=== PATIENT | male | born 1950 | race Caucasian/White ===

== ENCOUNTER 2017-11-20 13:46 | Emergency (ER) | payer MEDICARE, OTHER ==
[~2017-11-20] VITALS: Ht 175.3 cm; Wt 99.8 kg
--- OUTSIDE RECORDS SUMMARY | ~2017-11-20 | XMS | Encounter Summary ---
Demographics + + + | Address | [address] | | | [place] [address] | + + + | Home Phone | | + + + | Preferred Language | Unknown | + + + | Marital Status | | + + + | Oriental Orthodox Affiliation | 1041 | + + + | Race | Unknown | + + + | Ethnic Group | Unknown | + + + Author + + + | Author | [facility] | + + + | Organization | [facility] | + + + | Address | Unknown | + + + | Phone | Unavailable | + + + Support + + +---------+ + | Name | Relationship | Address | Phone | + + +---------+ + | Isaura Tyson | ECON | Unknown | | + + +---------+ + | Valarie Pearce | ECON | Unknown | | + + +---------+ + Care Team Providers + +------+ + | Care Supervisor [place] Department Name | Role | Phone | + +------+ + | Fracisco Guerrero MD | PCP | | + +------+ + Reason for Visit +--------+ + | Reason | Comments | +--------+ + | Other | Emphysema | +--------+ + Consult and Treat (Urgent) + +--------+ + + + + | Status | Reason | Specialty | Diagnoses / | Referred By | Referred To | | | | | Procedures | Contact | Contact | + +--------+ + + + + | Pending | | Pulmonology | Diagnoses | Sersilas, | Gu[place], | | Review | | | Emphysema, | Julio New, | Luzmaria | | | | | unspecified | [address] | MD Barbara | | | | | ([facility]) | TATONE | [address] | | | | | Hypoxemia | [place] | | | | | | Pulmonary | [address] | [place], [place] | | | | | nodules | Phone: | [address] Phone: | | | | | | [phone] | [phone] | | | | | | Fax: | Fax: | | | | | | [phone] | [phone] | + +--------+ + + + + Encounter Details +--------+---------+ + + + | Date | Type | Department | Care Team | Description | +--------+---------+ + + + | 09/27/ | Office | [facility] | Guero, | Asthma with COPD | | 2018 | Visit | Pulmonology [address] | Luzmaria Jimenez, | (chronic obstructive | | | | [address] [address] | [address] | pulmonary disease) | | | | [place], [place] | [place] [address] | ([facility]) (Primary Dx); | | | | [address] | [phone] | Nocturnal hypoxemia; | | | | [phone] | | Multiple pulmonary | | | | | | nodules; JONEL | | | | | | (obstructive sleep | | | | | | apnea); Personal | | | | | | history of tobacco | | | | | | use, presenting | | | | | | hazards to health | +--------+---------+ + + + Social History + +-------+ +--------+ + | Tobacco Use | Types | Packs/Day | Years | Date | | | | | Used | | + +-------+ +--------+ + | Former Smoker | | 3 | 20 | Quit: 06/09/1997 | + +-------+ +--------+ + + +---+---+---+ | Smokeless Tobacco: | | | | | Never Used | | | | + +---+---+---+ + + +---------+ + | Alcohol Use | Drinks/We | oz/Week | Comments | | | ek | | | + + +---------+ + | No | | | | + + +---------+ + + + + | Sex Assigned at | Date Recorded | | | | + + + | Not on file | | + + + as of this encounter Last Filed Vital Signs + + + + | Vital Sign | Reading | Time Taken | + + + + | Blood Pressure | 91/60 | 09/27/2017 10:47 AM PDT | + + + + | Pulse | 75 | 09/27/2017 10:47 AM PDT | + + + + | Temperature | 36.8 C (98.3 F) | 09/27/2017 10:47 AM PDT | + + + + | Respiratory Rate | - | - | + + + + | Oxygen Saturation | 92% | 09/27/2017 10:47 AM PDT | + + + + | Inhaled Oxygen | - | - | | Concentration | | | + + + + | Weight | - | - | + + + + | Height | 175.3 cm (5' 9") | 09/27/2017 10:47 AM PDT | + + + + | Body Mass Index | - | - | + + + + in this encounter Instructions Patient Instructions - Luzmaria Jack MD - 09/27/2017 10:45 AM PDTPLS ASK YOU R PCP TO REFER YOU TO SLEEP MEDICINE FOR EVALUATION OF OBSTRUCTIVE SLEEP APNEAin this encoun ter Progress Notes Luzmaria Jack MD - 09/27/2017 10:45 AM PDTFormatting of this note may be dif ferent from the original. Subjective: Patient ID: Cheko Salcedo is a 67 y.o. male with COPD/emphysema, chronic resp failur e with hypoxemia, Schizoaffective d/o, HTN, HPI Mr Salcedo is a pleasant 67 yr old man who had asthma as a child (was on inhaled treatme nts), and who has been diagnosed about 7 years ago with COPD, and has been on chronic oxygen therapy for at least 2 years ago. 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 He underwent IR embolization and ex lap for this. He was found to have a bleeding ulcer, but no evidence of malignancy. He was recently admitted in [facility] in June for an acute worsening of his dyspnea and was treated as a COPD exacerbation. He has been m aintained on Incruse Ellipta daily and Pulmicort nebulization BID. He is on oxygen at night at 2LPM. He also is on daily furosemide due to pedal edema. Clinically, he is short of breath with minimal exertion. He has difficulty walking on his f eet without assistance. He is awaiting a walker that was prescribed by his PCP. He has a chr onic cough productive of yellow to white phlegm. He denies hemoptysis. He is suspected of shen ving JONEL but has not undergone evaluation for this. He denies chest pains, but has pedal feliberto ma. He has no PNDs and no orthopnea. He lays usually on his side to sleep. He snores at [facility]. He denies dysphagia or aspiration episodes. He also denies heart burn or reflux s/s. He h as no seasonal allergies. He comes in with a home health care provider and his sister. SOCIAL HISTORY He is a past smoker, stopped 20 years ago, 2-3 packs a day for 30 years. 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 He denies any occupational exposures. He is origin ally from [place] and moved to [place] in 1979. He has no animals at home, but used to have cats. He d enies owning birds. The following portions of the patient's history were reviewed and updated as appropriate an d is available elsewhere in the record: allergies, current medications, past family history, past medical history, past social history, past surgical history and problem list. Review of Systems Constitutional: Positive for fatigue. Negative for activity change, appetite change, chills , diaphoresis, fever and unexpected weight change. HENT: Negative for congestion, nosebleeds, postnasal drip, rhinorrhea and sore throat. Eyes: Negative for visual disturbance. Respiratory: Positive for apnea (suspected), cough, shortness of breath and wheezing. Negat zac for choking, chest tightness and stridor. Cardiovascular: Positive for leg swelling. Negative for chest pain and palpitations. Gastrointestinal: Negative for constipation, diarrhea and nausea. Genitourinary: Negative for dysuria and frequency. Musculoskeletal: Positive for arthralgias and gait problem. Negative for joint swelling, my algias and neck pain. Skin: Negative for rash. Neurological: Negative for dizziness, weakness and light-headedness. Hematological: Negative for adenopathy. Psychiatric/Behavioral: Negative for sleep disturbance. Active Ambulatory Problems Diagnosis Date Noted Hypoxemia 06/09/2017 COPD (chronic obstructive pulmonary disease) ([facility]) 06/09/2017 Schizoaffective disorder ([facility]) 06/09/2017 Essential hypertension 06/09/2017 Memory deficits 06/09/2017 Resolved Ambulatory Problems Diagnosis Date Noted Weakness 06/09/2017 Past Medical History: Diagnosis Date Back injury Bleeding ulcer COPD (chronic obstructive pulmonary disease) ([facility]) Head injury Other chronic pain Schizoaffective disorder ([facility]) History reviewed. No pertinent surgical history. Objective: Physical Exam BP 91/60 (BP Location: Left upper arm, Patient Position: Sitting) | Pulse 75 | Temp 98.3 F (36.8 C) (Oral) | Ht 1.753 m (5' 9") Comment: per pt | SpO2 92% Vital signs reviewed. Oxygen saturation noted at 92% on ambient air GENERAL: obese, pale, pleasant, cooperative, oriented, not in distress HEENT: pink conjunctiva, anicteric sclerae, moist oral mucosae and without any lesions, nor mal appearing nasal mucosae; JVP cannot be assessed; MALAMPATTI 4; no thyromegaly; no cervic olymphadenopathies CVS: PMI laterally displaced, NRRR, S1 and S2, no murmurs/gallops/rubs CHEST: Examination of the chest showed a mild kyphosis. LUNGS: Normal effort, Equal in expansion, resonant to percussion, diffuse wheezing present, especially in bases, no crackles ABDOMEN: Protuberant abdomen, NABS, non-tender on palpation, liver span normal, no masses p alpated EXTREMITIES: good distal pulses, no cyanosis, no clubbing, no nail abnormalities, with +2 p edal edema NEURO: awake and oriented, no focal neurologic deficits, flat affect, on a wheelchair today LABORATORY AND IMAGING Pulmonary Function Test: 06/25/17 FEV1 1.45 (45%) FVC 2.19 (52%) FEV1/FVC 66 TLC RV/TLC DLCO CTA of the chest done on 06/09/17 reviewed Pulmonary Arteries: Diagnostic quality: Nearly nondiagnostic secondary to poor contrast opacification of the pu lmonary arteries. No gross evidence of large central pulmonary embolism. RV/LV is within normal limits. There is no interventricular septal bowing. There is trace r eflux of contrast material in the IVC. Lungs/Pleura: No consolidation. Scattered calcified granulomas measuring up to 7 mm. No ple ural effusion or pneumothorax. Mild bilateral centrilobular emphysema. Mediastinum: The heart size is normal. No pericardial effusion. No adenopathy. Thoracic Aorta: Ectatic ascending thoracic aorta measures up to 4.0 cm in diameter. Upper Abdomen: Unremarkable. Other: Focal kyphosis in the upper thoracic spine secondary to severe compression deformity at T3 which appears chronic. No acute osseous abnormality. Echo done on 06/10/17 reviewed Impression 1. This was a technically difficult study with suboptimal views. 2. Overall left ventricular systolic function is normal with, an EF between 60 - 65 %. 3. The right ventricle is moderately enlarged measuring between 3.8 - 4.1 cm. Assessment and Plan: 1. Asthma with COPD (chronic obstructive pulmonary disease) (HCC) Mr Salcedo is a 67 yr old man who I suspect has asthma-COPD overlap. He has declined in the past years, and especially from his last hospitalization. I have recommended changing In srikanth to Anoro, which will provide him with a LABA and a LAMA. Continue Budesonide nebulizat ion BID. I have educated the patient about the nature of COPD. This is a progressive disease, and igor ng function, unfortunately, declines every year, despite present therapy and even oxygen use . Our main goal is to prevent further exacerbation, and to moderate the manifestation of agustin g function decline by ensuring conditioning of muscles that are responsible for the extra ef fort of breathing, as well as to improve patient's endurance. These may all be accomplished by a formal exercise regimen, and/or by participating in a formal Pulmonary Rehabilitation P mariano. This program has been shown to improve functional status, exercise capacity, percept ion of dyspnea, and even has a role in improving depression in these patients. He and his si ster agreed, and so have sent a Pulm Rehab request through [facility]. He reportedly had a recent PFT done over there and we are awaiting its result. - umeclidinium-vilanterol (ANORO ELLIPTA) 62.5-25 MCG/INH inhaler; Inhale 1 puff into the l ungs daily. Dispense: 1 each; Refill: 11 2. Nocturnal hypoxemia Continue with O2 supplementation at night at 2LPM. His career resource specialist was instructed to let us know if his saturations are falling to 88% and below during the day. He may need to be place d on daytime O2 at that point. 3. Multiple pulmonary nodules He has small pulm nodules that are likely post inflammatory. Given his past history of smok ing, he will need to have a repeat CT in 2019 as part of continued surveillance. 4. JONEL (obstructive sleep apnea) I suspect that he has untreated OJNEL and I have encouraged him to talk to his PCP regarding this and potentially sending him to a sleep doctor close to his home. 5. Personal history of tobacco use, presenting hazards to health Continue being vigilant about signs of malignancy. CT chest should be repeated in June. Thank you for allowing us to participate in this patient's care. A return visit has been re quested/scheduled in three months for close clinical follow up. The patient was instructed t o call our clinic for any questions, and for any concerns regarding worsening dyspnea, cough or change in sputum production. We will see the patient sooner than the recommended follow up date, if with any worsening of symptoms. Luzmaria Jack MD Pulmonary and Critical Care Medicine [facility] [address] [place] [address] . in this encounter Plan of Treatment +--------+---------+ + + + | Date | Type | Specialty | Care Team | Description | +--------+---------+ + + + | 12/21/ | Office | Pulmonology | Guero, | | | 2017 | Visit | | Luzmaria Jimenez, | | | | | | MD [address] | | | | | | [place] [address] | | | | | | [phone] | | | | | | | | +--------+---------+ + + + as of this encounter Visit Diagnoses + + | Diagnosis | + + | Asthma with COPD (chronic obstructive pulmonary disease) (HCC) - Primary | + + | Chronic obstructive asthma, unspecified | + + | Nocturnal hypoxemia | + + | Hypoxemia | + + | Multiple pulmonary nodules | + + | Other nonspecific abnormal finding of lung field | + + | JONEL (obstructive sleep apnea) | + + | Obstructive sleep apnea (adult) (pediatric) | + + | Personal history of tobacco use, presenting hazards to health | + +
--- OUTSIDE RECORDS SUMMARY | ~2017-11-20 | XMS | Encounter Summary ---
Demographics + + + | Address | [address] | | | [place] [address] | + + + | Home Phone | | + + + | Preferred Language | Unknown | + + + | Marital Status | | + + + | Restorationist Affiliation | 1041 | + + + | Race | Unknown | + + + | Ethnic Group | Unknown | + + + Author + + + | Author | [facility] | + + + | Organization | [facility] | + + + | Address [...] Team Providers + +------+ + | Care Contact Lens Technician Name | Role | Phone | + +------+ + | Julio Motta | PCP | | + +------+ + Encounter Details +--------+ + + + + | Date | Type | Department | Care Team | Description | +--------+ + + + + | 10/26/ | Telephone | [facility] | Jeana Solitario RN | | | 2017 | | Pulmonology [address] | | | | | | [address] | | | | | | [place] | | | | | | [address] | | | | | | [phone] | | | +--------+ + + + + Social History + +-------+ [...] + + + as of this encounter Plan of Treatment +--------+---------+ + + + | Date | Type | Specialty | Care Team | Description | +--------+---------+ + + + | 12/21/ | Office | Pulmonology | [place], | | | 2017 | Visit | | Luzmaria Jimenez, | | | | | | MD [address] | | | | | | [facility] [address] | | | | | | [phone] | | | | | | | | +--------+---------+ + + + as of this encounter Visit Diagnoses Not on filein this encounter"
--- OUTSIDE RECORDS SUMMARY | ~2017-11-20 | XMS | Encounter Summary ---
Demographics + + + | Address | [address] | | | [place] [address] | + + + | Home Phone | | + + + | Preferred Language | Unknown | + + + | Marital Status | | + + + | Jain Affiliation | [id number] | + + + | Race | Unknown | + + + | Ethnic Group | Unknown | + + + Author + + + | Author | [facility] | + + + | Organization | [facility] | + + + | Address [...] Team Providers + +------+ + | Care Program Technician Name | Role | Phone | + +------+ + | Julio Motta | PCP | | + +------+ + Reason for Visit + + + | Reason | Comments | + + + | Shortness of Breath | | + + + | Weakness | | + + + Auth/Cert +--------+--------+ + + + + | Status | Reason | Specialty | Diagnoses / | Referred By | Referred To | | | | | Procedures | Contact | Contact | +--------+--------+ + + + + | | | Internal | Diagnoses | | [facility] | | | | Medicine | Dyspnea on | | [address] | | | | | exertion | | [address] | | | | | COPD with | | [address] | | | | | acute | | [place], [place] | | | | | exacerbation | | [address] Phone: | | | | | ([facility]) | | [phone] | +--------+--------+ + + + + Encounter Details +--------+ + + + + | Date | Type | Department | Care Team | Description | +--------+ + + + + | 09/28/ | Hospital | [facility] | Delfino Ochoa | COPD with acute | | 2018 - | Encounter | [facility] | D, DO [address] | exacerbation (HCC) | | | | [address] | [address] [place], [place] | (Primary Dx); | | 10/01/ | | [address] | [address] | Dyspnea on exertion; | | 2017 | | [place] [address] | Beata Jones DO | Hypoxemia; Leg | | | | [phone] | [address] | swelling | | | | | [place] [address] | | | | | | [phone] | | | | | | | | | | | | Ursula Friedman MD [address] | | [address] | | | | | | [place] [address] | | | | | | [phone] | | | | | | | | +--------+ + + + [...] + + + | Blood Pressure | 111/68 | 10/01/2017 12:30 PM PDT | + + + + | Pulse | 71 | 10/01/2017 12:30 PM PDT | + + + + | Temperature | 37.1 C (98.8 F) | 10/01/2017 12:30 PM PDT | + + + + | Respiratory Rate | 20 | 10/01/2017 12:30 PM PDT | + + + + | Oxygen Saturation | 91% | 10/01/2017 12:30 PM PDT | + + + + | Inhaled Oxygen | - | - | | Concentration | | | + + + + | Weight | 99.7 kg (219 lb 12.8 | 10/01/2017 2:58 AM PDT | | | oz) | | + + + + | Height | 175.3 cm (5' 9") | 09/28/2017 8:00 PM PDT | + + + + | Body Mass Index | 32.46 | 10/01/2017 2:58 AM PDT | + + + + in this encounter Discharge Summaries Ursula Friedman MD - 10/01/2017 12:47 PM PDTFormatting of this note may be different from the or [facility]. [facility]: Hospitalist Discharge Summary Date of Admission: 09/28/2017 Date of Discharge: 10/01/2017 Discharge Provider: Ursula Friedman MD Treatment Team: Admitting Provider: Beata Jones DO Discharge Diagnoses: Principal Problem: Hypoxemia Active Problems: BMI 31.0-31.9,adult Schizoaffective disorder (HCC) Leg swelling COPD (chronic obstructive pulmonary disease) (HCC) Resolved Problems: * No resolved hospital problems. * Final Diagnoses: Acute on chronic hypoxic respiratory failure CAP JONEL, nocturnal oxygen use but refuses CPAP COPD Schizoaffective disorder Persistent leukocytosis due to prednisone Procedures: * No surgery found * Significant Diagnostic Studies: Xr Chest Pa And Lateral Result Date: 09/28/2017 Bilateral pulmonary vascular congestion. Bibasilar atelectasis. Cta Chest Pulmonary Embolism W Iv Con Result Date: 09/29/2017 1. Some images are degraded due to motion artifact. No obvious pulmonary emboli. 2. Emphyse ma with pulmonary vascular congestion and bilateral infiltrate or atelectasis, right greater than left. 3. Dilated ascending aorta measuring 4.4 cm. No aortic dissection. 4. Marked tra cheomalacia. RADIA Electronically signed by Len Lozano MD on Sep 29 2017 12:56AM Referrin anderson Provider Line: [id number] ID: [id number] Lower Extremity Venous Doppler Bilateral Result Date: 09/28/2017 1. No evidence of lower extremity deep vein thrombosis. F HISTORY OF PRESENTATION: Cheko Howell is a 67 y.o. male with PMH significant for pHTN, COPD, JONEL, schiz oaffective disorder admitted for SOB. Pt is a resident of a long term in [place]. Pt use s nocturnal o2 but refuses CPAP. Pt sees Dr. Jack. Pt wishes to be DNR/DNI. Please re tano to H&P for full details. HOSPITAL COURSE: Pt has been having SOB, CONTI, orthopnea, edema in legs, productive cough, wheezing. Pt had CTA chest that was negative for PE but showed emphysema with pulmonary vascular congest ion and bilateral infiltrate or atelectasis and marked tracheomalacia. RVP was negative, sp utum culture was not a good specimen. procalcitonin was 0.93. It was felt that his symptom s were due to bilateral PNA with diastolic CHF exacerbation with underlying pulm HTN. Pt wa s started on IV levaquin and was diuresed. Pt also started on prednisone for concern for CO PD exacerbation but this is felt less likely will taper off the prednisone quickly. Pt stil l with coarse breath sounds on day of discharge but otherwise hypoxia resolved back to basel ine and pt clinically improved. Pt was initially requiring 4L during the day. On day of di hadleyrsebastián, pt on RA during the day and 2L at night. Pt can return to adult family home. Past Medical History Diagnosis Date Asthma with COPD (chronic obstructive pulmonary disease) ([facility]) 09/27/2017 Back injury Bleeding ulcer COPD (chronic obstructive pulmonary disease) ([facility]) Head injury JONEL (obstructive sleep apnea) 09/27/2017 Other chronic pain Schizoaffective disorder ([facility]) History reviewed. No pertinent surgical history. Allergies Allergen Reactions Peanut Oil Shortness of Breath and Hives Prescriptions Prior to Admission Medication Sig Dispense Refill Last Dose Acetaminophen 500 MG coapsule Take 1,000 mg by mouth 4 (four) times daily. 09/28/2017@ 1200 albuterol (PROVENTIL HFA;VENTOLIN HFA) 108 (90 Base) MCG/ACT inhaler Inhale 2 puffs int o the lungs every 4 (four) hours as needed for Wheezing. 09/28/2017 budesonide (PULMICORT) 0.5 MG/2ML nebulizer suspension Take 0.5 mg by nebulization 2 (t wo) times daily. 09/28/2017@0800 buPROPion (WELLBUTRIN XL) 300 MG 24 hr tablet Take 300 mg by mouth every morning. 09/03@0800 dextromethorphan polistirex (DELSYM) 30 MG/5ML ER suspension Take 60 mg by mouth every 12 (twelve) hours as needed for Cough. 09/27/2017@PM ergocalciferol (DRISDOL) 41384 units capsule Take 50,000 Units by mouth once a week. 09/24/2017 furosemide (LASIX) 20 MG tablet Take 20 mg by mouth daily. 09/28/2017@AM guaifenesin (MUCINEX MAX) 1200 MG 12hr tablet Take 1,200 mg by mouth every 6 (six) hour s as needed. 09/27/2017@PM L-methylfolate (DEPLIN) 15 MG tablet Take 15 mg by mouth daily with breakfast. 018@0800 lurasidone (LATUDA) 40 MG tablet Take 40 mg by mouth daily. 09/27/2017@1700 Methylcobalamin (METHYL B-12 PO) Take 5,000 mcg by mouth 2 (two) times daily. 09/29/19 18@0800 OLANZapine (ZYPREXA) 20 MG tablet Take 10 mg by mouth 2 (two) times daily. 09/28/2017@ 0800 omeprazole (PRILOSEC) 20 MG capsule Take 20 mg by mouth 2 (two) times daily. 8@AM oxycodone (OXY-IR) 5 MG capsule Take 1 capsule by mouth every 6 (six) hours as needed. 30 capsule 0 2 weeks ago polyethylene glycol (GLYCOLAX) packet Take 17 g by mouth daily. 09/28/2017@0800 propranolol (INDERAL) 20 MG tablet Take 20 mg by mouth 2 (two) times daily. 09/28/2017 @0800 sertraline (ZOLOFT) 100 MG tablet Take 50-100 mg by mouth See Admin Instructions. Take 100 mg by mouth every morning and 50 mg by mouth in the afternoon 09/28/2017@0800 simvastatin (ZOCOR) 40 MG tablet Take 40 mg by mouth nightly. 09/27/2017@PM topiramate (TOPAMAX) 25 MG tablet Take 25 mg by mouth 2 (two) times daily. 09/28/2017@ 0700 umeclidinium-vilanterol (ANORO ELLIPTA) 62.5-25 MCG/INH inhaler Inhale 1 puff into the lungs daily. 1 each 11 09/28/2017@0800 DISCHARGE EXAM Vital Signs: BP 111/68 (BP Location: Left upper arm) | Pulse 71 | Temp 98.8 F (37.1 C) (Oral) | R constanza 20 | Ht 1.753 m (5' 9") | Wt 99.7 kg (219 lb 12.8 oz) | SpO2 91% | BMI 32.46 kg/m Temp: [97.7 F (36.5 C)-98.8 F (37.1 C)] 98.8 F (37.1 C) (10/01 1230) BP: (101-122)/(64-75) 111/68 (10/01 1230) Heart Rate: [68-87] 71 (10/01 1230) Resp: [16-20] 20 (10/01 1230) SpO2: [91 %-95 %] 91 % (10/01 1230) Weight: [99.7 kg (219 lb 12.8 oz)] 99.7 kg (219 lb 12.8 oz) (10/01 0258) Physical Exam Constitutional: He is oriented to person, place, and time. He appears well-developed and we ll-nourished. No distress. HENT: Head: Normocephalic and atraumatic. Eyes: Pupils are equal, round, and reactive to light. EOM are normal. Cardiovascular: Normal rate, regular rhythm and normal heart sounds. No murmur heard. Pulmonary/Chest: No respiratory distress. He has no wheezes. Coarse breath sounds at bases but with adequate air exchange Abdomina/Gl: Soft. Bowel sounds are normal. He exhibits no distension. There is no tenderne ss. Musculoskeletal: Normal range of motion. He exhibits no edema. Neurological: He is alert and oriented to person, place, and time. Skin: Skin is warm and dry. DATA CBC: Lab Results Component Value Date WBC 11.28 (H) 10/01/2017 RBC 4.04 (L) 10/01/2017 HGB 13.1 (L) 10/01/2017 HCT 38.8 (L) 10/01/2017 MCV 96.1 10/01/2017 MCH 32.3 10/01/2017 MCHC 33.6 10/01/2017 RDW 48.6 10/01/2017 PLT 196 10/01/2017 MPV 9.9 10/01/2017 DIFFTYPE AUTOMATED 10/01/2017 CMP: Lab Results Component Value Date NA 144 10/01/2017 K 3.4 (L) 10/01/2017 CL 107 10/01/2017 CO2 26 10/01/2017 ANIONGAP 14 10/01/2017 GLUF 106 (H) 10/01/2017 BUN 17 10/01/2017 CREATININE 0.8 10/01/2017 BCR 21 10/01/2017 CA 8.8 10/01/2017 PROT 6.8 09/30/2017 ALB 2.8 (L) 09/30/2017 GLOB 4.0 09/30/2017 BILITOT 0.2 09/30/2017 ALP 76 09/30/2017 AST 20 09/30/2017 ALT 26 09/30/2017 EGFR >60 10/01/2017 Magnesium: Lab Results Component Value Date MG 2.3 09/29/2017 Phosphorus: Lab Results Component Value Date PHOS 2.1 (L) 09/29/2017 Last 3 Troponin: Lab Results Component Value Date TROPONINI <0.020 09/28/2017 TROPONINI <0.020 06/09/2017 TROPONINI <0.020 06/09/2017 Results Procedure Component Value Units Date/Time Sputum culture [[id number]] Collected: 09/29/17 0800 Specimen: Sputum from Sputum Updated: 09/29/17 1513 Specimen Description SPUTUM GRAM STAIN GREATER THAN 10 SEC/LPF GRAM STAIN LESS THAN 10 WBCS/LPF GRAM STAIN 3+ GRAM STAIN GRAM POSITIVE COCCI CULTURE SMEAR CONTAINS GREATER THAN 10 SEC/LPF SUGGESTIVE OF POOR QUALITY SPECIMEN. SPEC IMEN WILL NOT BE CULTURED OR WILL BE CULTURED BY SPECIAL REQUEST ONLY. PLEASE RECOLLECT IF CLINICALLY INDICATED. SPECIMEN WILL BE HELD 48 HOURS. Respiratory Filmarray [[id number]] Collected: 09/28/17 2234 Specimen: Nasopharyngeal Culture Updated: 09/29/17 0337 ADENOVIRUS Not Detected CORONAVIRUS 229E Not Detected CORONAVIRUS HKU1 Not Detected CORONAVIRUS NL63 Not Detected CORONAVIRUS OC43 Not Detected HUMAN METAPNEUMOVIRUS Not Detected HUMAN RHINO/ENTERO Not Detected INFLUENZA A Not Detected INFLUENZA B Not Detected PARAINFLUENZA 1 Not Detected PARAINFLUENZA 2 Not Detected PARAINFLUENZA 3 Not Detected PARAINFLUENZA 4 Not Detected RESP SYNCYTIAL VIRUS Not Detected BORDETELLA PERTUSSIS Not Detected CHLAMYDIAE PNEUMONIAE Not Detected MYCOPLASMA PNEUMONIAE Not Detected RESP PANEL INTERP Testing performed by Molecular Methodology PLAN 1. Return to [facility] 2. Complete antibiotics Disposition: [facility] Condition: Improved/good Code Status: DNR/DNI No discharge procedures on file. Follow up: Per Pt None Medication List START taking these medications ipratropium-albuterol 0.5-2.5 mg/3mL QTY: 360 mL Refills: 0 Commonly known as: DUO-NEB Every 4 hours x 5 days then Q4H prn for SOB or wheezing levofloxacin 750 MG tablet QTY: 5 tablet Refills: 0 Commonly known as: LEVAQUIN Take 1 tablet by mouth daily. predniSONE 20 MG tablet QTY: 6 tablet Refills: 0 Commonly known as: DELTASONE Take 2 tabs x 3 days then stop CONTINUE taking these medications Acetaminophen 500 MG coapsule Refills: 0 albuterol 108 (90 Base) MCG/ACT inhaler Refills: 0 Commonly known as: PROVENTIL HFA;VENTOLIN HFA budesonide 0.5 MG/2ML nebulizer suspension Refills: 0 Commonly known as: PULMICORT buPROPion 300 MG 24 hr tablet Refills: 0 Commonly known as: WELLBUTRIN XL dextromethorphan polistirex 30 MG/5ML ER suspension Refills: 0 Commonly known as: DELSYM ergocalciferol 56089 units capsule Refills: 0 Commonly known as: DRISDOL furosemide 20 MG tablet Refills: 0 Commonly known as: LASIX guaifenesin 1200 MG 12hr tablet Refills: 0 Commonly known as: MUCINEX MAX L-methylfolate 15 MG tablet Refills: 0 Commonly known as: DEPLIN LATUDA 40 MG tablet Refills: 0 Generic drug: lurasidone METHYL B-12 PO Refills: 0 OLANZapine 20 MG tablet Refills: 0 Commonly known as: ZyPREXA omeprazole 20 MG capsule Refills: 0 Commonly known as: PRILOSEC oxycodone 5 MG capsule QTY: 30 capsule Refills: 0 Commonly known as: OXY-IR Take 1 capsule by mouth every 6 (six) hours as needed. polyethylene glycol packet Refills: 0 Commonly known as: GLYCOLAX propranolol 20 MG tablet Refills: 0 Commonly known as: INDERAL sertraline 100 MG tablet Refills: 0 Commonly known as: ZOLOFT simvastatin 40 MG tablet Refills: 0 Commonly known as: ZOCOR topiramate 25 MG tablet Refills: 0 Commonly known as: TOPAMAX umeclidinium-vilanterol 62.5-25 MCG/INH inhaler QTY: 1 each Refills: 11 For diagnoses: Asthma with COPD (chronic obstructive pulmonary disease) Commonly known as: ANORO ELLIPTA Inhale 1 puff into the lungs daily. You might also be taking other medications not listed above. If you have questions about an y of your other medications, talk to the person who prescribed them or your Primary Care Pro vider. Where to Get Your Medications These medications were sent to [facility] - [address] [address] levofloxacin 750 MG tablet You can get these medications from any pharmacy Bring a paper prescription for each of these medications ipratropium-albuterol 0.5-2.5 mg/3mL predniSONE 20 MG tablet Discharge took >30 minutes, to include final examination, discussion of admission, and prep aration of prescriptions, instructions for on-going care, follow-up and documentation of dis charge summary. Ursula Friedman MD 10/01/2017in this encounter Discharge Instructions Ursula Friedman MD - 10/01/2017Return home with previous orders Resume home meds as before Prednisone taper and complete the course of levaquinin this encounter Medications at Time of Discharge + + + +---------+ + + | Medication | Sig. | Disp. | Refills | Start | End Date | | | | | | Date | | + + + +---------+ + + | Acetaminophen 500 | Take 1,000 mg by | | | | | | MG coapsule | mouth 4 (four) times | | | | | | | daily. | | | | | + + + +---------+ + + | albuterol | Inhale 2 puffs into | | | | | | (PROVENTIL | the lungs every 4 | | | | | | HFA;VENTOLIN HFA) | (four) hours as | | | | | | 108 (90 Base) | needed for Wheezing. | | | | | | MCG/ACT inhaler | | | | | | + + + +---------+ + + | budesonide | Take 0.5 mg by | | | | | | (PULMICORT) 0.5 | nebulization 2 (two) | | | | | | MG/2ML nebulizer | times daily. | | | | | | suspension | | | | | | + + + +---------+ + + | buPROPion | Take 300 mg by mouth | | | | | | (WELLBUTRIN XL) 300 | every morning. | | | | | | MG 24 hr tablet | | | | | | + + + +---------+ + + | dextromethorphan | Take 60 mg by mouth | | | | | | polistirex (DELSYM) | every 12 (twelve) | | | | | | 30 MG/5ML ER | hours as needed for | | | | | | suspension | Cough. | | | | | + + + +---------+ + + | ergocalciferol | Take 50,000 Units by | | | | | | (DRISDOL) 20669 | mouth once a week. | | | | | | units capsule | | | | | | + + + +---------+ + + | furosemide (LASIX) | Take 20 mg by mouth | | | | | | 20 MG tablet | daily. | | | | | + + + +---------+ + + | guaifenesin | Take 1,200 mg by | | | | | | (MUCINEX MAX) 1200 | mouth every 6 (six) | | | | | | MG 12hr tablet | hours as needed. | | | | | + + + +---------+ + + | | Every 4 hours x 5 | 360 mL | 0 | 07/30/20 | | | ipratropium-albutero | days then Q4H prn | | | 18 | | | l (DUO-NEB) 0.5-2.5 | for SOB or wheezing | | | | | | mg/3mL | | | | | | + + + +---------+ + + | L-methylfolate | Take 15 mg by mouth | | | | | | (DEPLIN) 15 MG | daily with | | | | | | tablet | breakfast. | | | | | + + + +---------+ + + | levofloxacin | Take 1 tablet by | 5 | 0 | 10/02/19 | | | (LEVAQUIN) 750 MG | mouth daily. | tablet | | 18 | | | tablet | | | | | | + + + +---------+ + + | lurasidone | Take 40 mg by mouth | | | | | | (LATUDA) 40 MG | daily. | | | | | | tablet | | | | | | + + + +---------+ + + | Methylcobalamin | Take 5,000 mcg by | | | | | | (METHYL B-12 PO) | mouth 2 (two) times | | | | | | | daily. | | | | | + + + +---------+ + + | OLANZapine | Take 10 mg by mouth | | | | | | (ZYPREXA) 20 MG | 2 (two) times daily. | | | | | | tablet | | | | | | + + + +---------+ + + | omeprazole | Take 20 mg by mouth | | | | | | (PRILOSEC) 20 MG | 2 (two) times daily. | | | | | | capsule | | | | | | + + + +---------+ + + | oxycodone (OXY-IR) | Take 1 capsule by | 30 | 0 | 06/10/ | | | 5 MG capsule | mouth every 6 (six) | capsule | | 18 | | | | hours as needed. | | | | | + + + +---------+ + + | polyethylene | Take 17 g by mouth | | | | | | glycol (GLYCOLAX) | daily. | | | | | | packet | | | | | | + + + +---------+ + + | predniSONE | Take 2 tabs x 3 days | 6 | 0 | 10/01/ | | | (DELTASONE) 20 MG | then stop | tablet | | 18 | | | tablet | | | | | | + + + +---------+ + + | propranolol | Take 20 mg by mouth | | | | | | (INDERAL) 20 MG | 2 (two) times daily. | | | | | | tablet | | | | | | + + + +---------+ + + | sertraline | Take 50-100 mg by | | | | | | (ZOLOFT) 100 MG | mouth See Admin | | | | | | tablet | Instructions. Take | | | | | | | 100 mg by mouth | | | | | | | every morning and 50 | | | | | | | mg by mouth in the | | | | | | | afternoon | | | | | + + + +---------+ + + | simvastatin | Take 40 mg by mouth | | | | | | (ZOCOR) 40 MG tablet | nightly. | | | | | + + + +---------+ + + | topiramate | Take 25 mg by mouth | | | | | | (TOPAMAX) 25 MG | 2 (two) times daily. | | | | | | tablet | | | | | | + + + +---------+ + + | | Inhale 1 puff into | 1 each | 11 | // | | | umeclidinium-vilante | the lungs daily. | | | 18 | | | rol (ANORO ELLIPTA) | | | | | | | 62.5-25 MCG/INH | | | | | | | inhalerIndications: | | | | | | | Asthma with COPD | | | | | | | (chronic obstructive | | | | | | | pulmonary disease) | | | | | | | ([facility]) | | | | | | + + + +---------+ + + as of this encounter Progress Notes Ursula Friedman MD - 09/30/2017 7:47 AM PDTFormatting of this note may be different from the or iginal. [facility]: Hospitalist Progress Note Hospital Day: LOS: 2 days Hospital Course: 67 y/o CM with PMH significant for pHTN, COPD, JONEL, schizoaffective disorder admitted for S OB. Pt is a resident of a long term in [place]. Pt uses nocturnal o2 but refuses CPAP. Pt sees Dr. Jack. Pt wishes to be DNR/DNI. Pt has been having SOB, CONTI, orthopnea, edema in legs, productive cough, wheezing. Post-Op Day: * No surgery found * SUBJECTIVE Events Overnight: Had run of 10 PVC early this morning, afebrile. Has not gotten out of bed, okay to work with PT. Says no or I don't know to many answers OBJECTIVE Vital Signs: BP 112/73 (BP Location: Left upper arm) | Pulse 63 | Temp 97.6 F (36.4 C) (Oral) | R constanza 18 | Ht 1.753 m (5' 9") | Wt 98.8 kg (217 lb 13 oz) | SpO2 96% | BMI 32.17 kg/m Temp: [97.6 F (36.4 C)-98 F (36.7 C)] 97.6 F (36.4 C) (09/30 724) BP: (102-139)/(56-76) 112/73 (09/30 724) Heart Rate: [60-93] 63 (09/30 724) Resp: [16-22] 18 (09/30 724) SpO2: [94 %-100 %] 96 % (09/30 724) DATA Recent Labs Lab 09/30/17 0420 09/29/17 0447 09/28/17 1740 WBC 12.32* 10.93 12.67* HGB 13.3 13.0* 13.5 HCT 39.2 37.9* 40.7 PLT 186 180 194 NEUTOPHILPCT 80.24 -- 78.22 MONOPCT 7.82 -- 8.09 Recent Labs Lab 09/30/17 0420 09/29/17 0447 09/28/172008 NA 143 143 140 K 3.5 3.7 3.7 CL 110* 108 107 CO2 25 28 26 BUN 17 15 14 CREATININE 0.8 0.9 0.86 PROT 6.8 6.7 7.3 BILITOT 0.2 0.4 0.4 ALT 26 23 27 AST 20 14 15 Phosphorus: Recent Labs Lab 09/29/177 PHOS 2.1* Invalid input(s): LABALBU Recent Labs Lab 09/29/17 044 MG 2.3 No results for input(s): AMYLASE in the last 168 hours. No results for input(s): LIPASE in the last 168 hours. Recent Labs Lab 09/28/17 1941 BEART 0 Recent Labs Lab 09/28/17200809/28/17 1800 09/28/17 1740 APTT 31 29 SPECIMEN HEMOLYZED, WILL BE REDRAWN RN TO SEND INR 1.1 1.1 SPECIMEN HEMOLYZED, WILL BE REDRAWN RN TO SEND No results for input(s): TSH, T3FREE, FREET4 in the last 168 hours. Recent Labs Lab 09/28/17200809/28/17 1740 CKTOTAL 51* SPECIMEN HEMOLYZED, WILL BE REDRAWN RN TO SEND TROPONINI <0.020 -- CKMBINDEX UNABLE TO CALCULATE SPECIMEN HEMOLYZED, WILL BE REDRAWN RN TO SEND Results Procedure Component Value Units Date/Time Sputum culture [[id number]] Collected: 09/29/17 0800 Specimen: Sputum from Sputum Updated: 09/29/17 1513 Specimen Description SPUTUM GRAM STAIN GREATER THAN 10 SEC/LPF GRAM STAIN LESS THAN 10 WBCS/LPF GRAM STAIN 3+ GRAM STAIN GRAM POSITIVE COCCI CULTURE SMEAR CONTAINS GREATER THAN 10 SEC/LPF SUGGESTIVE OF POOR QUALITY SPECIMEN. SPEC IMEN WILL NOT BE CULTURED OR WILL BE CULTURED BY SPECIAL REQUEST ONLY. PLEASE RECOLLECT IF CLINICALLY INDICATED. SPECIMEN WILL BE HELD 48 HOURS. Respiratory Filmarray [[id number]] Collected: 09/28/17 2234 Specimen: Nasopharyngeal Culture Updated: 09/29/17 0337 ADENOVIRUS Not Detected CORONAVIRUS 229E Not Detected CORONAVIRUS HKU1 Not Detected CORONAVIRUS NL63 Not Detected CORONAVIRUS OC43 Not Detected HUMAN METAPNEUMOVIRUS Not Detected HUMAN RHINO/ENTERO Not Detected INFLUENZA A Not Detected INFLUENZA B Not Detected PARAINFLUENZA 1 Not Detected PARAINFLUENZA 2 Not Detected PARAINFLUENZA 3 Not Detected PARAINFLUENZA 4 Not Detected RESP SYNCYTIAL VIRUS Not Detected BORDETELLA PERTUSSIS Not Detected CHLAMYDIAE PNEUMONIAE Not Detected MYCOPLASMA PNEUMONIAE Not Detected RESP PANEL INTERP Testing performed by Molecular Methodology Physical Exam Constitutional: He is oriented to person, place, and time. He appears well-developed and we ll-nourished. No distress. Face mask HENT: Head: Normocephalic and atraumatic. Eyes: Pupils are equal, round, and reactive to light. EOM are normal. Cardiovascular: Normal rate, regular rhythm and normal heart sounds. Pulmonary/Chest: Effort normal and breath sounds normal. No respiratory distress. He has no wheezes. Abdomina/Gl: Soft. Bowel sounds are normal. He exhibits no distension. There is no tenderne ss. Musculoskeletal: Normal range of motion. He exhibits edema (improved). Neurological: He is alert and oriented to person, place, and time. Skin: Skin is warm and dry. Scheduled Medications atorvastatin 20 mg Oral Nightly budesonide 0.5 mg Nebulization 2 times daily buPROPion 300 mg Oral QAM enoxaparin 40 mg Subcutaneous Q24H famotidine 20 mg Oral BID Or famotidine 20 mg Intravenous BID furosemide 20 mg Oral Daily ipratropium-albuterol 3 mL Nebulization Q4H WA levofloxacin 500 mg Intravenous Q24H lurasidone 40 mg Oral Daily OLANZapine 10 mg Oral BID pantoprazole 40 mg Oral QAM AC predniSONE 50 mg Oral Daily with breakfast propranolol 20 mg Oral BID sertraline 100 mg Oral Daily sertraline 50 mg Oral See Admin Instructions sodium chloride (PF) 10 mL Intravenous Q8H topiramate 25 mg Oral BID umeclidinium-vilanterol 1 puff Inhalation Daily Continuous Infusions PRN Medications acetaminophen OR acetaminophen, polyethylene glycol, zolpidem Xr Chest Pa And Lateral Result Date: 09/28/2017 Bilateral pulmonary vascular congestion. Bibasilar atelectasis. Cta Chest Pulmonary Embolism W Iv Con Result Date: 09/29/2017 1. Some images are degraded due to motion artifact. No obvious pulmonary emboli. 2. Emphyse ma with pulmonary vascular congestion and bilateral infiltrate or atelectasis, right greater than left. 3. Dilated ascending aorta measuring 4.4 cm. No aortic dissection. 4. Marked tra cheomalacia. RADIA Electronically signed by Len Lozano MD on Sep 29 2017 12:56AM Referrin anderson Provider Line: [phone] ID: [id number] Lower Extremity Venous Doppler Bilateral Result Date: 09/28/2017 1. No evidence of lower extremity deep vein thrombosis. LEM LIST Principal Problem: Hypoxemia Active Problems: BMI 31.0-31.9,adult Schizoaffective disorder (HCC) Leg swelling COPD (chronic obstructive pulmonary disease) ([facility]) ASSESSMENT & PLAN 1. Acute on chronic hypoxic respiratory failure: thought to be due to pna. Pt uses nocturn al oxygen. CTA chest no obvious PE, emphysema with pulm vascular congestion and bilateral i nfiltrate/atelectasis R>L and tracheomalacia. LE US doppler negative. CXR showed bilateral pulmonary vascular congestion, and atelectasis. BNP normal. RVP negative. procalcitonin 0.93. Sputum culture not good specimen. Bcx negative to date. Recent 2D echo from 06/2017 showed EF 60-65%. Gentle diuresis, IV levaquin, prednisone and scheduled duoneb. 2. COPD: prednisone, levaquin, scheduled duoneb. H/o smoking 2-3 packs/day for 30 years, s topped 20 years ago. 3. Schizoaffective disorder: continue home meds, stable. Pt lives at long term 4. Obesity BMI 32 5. JONEL pt refuses CPAP. Continue nocturnal oxygen 2L. Wean off oxygen during the day. 6. DVT prophylaxis: lovenox. 7. CAP: leukocytosis, no fever but elevated procalcitonin and infiltrates seen on CTA chest R > L. On levaquin. No blood cultures done. Recheck procalcitonin to see if trending down . Recurrent leukocytosis likely due to prednisone. 8. 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 No evidence of hieu gnancy. Disposition: inpatient Code Status: DNR/DNI Ursula Friedman MD 09/30/2017 Ursula Friedman MD - 09/29/2017 7:52 AM PDTFormatting of this note may be different from the or iginal. [facility]: Hospitalist Progress Note Hospital Day: LOS: 1 day Hospital Course: 67 y/o CM with PMH significant for pHTN, COPD, JONEL, schizoaffective disorder admitted for S OB. Pt is a resident of a long term in [place]. Pt uses nocturnal o2 but refuses CPAP. Pt sees Dr. Jack. Pt wishes to be DNR/DNI. Pt has been having SOB, CONTI, orthopnea, edema in legs, productive cough, wheezing. Post-Op Day: * No surgery found * SUBJECTIVE Events Overnight: Feeling better, no complaints, says I don't know to many questions though OBJECTIVE Vital Signs: BP 114/61 (BP Location: Right upper arm) | Pulse 88 | Temp 97.8 F (36.6 C) (Oral) | Resp 22 | Ht 1.753 m (5' 9") | Wt 98.8 kg (217 lb 13 oz) | SpO2 95% | BMI 32.17 kg/m Temp: [97.3 F (36.3 C)-98.3 F (36.8 C)] 97.8 F (36.6 C) (09/29 342) BP: (97-121)/(55-77) 114/61 (09/29 342) Heart Rate: [73-94] 88 (09/29 342) Resp: [20-25] 22 (09/29 342) SpO2: [85 %-96 %] 95 % (09/29 342) Height: [175.3 cm (5' 9")] 175.3 cm (5' 9") (09/29 1999) Weight: [95.3 kg (210 lb)-98.8 kg (217 lb 13 oz)] 98.8 kg (217 lb 13 oz) (09/29 342) BMI (Calculated): [32.2] 32.2 (09/29 1999) DATA Recent Labs Lab 09/29/17 0447 09/28/17 1740 WBC 10.93 12.67* HGB 13.0* 13.5 HCT 37.9* 40.7 PLT 180 194 NEUTOPHILPCT -- 78.22 MONOPCT -- 8.09 Recent Labs Lab 09/29/17 0447 09/28/17200809/28/17 1740 NA 143 140 SPECIMEN HEMOLYZED, WILL BE REDRAWN RN TO SEND K 3.7 3.7 SPECIMEN HEMOLYZED, WILL BE REDRAWN RN TO SEND CL 108 107 SPECIMEN HEMOLYZED, WILL BE REDRAWN RN TO SEND CO2 28 26 SPECIMEN HEMOLYZED, WILL BE REDRAWN RN TO SEND BUN 15 14 SPECIMEN HEMOLYZED, WILL BE REDRAWN RN TO SEND CREATININE 0.9 0.86 SPECIMEN HEMOLYZED, WILL BE REDRAWN RN TO SEND PROT 6.7 7.3 SPECIMEN HEMOLYZED, WILL BE REDRAWN RN TO SEND BILITOT 0.4 0.4 SPECIMEN HEMOLYZED, WILL BE REDRAWN RN TO SEND ALT 23 27 SPECIMEN HEMOLYZED, WILL BE REDRAWN RN TO SEND AST 14 15 SPECIMEN HEMOLYZED, WILL BE REDRAWN RN TO SEND Phosphorus: Recent Labs Lab 09/29/17446 PHOS 2.1* Invalid input(s): LABALBU Recent Labs Lab 09/29/17446 MG 2.3 No results for input(s): AMYLASE in the last 168 hours. No results for input(s): LIPASE in the last 168 hours. Recent Labs Lab 09/28/17 1941 BEART 0 Recent Labs Lab 09/28/17200809/28/17 1800 09/28/17 1740 APTT 31 29 SPECIMEN HEMOLYZED, WILL BE REDRAWN RN TO SEND INR 1.1 1.1 SPECIMEN HEMOLYZED, WILL BE REDRAWN RN TO SEND No results for input(s): TSH, T3FREE, FREET4 in the last 168 hours. Recent Labs Lab 09/28/17200809/28/17 1740 CKTOTAL 51* SPECIMEN HEMOLYZED, WILL BE REDRAWN RN TO SEND TROPONINI <0.020 -- CKMBINDEX UNABLE TO CALCULATE SPECIMEN HEMOLYZED, WILL BE REDRAWN RN TO SEND Results Procedure Component Value Units Date/Time Sputum culture [[id number]] Collected: 09/29/17 0800 Specimen: Sputum from Sputum Updated: 09/29/17 0808 Respiratory Filmarray [[id number]] Collected: 09/28/17 2234 Specimen: Nasopharyngeal Culture Updated: 09/29/17 0337 ADENOVIRUS Not Detected CORONAVIRUS 229E Not Detected CORONAVIRUS HKU1 Not Detected CORONAVIRUS NL63 Not Detected CORONAVIRUS OC43 Not Detected HUMAN METAPNEUMOVIRUS Not Detected HUMAN RHINO/ENTERO Not Detected INFLUENZA A Not Detected INFLUENZA B Not Detected PARAINFLUENZA 1 Not Detected PARAINFLUENZA 2 Not Detected PARAINFLUENZA 3 Not Detected PARAINFLUENZA 4 Not Detected RESP SYNCYTIAL VIRUS Not Detected BORDETELLA PERTUSSIS Not Detected CHLAMYDIAE PNEUMONIAE Not Detected MYCOPLASMA PNEUMONIAE Not Detected RESP PANEL INTERP Testing performed by [employer] Method[employer] Physical Exam Constitutional: He is oriented to person, place, and time. He appears well-developed and we ll-nourished. No distress. Face mask HENT: Head: Normocephalic and atraumatic. Eyes: Pupils are equal, round, and reactive to light. EOM are normal. Cardiovascular: Normal rate, regular rhythm and normal heart sounds. Pulmonary/Chest: Effort normal and breath sounds normal. No respiratory distress. He has no wheezes. Abdomina/Gl: Soft. Bowel sounds are normal. He exhibits no distension. There is no tenderne ss. Musculoskeletal: Normal range of motion. He exhibits edema (legs). Neurological: He is alert and oriented to person, place, and time. Skin: Skin is warm and dry. Scheduled Medications atorvastatin 20 mg Oral Nightly budesonide 0.5 mg Nebulization 2 times daily buPROPion 300 mg Oral QAM enoxaparin 40 mg Subcutaneous Q24H famotidine 20 mg Oral BID Or famotidine 20 mg Intravenous BID furosemide 20 mg Oral Daily ipratropium-albuterol 3 mL Nebulization Q4H WA levofloxacin 500 mg Intravenous Q24H lurasidone 40 mg Oral Daily OLANZapine 10 mg Oral BID pantoprazole 40 mg Oral QAM AC predniSONE 50 mg Oral Daily with breakfast propranolol 20 mg Oral BID sertraline 100 mg Oral Daily sertraline 50 mg Oral See Admin Instructions sodium chloride (PF) 10 mL Intravenous Q8H topiramate 25 mg Oral BID umeclidinium-vilanterol 1 puff Inhalation Daily Continuous Infusions PRN Medications acetaminophen OR acetaminophen, polyethylene glycol, zolpidem Xr Chest Pa And Lateral Result Date: 09/28/2017 Bilateral pulmonary vascular congestion. Bibasilar atelectasis. Cta Chest Pulmonary Embolism W Iv Con Result Date: 09/29/2017 1. Some images are degraded due to motion artifact. No obvious pulmonary emboli. 2. Emphyse ma with pulmonary vascular congestion and bilateral infiltrate or atelectasis, right greater than left. 3. Dilated ascending aorta measuring 4.4 cm. No aortic dissection. 4. Marked tra cheomalacia. RADIA Electronically signed by Len Lozano MD on Sep 29 2017 12:56AM Brianrin anderson Provider Line: [phone] ID: [id number] Lower Extremity Venous Doppler Bilateral Result Date: 09/28/2017 1. No evidence of lower extremity deep vein thrombosis. LEM LIST Principal Problem: Hypoxemia Active Problems: BMI 31.0-31.9,adult Schizoaffective disorder (HCC) Leg swelling COPD (chronic obstructive pulmonary disease) ([facility]) ASSESSMENT & PLAN 1. Acute on chronic hypoxic respiratory failure: pt uses nocturnal oxygen. CTA chest no ob vious PE, emphysema with pulm vascular congestion and bilateral infiltrate/atelectasis R>L a nd tracheomalacia. LE US doppler negative. CXR showed bilateral pulmonary vascular congest ion, and atelectasis. BNP normal. RVP negative. procalcitonin 0.93. Sputum culture not g ood specimen. 2. COPD: prednisone, levaquin, scheduled duoneb. H/o smoking 2-3 packs/day for 30 years, s topped 20 years ago. 3. Schizoaffective disorder: continue home meds, stable. Pt lives at long term 4. Obesity BMI 32 5. JONEL pt refuses CPAP. Continue nocturnal oxygen 2L. 6. DVT prophylaxis: lovenox. 7. CAP: leukocytosis resolved, no fever but elevated procalcitonin and infiltrates seen on CTA chest R > L. On levaquin. No blood cultures done. Recheck procalcitonin to see if henry ding down. 8. 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 No evidence of hieu gnancy. Disposition: inpatient Code Status: Full Code Ursula Friedman MD 09/29/2017 Dakota Lopez, [facility] - 09/28/2017 9:03 PM PDTNote ccl 92.3ml/min meds reviewed pharma cy will follow [facility] [address]in this encounter Plan of Treatment +--------+---------+ + + + | Date | Type | Specialty | Care Team | Description | +--------+---------+ + + + | 12/21/ | Office | Pulmonology | Guero, | | | 2018 | Visit | | Luzmaria Jimenez, | | | | | | MD [address] | | | | | | [place] [address] | | | | | | [phone] | | | | | | | | +--------+---------+ + + + as of this encounter Procedures + +--------+ + + + | Procedure Name | Priori | Date/Time | Associated Diagnosis | Comments | | | ty | | | | + +--------+ + + + | PROCALCITONIN | Routin | 10/01/2017 | | Results for this | | | e - AM | 4:25 AM | | procedure are in the | | | | PDT | | results section. | + +--------+ + + + | CBC W/AUTO DIFF | Routin | 10/01/2017 | | Results for this | | (REFLEX TO MANUAL) | e | 4:25 AM | | procedure are in the | | | | PDT | | results section. | + +--------+ + + + | BASIC METABOLIC | Routin | 10/01/2017 | | Results for this | | PANEL | e - AM | 4:25 AM | | procedure are in the | | | | PDT | | results section. | + +--------+ + + + | CBC W/AUTO DIFF | Routin | 09/30/2017 | | Results for this | | (REFLEX TO MANUAL) | e | 4:20 AM | | procedure are in the | | | | PDT | | results section. | + +--------+ + + + | COMPREHENSIVE | Routin | 09/30/2017 | | Results for this | | METABOLIC PANEL | e | 4:20 AM | | procedure are in the | | | | PDT | | results section. | + +--------+ + + + | SPUTUM CULT W/ GRAM | Timed | 09/29/2017 | | Results for this | | STAIN | | 8:00 AM | | procedure are in the | | | | PDT | | results section. | + +--------+ + + + | CBC W/AUTO DIFF | Routin | 09/29/2017 | | Results for this | | (REFLEX TO MANUAL) | e | 4:47 AM | | procedure are in the | | | | PDT | | results section. | + +--------+ + + + | PHOSPHOROUS | Routin | 09/29/2017 | | Results for this | | | e - AM | 4:47 AM | | procedure are in the | | | | PDT | | results section. | + +--------+ + + + | MAGNESIUM | Routin | 09/29/2017 | | Results for this | | | e - AM | 4:47 AM | | procedure are in the | | | | PDT | | results section. | + +--------+ + + + | COMPREHENSIVE | Routin | 09/29/2017 | | Results for this | | METABOLIC PANEL | e | 4:47 AM | | procedure are in the | | | | PDT | | results section. | + +--------+ + + + | CTA CHEST PULMONARY | STAT | 09/28/2017 | | Results for this | | EMBOLISM W CONTRAST | | 11:44 PM | | procedure are in the | | | | PDT | | results section. | + +--------+ + + + | POC ARTERIAL BLOOD | Routin | 09/28/2017 | | Results for this | | GAS | e | 11:11 PM | | procedure are in the | | | | PDT | | results section. | + +--------+ + + + | RESPIRATORY | Timed | 09/28/2017 | | Results for this | | FILMARRAY | | 10:34 PM | | procedure are in the | | | | PDT | | results section. | + +--------+ + + + | US LOWER EXTREMITY | STAT | 09/28/2017 | | Results for this | | VENOUS DOPPLER BILAT | | 9:50 PM | | procedure are in the | | | | PDT | | results section. | + +--------+ + + + | RICHARDSON MADRIGAL LACTIC | STAT | 09/28/2017 | | Results for this | | ACID | | 8:09 PM | | procedure are in the | | | | PDT | | results section. | + +--------+ + + + | PROCALCITONIN | Timed | 09/28/2017 | | Results for this | | | | 8:09 PM | | procedure are in the | | | | PDT | | results section. | + +--------+ + + + | CK MB | STAT | 09/28/2017 | | Results for this | | | | 8:09 PM | | procedure are in the | | | | PDT | | results section. | + +--------+ + + + | TROPONIN I | STAT | 09/28/2017 | | Results for this | | | | 8:09 PM | | procedure are in the | | | | PDT | | results section. | + +--------+ + + + | APTT | STAT | 09/28/2017 | | Results for this | | | | 8:09 PM | | procedure are in the | | | | PDT | | results section. | + +--------+ + + + | PROTIME-INR | STAT | 09/28/2017 | | Results for this | | | | 8:09 PM | | procedure are in the | | | | PDT | | results section. | + +--------+ + + + | D-DIMER, | STAT | 09/28/2017 | | Results for this | | QUANTITATIVE | | 8:09 PM | | procedure are in the | | | | PDT | | results section. | + +--------+ + + + | CK | STAT | 09/28/2017 | | Results for this | | | | 8:09 PM | | procedure are in the | | | | PDT | | results section. | + +--------+ + + + | COMPREHENSIVE | STAT | 09/28/2017 | | Results for this | | METABOLIC PANEL | | 8:09 PM | | procedure are in the | | | | PDT | | results section. | + +--------+ + + + | POC ARTERIAL BLOOD | Routin | 09/28/2017 | | Results for this | | GAS | e | 7:41 PM | | procedure are in the | | | | PDT | | results section. | + +--------+ + + + | ABG DRAW | STAT | 09/28/2017 | | | | | | 7:19 PM | | | | | | PDT | | | + +--------+ + + + | XR CHEST 2 VIEW | MICHELE | 09/28/2017 | | Results for this | | FRONTAL AND LATERAL | | 7:04 PM | | procedure are in the | | | | PDT | | results section. | + +--------+ + + + | APTT | STAT | 09/28/2017 | | Results for this | | | | 6:00 PM | | procedure are in the | | | | PDT | | results section. | + +--------+ + + + | PROTIME-INR | STAT | 09/28/2017 | | Results for this | | | | 6:00 PM | | procedure are in the | | | | PDT | | results section. | + +--------+ + + + | [facility] CARD PANEL W/O | STAT | 09/28/2017 | | Results for this | | TRP (ED ONLY) | | 5:40 PM | | procedure are in the | | | | PDT | | results section. | + +--------+ + + + | BRAIN NATRIURETIC | STAT | 09/28/2017 | | Results for this | | PEPTIDE | | 5:40 PM | | procedure are in the | | | | PDT | | results section. | + +--------+ + + + | EKG 12 LEAD UNIT | STAT | 09/28/2017 | | Results for this | | PERFORMED | | 5:31 PM | | procedure are in the | | | | PDT | | results section. | + +--------+ + + + | NEBULIZER/INHALATION | STAT | 09/28/2017 | | | | TREATMENT | | 5:22 PM | | | | | | PDT | | | + +--------+ + + + | ED INFORMATION | Routin | 09/28/2017 | | Results for this | | EXCHANGE | e | 3:51 PM | | procedure are in the | | | | PDT | | results section. | + +--------+ + + + in this encounter Results PROCALCITONIN (10/01/2017 4:25 AM) + + + + + | Component | Value | Ref Range | Performed At | + + + + + | PROCALCITONIN | 0.15Comment: | <0.5 ng/mL | [facility] | | | INTERPRETIVE | | | | | INFORMATION: PROCALCI | | | | | TONIN PCT <= 0.5 | | | | | ng/mL: Low risk | | | | | for progression to | | | | | severe | | | | | systemic bacteria | | | | | l infection (severe | | | | | sepsis/septic | | | | | shock). Does not | | | | | exclude an infection, | | | | | because | | | | | localized infecti | | | | | ons may be associated | | | | | with such low | | | | | levels. If PCT is | | | | | measured very early | | | | | after | | | | | bacterial challen | | | | | ge (usually <6 hours), | | | | | results may still | | | | | be low and should | | | | | re-assess PCT 6-24 | | | | | hours later. PCT >0.5 | | | | | and <= 2 | | | | | ng/mL: Moderate | | | | | risk for progression to | | | | | severe | | | | | systemic infectio | | | | | n (severe sepsis/septic | | | | | shock). Other | | | | | conditions are known to | | | | | elevate PCT, patient | | | | | should be | | | | | closely monitored both | | | | | clinically and | | | | | by re-assessing | | | | | PCT within 6-24 hours. | | | | | PCT > 2 | | | | | ng/mL: High | | | | | likelihood for | | | | | progression to severe | | | | | systemic bacteria | | | | | l infection (severe | | | | | sepsis/septic shock). | | | | | PCT >= 10 | | | | | ng/mL: High | | | | | likelihood of severe | | | | | sepsis or septic | | | | | shock.Testing performed | | | | | at [facility];[address] [place] [address] | | | | | [facility];[place] [address] | | | + + + + + + + + + + | Performing | Address | City/State/Zipcode | Phone Number | | Organization | | | | + + + + + | [facility] | [address] | [place] [address] | | + + + + + Basic metabolic panel (10/01/2017 4:25 AM) + + + + + | Component | Value | Ref Range | Performed At | + + + + + | SODIUM | 144 | 135 - 145 mmol/L | [facility] | | | | | LABORATORY | + + + + + | POTASSIUM | 3.4 (L) | 3.5 - 4.9 mmol/L | [facility] | | | | | LABORATORY | + + + + + | CHLORIDE | 107 | 99 - 109 mmol/L | [facility] | | | | | LABORATORY | + + + + + | CO2 | 26 | 23 - 32 mmol/L | [facility] | | | | | LABORATORY | + + + + + | ANION GAP AGAP | 14 | 5 - 20 mmol/L | [facility] | | | | | LABORATORY | + + + + + | GLUCOSE | 106 (H) | 65 - 99 mg/dL | [facility] | | | | | LABORATORY | + + + + + | BUN | 17 | 8 - 25 mg/dL | [facility] | | | | | LABORATORY | + + + + + | CREATININE | 0.8 | 0.70 - 1.30 mg/dL | [facility] | | | | | LABORATORY | + + + + + | BUN/CREAT | 21 | | [facility] | | | | | LABORATORY | + + + + + | CALCIUM | 8.8 | 8.5 - 10.5 mg/dL | [facility] | | | | | LABORATORY | + + + + + | EGFR | >60Comment: GFR <60: | >60 mL/min/1.73m2 | [facility] | | | CHRONIC KIDNEY DISEASE, | | LABORATORY | | | IF FOUND OVER A 3 MONTH | | | | | PERIOD.GFR <15: KIDNEY | | | | | FAILURE.FOR | | | | | AMERICANS, MULTIPLY THE | | | | | CALCULATED GFR BY | | | | | 1.210.This eGFR is | | | | | calculated using the | | | | | MDRD IDMS traceable | | | | | equation.Testing | | | | | performed at [facility], [address] | | | | | [facility], | | | | | [place] [address] | | | + + + + + + + | Specimen | + + | Blood | + + + + + + + | Performing | Address | City/State/Zipcode | Phone Number | | Organization | | | | + + + + + | [facility] | [address] [place] [address] | [place] [address] | [phone] | | LABORATORY | [place]. | | | + + + + + CBC W/Auto Diff (Reflex to Manual) (10/01/2017 4:25 AM) + + + + + | Component | Value | Ref Range | Performed At | + + + + + | WBC | 11.28 (H) | 3.80 - 11.00 K/uL | [facility] | | | | | LABORATORY | + + + + + | RBC | 4.04 (L) | 4.20 - 5.70 M/uL | [facility] | | | | | LABORATORY | + + + + + | HGB | 13.1 (L) | 13.2 - 17.0 g/dL | [facility] | | | | | LABORATORY | + + + + + | HCT | 38.8 (L) | 39.0 - 50.0 % | [facility] | | | | | LABORATORY | + + + + + | MCV | 96.1 | 80.0 - 100.0 fl | [facility] | | | | | LABORATORY | + + + + + | MCH | 32.3 | 27.0 - 34.0 pg | [facility] | | | | | LABORATORY | + + + + + | MCHC | 33.6 | 32.0 - 35.5 g/dL | [facility] | | | | | LABORATORY | + + + + + | RDW SD | 48.6 | 37 - 53 fl | [facility] | | | | | LABORATORY | + + + + + | PLT | 196 | 150 - 400 K/uL | [facility] | | | | | LABORATORY | + + + + + | MPV | 9.9 | fl | [facility] | | | | | LABORATORY | + + + + + | DIFF TYPE | AUTOMATED | | [facility] | | | | | LABORATORY | + + + + + | NEUTROPHILS | 77.94 | % | [facility] | | | | | LABORATORY | + + + + + | LYMPHOCYTES | 13.46 | % | [facility] | | | | | LABORATORY | + + + + + | MONOCYTES | 7.79 | % | [facility] | | | | | LABORATORY | + + + + + | EOSINOPHILS | 0.36 | % | [facility] | | | | | LABORATORY | + + + + + | BASOPHILS | 0.45 | % | [facility] | | | | | LABORATORY | + + + + + | NEUTROPHILS ABS | 8.79 (H) | 1.90 - 7.40 K/uL | [facility] | | | | | LABORATORY | + + + + + | LYMPHOCYTES ABS | 1.52 | 1.00 - 3.90 K/uL | [facility] | | | | | LABORATORY | + + + + + | MONOCYTES ABS | 0.88 (H) | 0.00 - 0.80 K/uL | [facility] | | | | | LABORATORY | + + + + + | EOSINOPHILS ABS | 0.04 | 0.00 - 0.50 K/uL | [facility] | | | | | LABORATORY | + + + + + | BASOPHILS ABS | 0.05Comment: Testing | 0.00 - 0.10 K/uL | [facility] | | | performed at [facility], [address] | | LABORATORY | | | [address], | | | | | [place] [address] | | | + + + + + + + | Specimen | + + | Blood | + + + + + + + | Performing | Address | City/State/Zipcode | Phone Number | | Organization | | | | + + + + + | [facility] | [address] [facility] | [place] [address] | [phone] | | LABORATORY | [address] | | | + + + + + Comprehensive Metabolic Panel (09/30/2017 4:20 AM) + + + + + | Component | Value | Ref Range | Performed At | + + + + + | SODIUM | 143 | 135 - 145 mmol/L | [facility] | | | | | LABORATORY | + + + + + | POTASSIUM | 3.5 | 3.5 - 4.9 mmol/L | [facility] | | | | | LABORATORY | + + + + + | CHLORIDE | 110 (H) | 99 - 109 mmol/L | [facility] | | | | | LABORATORY | + + + + + | CO2 | 25 | 23 - 32 mmol/L | [facility] | | | | | LABORATORY | + + + + + | ANION GAP AGAP | 12 | 5 - 20 mmol/L | [facility] | | | | | LABORATORY | + + + + + | GLUCOSE | 129 (H) | 65 - 99 mg/dL | [facility] | | | | | LABORATORY | + + + + + | BUN | 17 | 8 - 25 mg/dL | [facility] | | | | | LABORATORY | + + + + + | CREATININE | 0.8 | 0.70 - 1.30 mg/dL | [facility] | | | | | LABORATORY | + + + + + | BUN/CREAT | 21 | | [facility] | | | | | LABORATORY | + + + + + | CALCIUM | 8.5 | 8.5 - 10.5 mg/dL | [facility] | | | | | LABORATORY | + + + + + | TOTAL PROTEIN | 6.8 | 6.3 - 8.2 g/dL | [facility] | | | | | LABORATORY | + + + + + | Albumin | 2.8 (L) | 3.3 - 4.8 g/dL | [facility] | | | | | LABORATORY | + + + + + | GLOBULIN | 4.0 | 1.3 - 4.9 g/dL | [facility] | | | | | LABORATORY | + + + + + | A/G | 0.7 (L) | 1.0 - 2.4 | [facility] | | | | | LABORATORY | + + + + + | TBIL | 0.2 | 0.1 - 1.5 mg/dL | [facility] | | | | | LABORATORY | + + + + + | ALK PHOS | 76 | 35 - 115 U/L | [facility] | | | | | LABORATORY | + + + + + | AST | 20 | 10 - 45 U/L | [facility] | | | | | LABORATORY | + + + + + | ALT | 26 | 10 - 65 U/L | [facility] | | | | | LABORATORY | + + + + + | EGFR | >60Comment: GFR <60: | >60 mL/min/1.73m2 | [facility] | | | CHRONIC KIDNEY DISEASE, | | LABORATORY | | | IF FOUND OVER A 3 MONTH | | | | | PERIOD.GFR <15: KIDNEY | | | | | FAILURE.FOR | | | | | AMERICANS, MULTIPLY THE | | | | | CALCULATED GFR BY | | | | | 1.210.This eGFR is | | | | | calculated using the | | | | | MDRD IDMS traceable | | | | | equation.Testing | | | | | performed at [facility], [address] | | | | | [facility], | | | | | [place] [address] | | | + + + + + + + | Specimen | + + | Blood | + + + + + + + | Performing | Address | City/State/Zipcode | Phone Number | | Organization | | | | + + + + + | [facility] | [address] [place] [address] | [place] [address] | [phone] | | LABORATORY | [facility]. | | | + + + + + CBC W/Auto Diff (Reflex to Manual) (09/30/2017 4:20 AM) + + + + + | Component | Value | Ref Range | Performed At | + + + + + | WBC | 12.32 (H) | 3.80 - 11.00 K/uL | [facility] | | | | | LABORATORY | + + + + + | RBC | 4.04 (L) | 4.20 - 5.70 M/uL | [facility] | | | | | LABORATORY | + + + + + | HGB | 13.3 | 13.2 - 17.0 g/dL | [facility] | | | | | LAB[facility]ATORY | + + + + + | HCT | 39.2 | 39.0 - 50.0 % | [facility] | | | | | LABORATORY | + + + + + | MCV | 96.8 | 80.0 - 100.0 fl | [facility] | | | | | LAB[facility]AT[facility] | + + + + + | MCH | 32.8 | 27.0 - 34.0 pg | [facility] | | | | | [facility] | + + + + + | MCHC | 33.9 | 32.0 - 35.5 g/dL | [facility] | | | | | [facility] | + + + + + | RDW SD | 49.0 | 37 - 53 fl | [facility] | | | | | [facility] | + + + + + | PLT | 186 | 150 - 400 K/uL | [facility] | | | | | [facility] | + + + + + | MPV | 9.9 | fl | [facility] | | | | | LAB[facility] | + + + + + | DIFF TYPE | AUTOMATED | | [facility] | | | | | LAB[facility]AT[facility] | + + + + + | NEUTROPHILS | 80.24 | % | [facility] | | | | | LABORATORY | + + + + + | LYMPHOCYTES | 11.24 | % | [facility] | | | | | LAB[facility]AT[facility] | + + + + + | MONOCYTES | 7.82 | % | [facility] | | | | | LABORATORY | + + + + + | EOSINOPHILS | 0.39 | % | [facility] | | | | | LABORATORY | + + + + + | BASOPHILS | 0.31 | % | [facility] | | | | | LABORATORY | + + + + + | NEUTROPHILS ABS | 9.89 (H) | 1.90 - 7.40 K/uL | [facility] | | | | | LABORATORY | + + + + + | LYMPHOCYTES ABS | 1.38 | 1.00 - 3.90 K/uL | [facility] | | | | | LABORATORY | + + + + + | MONOCYTES ABS | 0.96 (H) | 0.00 - 0.80 K/uL | [facility] | | | | | LABORATORY | + + + + + | EOSINOPHILS ABS | 0.05 | 0.00 - 0.50 K/uL | [facility] | | | | | LABORATORY | + + + + + | BASOPHILS ABS | 0.04Comment: Testing | 0.00 - 0.10 K/uL | [facility] | | | performed at [facility], [address] | | LABORATORY | | | [address], | | | | | [place] [address] | | | + + + + + + + | Specimen | + + | Blood | + + + + + + + | Performing | Address | City/State/Zipcode | Phone Number | | Organization | | | | + + + + + | [facility] | [address] | [place] [address] | [phone] | | LABORATORY | [address] | | | + + + + + Sputum culture (09/29/2017 8:00 AM) + + + + + | Component | Value | Ref Range | Performed At | + + + + + | Specimen Description | SPUTUM | | [facility] | | | | | LABORATORY | + + + + + | GRAM STAIN | GREATER THAN 10 SEC/LPF | | [facility] | | | | | LABORATORY | + + + + + | GRAM STAIN | LESS THAN 10 WBCS/LPF | | [facility] | | | | | LABORATORY | + + + + + | GRAM STAIN | 3+ | | [facility] | | | | | LABORATORY | + + + + + | GRAM STAIN | GRAM POSITIVE COCCI | | [facility] | | | | | LABORATORY | + + + + + | CULTURE | SMEAR CONTAINS GREATER | | [facility] | | | THAN 10 SEC/LPF | | LABORATORY | | | SUGGESTIVE OF POOR | | | | | QUALITY SPECIMEN. | | | | | SPECIMEN WILL NOT BE | | | | | CULTURED OR WILL BE | | | | | CULTURED BY SPECIAL | | | | | REQUEST ONLY. PLEASE | | | | | RECOLLECT IF CLINICALLY | | | | | INDICATED. SPECIMEN | | | | | WILL BE HELD 48 HOURS. | | | + + + + + + + | Specimen | + + | Sputum - Sputum | + + + + + + + | Performing | Address | City/State/Zipcode | Phone Number | | Organization | | | | + + + + + | [facility] | [address] | [place] [address] | [phone] | | LABORATORY | [address] | | | + + + + + Comprehensive Metabolic Panel (09/29/2017 4:47 AM) + + + + + | Component | Value | Ref Range | Performed At | + + + + + | SODIUM | 143 | 135 - 145 mmol/L | [facility] | | | | | LABORATORY | + + + + + | POTASSIUM | 3.7 | 3.5 - 4.9 mmol/L | [facility] | | | | | LABORATORY | + + + + + | CHLORIDE | 108 | 99 - 109 mmol/L | [facility] | | | | | LABORATORY | + + + + + | CO2 | 28 | 23 - 32 mmol/L | [facility] | | | | | LABORATORY | + + + + + | ANION GAP AGAP | 11 | 5 - 20 mmol/L | [facility] | | | | | LABORATORY | + + + + + | GLUCOSE | 153 (H) | 65 - 99 mg/dL | [facility] | | | | | LABORATORY | + + + + + | BUN | 15 | 8 - 25 mg/dL | [facility] | | | | | LABORATORY | + + + + + | CREATININE | 0.9 | 0.70 - 1.30 mg/dL | [facility] | | | | | LABORATORY | + + + + + | BUN/CREAT | 17 | | [facility] | | | | | LABORATORY | + + + + + | CALCIUM | 8.5 | 8.5 - 10.5 mg/dL | [facility] | | | | | LABORATORY | + + + + + | TOTAL PROTEIN | 6.7 | 6.3 - 8.2 g/dL | [facility] | | | | | LABORATORY | + + + + + | Albumin | 3.1 (L) | 3.3 - 4.8 g/dL | [facility] | | | | | LABORATORY | + + + + + | GLOBULIN | 3.6 | 1.3 - 4.9 g/dL | [facility] | | | | | LABORATORY | + + + + + | A/G | 0.9 (L) | 1.0 - 2.4 | [facility] | | | | | LABORATORY | + + + + + | TBIL | 0.4 | 0.1 - 1.5 mg/dL | [facility] | | | | | LABORATORY | + + + + + | ALK PHOS | 69 | 35 - 115 U/L | [facility] | | | | | LABORATORY | + + + + + | AST | 14 | 10 - 45 U/L | [facility] | | | | | LABORATORY | + + + + + | ALT | 23 | 10 - 65 U/L | [facility] | | | | | LABORATORY | + + + + + | EGFR | >60Comment: GFR <60: | >60 mL/min/1.73m2 | [facility] | | | CHRONIC KIDNEY DISEASE, | | LABORATORY | | | IF FOUND OVER A 3 MONTH | | | | | PERIOD.GFR <15: KIDNEY | | | | | FAILURE.FOR | | | | | AMERICANS, MULTIPLY THE | | | | | CALCULATED GFR BY | | | | | 1.210.This eGFR is | | | | | calculated using the | | | | | MDRD IDMS traceable | | | | | equation.Testing | | | | | performed at [facility], [address] | | | | [facility], | | | | | [place] [address] | | | + + + + + + + | Specimen | + + | Blood | + + + + + + + | Performing | Address | City/State/Zipcode | Phone Number | | Organization | | | | + + + + + | [facility] | [address] | [place] [address] | [phone] | | LABORATORY | [address] | | | + + + + + CBC W/Auto Diff (Reflex to Manual) (09/29/2017 4:47 AM) + + + + + | Component | Value | Ref Range | Performed At | + + + + + | WBC | 10.93 | 3.80 - 11.00 K/uL | [facility] | | | | | LABORATORY | + + + + + | RBC | 3.96 (L) | 4.20 - 5.70 M/uL | [facility] | | | | | LABORATORY | + + + + + | HGB | 13.0 (L) | 13.2 - 17.0 g/dL | [facility] | | | | | LABORATORY | + + + + + | HCT | 37.9 (L) | 39.0 - 50.0 % | [facility] | | | | | LABORATORY | + + + + + | MCV | 95.6 | 80.0 - 100.0 fl | [facility] | | | | | LABORATORY | + + + + + | MCH | 32.8 | 27.0 - 34.0 pg | [facility] | | | | | LABORATORY | + + + + + | MCHC | 34.4 | 32.0 - 35.5 g/dL | [facility] | | | | | LABORATORY | + + + + + | RDW SD | 49.0 | 37 - 53 fl | [facility] | | | | | LABORATORY | + + + + + | PLT | 180 | 150 - 400 K/uL | [facility] | | | | | LABORATORY | + + + + + | MPV | 10.1 | fl | [facility] | | | | | LABORATORY | + + + + + | DIFF TYPE | MANUAL | | [facility] | | | | | LABORATORY | + + + + + | Neutrophils Manual | 91 | % | [facility] | | | | | LABORATORY | + + + + + | Bands | 1 | % | [facility] | | | | | LABORATORY | + + + + + | Lymphocytes Manual | 8 | % | [facility] | | | | | LABORATORY | + + + + + | Neutrophils Absolute | 9.95 (H) | 1.90 - 7.40 K/uL | [facility] | | | | | LABORATORY | + + + + + | Bands Manual | 0.11 | 0.00 - 0.20 K/uL | [facility] | | | | | LABORATORY | + + + + + | Lymphocytes Absolute | 0.87 (L) | 1.00 - 3.90 K/uL | [facility] | | | | | LABORATORY | + + + + + | MORPHOLOGY | RBC AND PLT MORPHOLOGY | | [facility] | | | APPEAR NORMALComment: | | LABORATORY | | | Testing performed at | | | | | [facility], [address] | | | | | [facility], [place] | | | | | [address] | | | + + + + + + + | Specimen | + + | Blood | + + + + + + + | Performing | Address | City/State/Zipcode | Phone Number | | Organization | | | | + + + + + | [facility] | [address] | [place] [address] | [phone] | | LABORATORY | [address] | | | + + + + + Phosphorus (09/29/2017 4:47 AM) + + + + + | Component | Value | Ref Range | Performed At | + + + + + | PHOSPHORUS | 2.1 (L)Comment: Testing | 2.3 - 4.8 mg/dL | [facility] | | | performed at [facility], [address] | | LABORATORY | | | [facility], | | | | | [place] [address] | | | + + + + + + + | Specimen | + + | Blood | + + + + + + + | Performing | Address | City/State/Zipcode | Phone Number | | Organization | | | | + + + + + | [facility] | [address] | [place] [address] | [phone] | | LABORATORY | [address] | | | + + + + + Magnesium (09/29/2017 4:47 AM) + + + + + | Component | Value | Ref Range | Performed At | + + + + + | MAGNESIUM | 2.3Comment: Testing | 1.7 - 2.4 mg/dL | [facility] | | | performed at [facility], [address] | | LABORATORY | | | [facility] [address], | | | | | [place] [address] | | | + + + + + + + | Specimen | + + | Blood | + + + + + + + | Performing | Address | City/State/Zipcode | Phone Number | | Organization | | | | + + + + + | [facility] | [address] | [place] [address] | [phone] | | LABORATORY | [address] | | | + + + + + CTA Chest Pulmonary Embolism w IV con (09/28/2017 11:44 PM) + + + | Impressions | Performed At | + + + | 1. Some images are degraded due to motion artifact. No obvious | [facility] | | pulmonary emboli. 2. Emphysema with pulmonary vascular congestion | [facility] | | and bilateral infiltrate or atelectasis, right greater than left. 3. | | | Dilated ascending aorta measuring 4.4 cm. No aortic dissection. 4. | | | Marked tracheomalacia. [facility] Electronically signed by Len | | | MD Blake on Sep 29 2017 12:56AM Referring Provider Line: | | | [phone] ID: [id number] | | + + + + + + | Narrative | Performed At | + + + | EXAM: CT ANGIOGRAM CHEST EXAM DATE: 09/28/2017 11:45 PM. | [facility] | | CLINICAL HISTORY: Hypoxemia. Dyspnea. COPD. COMPARISON: | RAD[facility] | | 06/09/2017. TECHNIQUE: Routine helical imaging was performed | | | through the chest in the pulmonary arterial phase. IV Contrast: | | | Nonionic. Reconstructions: Coronal 3-D MIP reconstructions.Sagittal | | | and coronal. In accordance with CT protocol optimization, one or | | | more of the following dose reduction techniques were utilized for this | | | exam: automated exposure control, adjustment of mA and/or KV based on | | | patient size, or use of iterative reconstructive technique. | | | FINDINGS: Pulmonary Arteries: Diagnostic quality: Suboptimal | | | through the segmental arteries. Pulmonary arteries are well enhanced | | | but some images are degraded due to motion artifact. No obvious | | | pulmonary emboli. No evidence of right heart strain. | | | Lungs/Pleura: Emphysema. Pulmonary vascular congestion. Bilateral | | | infiltrate or atelectasis, right greater than left. No pleural | | | effusion seen. No pneumothorax. Mediastinum: Heart size normal to | | | upper normal. No lymphadenopathy seen. Marked tracheomalacia. | | | Thoracic Aorta: Ascending aorta measures 4.4 cm. Mild atherosclerosis. | | | No aortic dissection. Upper Abdomen: Possible fatty liver. | | | Other: None. | | + + + + + | Procedure Note | + + | Chapito, Rad Results In - 09/29/2017 12:56 AM PDT EXAM:CT ANGIOGRAM CHESTEXAM DATE: | | 09/28/2017 11:45 PM.CLINICAL HISTORY: Hypoxemia. Dyspnea. COPD.COMPARISON: | | 06/09/2017.TECHNIQUE: Routine helical imaging was performed through the chest in the | | pulmonary arterial phase. IV Contrast: Nonionic. Reconstructions: Coronal 3-D MIP | | reconstructions.Sagittal and coronal.In accordance with CT protocol optimization, one or | | more of the following dose reduction techniques were utilized for this exam: automated | | exposure control, adjustment of mA and/or KV based on patient size, or use of iterative | | reconstructive technique.FINDINGS: Pulmonary Arteries: Diagnostic quality: Suboptimal | | through the segmental arteries. Pulmonary arteries are well enhanced but some images are | | degraded due to motion artifact. No obvious pulmonary emboli. No evidence of right | | heart strain.Lungs/Pleura: Emphysema. Pulmonary vascular congestion. Bilateral | | infiltrate or atelectasis, right greater than left. No pleural effusion seen. No | | pneumothorax.Mediastinum: Heart size normal to upper normal. No lymphadenopathy seen. | | Marked tracheomalacia. Thoracic Aorta: Ascending aorta measures 4.4 cm. Mild | | atherosclerosis. No aortic dissection.Upper Abdomen: Possible fatty liver.Other: | | None.IMPRESSION:1. Some images are degraded due to motion artifact. No obvious pulmonary | | emboli. 2. Emphysema with pulmonary vascular congestion and bilateral infiltrate or | | atelectasis, right greater than left. 3. Dilated ascending aorta measuring 4.4 cm. No | | aortic dissection. 4. Marked tracheomalacia.RADIA Electronically signed by Len Lozano | | on Sep 29 2017 12:56AM Referring Provider Line: [phone] ID: [id number] | | | |Mediastinum: Heart size normal to upper normal. No lymphadenopathy seen. Marked tracheomala zuleima. | | | |Thoracic Aorta: Ascending aorta measures 4.4 cm. Mild atherosclerosis. No aortic dissection . | | | |Upper Abdomen: Possible fatty liver. | | | |Other: None. | | | |IMPRESSION: | | | |1. Some images are degraded due to motion artifact. No obvious pulmonary emboli. | |2. Emphysema with pulmonary vascular congestion and bilateral infiltrate or atelectasis, ri ght greater than left. | |3. Dilated ascending aorta measuring 4.4 cm. No aortic dissection. | |4. Marked tracheomalacia. | | | |[facility] | | | | Electronically signed by Len Lozano MD on Sep 29 2017 12:56AM Referring Provider Line: [phone] ID: [id number] | + + + + + + + | Performing | Address | City/State/Zipcode | Phone Number | | Organization | | | | + + + + + | [facility] | [address] | [place] [address] | | + + + + + POC Arterial Blood Gas (09/28/2017 11:11 PM) + + + + + | Component | Value | Ref Range | Performed At | + + + + + | pH, Art | 7.341 (L) | 7.350 - 7.450 | [facility] | + + + + + | POC PCO2 | 42 | 35 - 45 mmHg | [facility] | + + + + + | POC p02 | 93 | 80 - 105 mmHg | [facility] | + + + + + | POC HCO3 | 23 | 22 - 26 mmol/L | [facility] | + + + + + | POC TCO2 | 24 | 23 - 27 mEq/L | [facility] | + + + + + | POC BASE DEFICIT | 3 (H) | 0.0 - 2.0 mmol/L | [facility] | + + + + + | POC S02 | 97 | 95 - 98 % | [facility] | + + + + + | POC COMMENTS | Christian Test not | | [facility] | | | indicatedComment: Site = | | | | | right radialTesting | | | | | performed at [facility] | | | | | [address];[place], [place] | | | | | [address] | | | + + + + + + + + + + | Performing | Address | City/State/Zipcode | Phone Number | | Organization | | | | + + + + + | [facility] | [address] | [place] [address] | | + + + + + Respiratory Filmarray (09/28/2017 10:34 PM) + + + + + | Component | Value | Ref Range | Performed At | + + + + + | ADENOVIRUS | Not Detected | Not Detected | [facility] | | | | | LABORATORY | + + + + + | CORONAVIRUS 229E | Not Detected | Not Detected | [facility] | | | | | LABORATORY | + + + + + | CORONAVIRUS HKU1 | Not Detected | Not Detected | [facility] | | | | | LABORATORY | + + + + + | CORONAVIRUS NL63 | Not Detected | Not Detected | [facility] | | | | | LABORATORY | + + + + + | CORONAVIRUS OC43 | Not Detected | Not Detected | [facility] | | | | | LABORATORY | + + + + + | HUMAN | Not Detected | Not Detected | [facility] | | METAPNEUMOVIRUS | | | LABORATORY | + + + + + | HUMAN RHINO/ENTERO | Not Detected | Not Detected | [facility] | | | | | LABORATORY | + + + + + | INFLUENZA A | Not Detected | Not Detected | [facility] | | | | | LABORATORY | + + + + + | INFLUENZA B | Not Detected | Not Detected | [facility] | | | | | LABORATORY | + + + + + | PARAINFLUENZA 1 | Not Detected | Not Detected | [facility] | | | | | LABORATORY | + + + + + | PARAINFLUENZA 2 | Not Detected | Not Detected | [facility] | | | | | LABORATORY | + + + + + | PARAINFLUENZA 3 | Not Detected | Not Detected | [facility] | | | | | LABORATORY | + + + + + | PARAINFLUENZA 4 | Not Detected | Not Detected | [facility] | | | | | LABORATORY | + + + + + | RESP SYNCYTIAL VIRUS | Not Detected | Not Detected | [facility] | | | | | LABORATORY | + + + + + | BORDETELLA PERTUSSIS | Not Detected | Not Detected | [facility] | | | | | LABORATORY | + + + + + | CHLAMYDIAE | Not Detected | Not Detected | [facility] | | PNEUMONIAE | | | LABORATORY | + + + + + | MYCOPLASMA | Not Detected | Not Detected | [facility] | | PNEUMONIAE | | | LABORATORY | + + + + + | RESP PANEL INTERP | Testing performed by | | [facility] | | | Molecular | | LABORATORY | | | MethodologyComment: | | | | | Testing performed at | | | | | [facility], [address] [place] [address] | | | | | [place] | | | | | [address] | | | + + + + + + + | Specimen | + + | Nasopharyngeal | | Culture | + + + + + + + | Performing | Address | City/State/Zipcode | Phone Number | | Organization | | | | + + + + + | [facility] | [address] | [place] [address] | [phone] | | LABORATORY | [address] | | | + + + + + US Lower extremity venous doppler bilateral (09/28/2017 9:50 PM) + + + | Impressions | Performed At | + + + | 1. No evidence of lower extremity deep vein thrombosis. | [facility] | | | RAD[facility]OLOGY | + + + + + + | Narrative | Performed At | + + + | CHEKO HOWELL LOWER EXTREMITY VENOUS DOPPLER BILAT | MARI | | 09/28/2017 9:16 PM HISTORY: 67 years. Male. Swelling of the | RADIOLOGY | | left and right lower extremities. TECHNIQUE: Bilateral lower | | | extremity venous exam using grayscale, color Doppler and pulsed wave | | | spectral Doppler techniques. COMPARISON: None. FINDINGS: | | | Normal compressibility, augmentation of flow, and Doppler flow evident | | | within the deep venous system. No evidence of deep venous thrombosis. | | | | | + + + + + | Procedure Note | + + | Chapito, Chad Results In - 09/28/2017 9:53 PM PDT CHEKO DIAZ LOWER EXTREMITY | | VENOUS DOPPLER BILAT09/28/2017 9:16 PMHISTORY:67 years. Male. Swelling of the left and | | right lower extremities.TECHNIQUE:Bilateral lower extremity venous exam using grayscale, | | color Doppler and pulsed wave spectral Doppler | | techniques.COMPARISON:None.FINDINGS:Normal compressibility, augmentation of flow, and | | Doppler flow evident within the deep venous system. No evidence of deep venous | | thrombosis.IMPRESSION:1. No evidence of lower extremity deep vein | | thrombosis. | |Bilateral lower extremity venous exam using grayscale, color Doppler and pulsed wave spectr al Doppler techniques. | | | |COMPARISON: | |None. | | | |FINDINGS: | |Normal compressibility, augmentation of flow, and Doppler flow evident within the deep veno us system. No evidence of deep venous thrombosis. | | | |IMPRESSION: | |1. No evidence of lower extremity deep vein thrombosis. | | | | | + + + + + + + | Performing | Address | City/State/Zipcode | Phone Number | | Organization | | | | + + + + + | [facility] | [address] | [place] [address] | | + + + + + aPTT (09/28/2017 8:09 PM) + + + + + | Component | Value | Ref Range | Performed At | + + + + + | APTT | 31Comment: Testing | 23 - 32 seconds | [facility] | | | performed at [facility];[address];[place] | | | | | [address] | | | + + + + + + + + + + | Performing | Address | City/State/Zipcode | Phone Number | | Organization | | | | + + + + + | [facility] | [address] | [place] [address] | | + + + + + Protime-INR (09/28/2017 8:09 PM) + + + + + | Component | Value | Ref Range | Performed At | + + + + + | INR | 1.1Comment: REFERENCE | | [facility] | | | RANGE:0.9 - | | | | | 1.2 NON-ANTICOAGULATE | | | | | D2.0 - 3.0 ALL OTHER | | | | | THERAPEUTIC | | | | | INDICATIONS2.5 - 3.5 | | | | | MECHANICAL HEART VALVES, | | | | | RECURRENT OR SYSTEMIC | | | | | EMBOLISMTesting | | | | | performed at [facility];[address];[place] | | | | | [address] | | | + + + + + + + + + + | Performing | Address | City/State/Zipcode | Phone Number | | Organization | | | | + + + + + | [facility] | [address] | [place] [address] | | + + + + + Septic Lactic Acid (09/28/2017 8:09 PM) + + + + + | Component | Value | Ref Range | Performed At | + + + + + | LACTIC ACID | 1.0Comment: Testing | 0.4 - 2.0 mmol/L | [facility] | | | performed at [facility];[address] | | | [address];[place] | | | | | [address] | | | + + + + + + + + + + | Performing | Address | City/State/Zipcode | Phone Number | | Organization | | | | + + + + + | [facility] | [address] | [place] [address] | | + + + + + D dimer,quant (09/28/2017 8:09 PM) + + + + + | Component | Value | Ref Range | Performed At | + + + + + | D DIMER, | 0.59 (H)Comment: D Dimer | 0.19 - 0.50 mg/L FEU | [facility] | | QUANTITATIVE | results less than 0.50 | | | | | mg/L FEU may rule out | | | | | DVT and PE. However, | | | | | all laboratory results | | | | | should be interpreted in | | | | | the context of all | | | | | available clinical, | | | | | radiologic and | | | | | laboratory | | | | | information.Testing | | | | | performed at [facility];[address] | | | | | [facility];[place], [place] | | | | | [address] | | | + + + + + + + | Specimen | + + | Blood | + + + + + + + | Performing | Address | City/State/Zipcode | Phone Number | | Organization | | | | + + + + + | [facility] | [address] | [place] [address] | | + + + + + PROCALCITONIN (09/28/2017 8:09 PM) + + + + + | Component | Value | Ref Range | Performed At | + + + + + | PROCALCITONIN | 0.93 (H)Comment: | <0.5 ng/mL | [facility] | | | INTERPRETIVE | | | | | INFORMATION: PROCALCI | | | | | TONIN PCT <= 0.5 | | | | | ng/mL: Low risk | | | | | for progression to | | | | | severe | | | | | systemic bacteria | | | | | l infection (severe | | | | | sepsis/septic | | | | | shock). Does not | | | | | exclude an infection, | | | | | because | | | | | localized infecti | | | | | ons may be associated | | | | | with such low | | | | | levels. If PCT is | | | | | measured very early | | | | | after | | | | | bacterial challen | | | | | ge (usually <6 hours), | | | | | results may still | | | | | be low and should | | | | | re-assess PCT 6-24 | | | | | hours later. PCT >0.5 | | | | | and <= 2 | | | | | ng/mL: Moderate | | | | | risk for progression to | | | | | severe | | | | | systemic infectio | | | | | n (severe sepsis/septic | | | | | shock). Other | | | | | conditions are known to | | | | | elevate PCT, patient | | | | | should be | | | | | closely monitored both | | | | | clinically and | | | | | by re-assessing | | | | | PCT within 6-24 hours. | | | | | PCT > 2 | | | | | ng/mL: High | | | | | likelihood for | | | | | progression to severe | | | | | systemic bacteria | | | | | l infection (severe | | | | | sepsis/septic shock). | | | | | PCT >= 10 | | | | | ng/mL: High | | | | | likelihood of severe | | | | | sepsis or septic | | | | | shock.Testing performed | | | | | at [facility];[address];[place] [address] | | | + + + + + + + + + + | Performing | Address | City/State/Zipcode | Phone Number | | Organization | | | | + + + + + | [facility] | [address] | [place] [address] | | + + + + + Comprehensive metabolic panel (09/28/2017 8:09 PM) + + + + + | Component | Value | Ref Range | Performed At | + + + + + | SODIUM | 140 | 135 - 145 mmol/L | [facility] | + + + + + | POTASSIUM | 3.7 | 3.5 - 4.9 mmol/L | [facility] | + + + + + | CHLORIDE | 107 | 99 - 109 mmol/L | [facility] | + + + + + | CO2 | 26 | 23 - 32 mmol/L | [facility] | + + + + + | ANION GAP AGAP | 10 | 5 - 20 mmol/L | [facility] | + + + + + | GLUCOSE | 145 (H) | 65 - 99 mg/dL | [facility] | + + + + + | BUN | 14 | 8 - 25 mg/dL | [facility] | + + + + + | CREATININE | 0.86 | 0.70 - 1.30 mg/dL | [facility] | + + + + + | BUN/CREAT | 16 | | [facility] | + + + + + | CALCIUM | 8.8 | 8.5 - 10.5 mg/dL | [facility] | + + + + + | TOTAL PROTEIN | 7.3 | 6.3 - 8.2 g/dL | [facility] | + + + + + | Albumin | 3.4 | 3.3 - 4.8 g/dL | [facility] | + + + + + | GLOBULIN | 3.8 | 1.3 - 4.9 g/dL | [facility] | + + + + + | A/G | 0.9 (L) | 1.0 - 2.4 | [facility] | + + + + + | TBIL | 0.4 | 0.1 - 1.5 mg/dL | [facility] | + + + + + | ALK PHOS | 78 | 35 - 115 U/L | [facility] | + + + + + | AST | 15 | 10 - 45 U/L | [facility] | + + + + + | ALT | 27 | 10 - 65 U/L | [facility] | + + + + + | EGFR | >60Comment: GFR <60: | >60 mL/min/1.73m2 | [facility] | | | CHRONIC KIDNEY DISEASE, | | | | | IF FOUND OVER A 3 MONTH | | | | | PERIOD.GFR <15: KIDNEY | | | | | FAILURE.FOR | | | | | AMERICANS, MULTIPLY THE | | | | | CALCULATED GFR BY | | | | | 1.210.This eGFR is | | | | | calculated using the | | | | | MDRD IDMS traceable | | | | | equation.Testing | | | | | performed at [facility] | | | | | [facility];[place] | | | | | [address] | | | + + + + + + + + + + | Performing | Address | City/State/Zipcode | Phone Number | | Organization | | | | + + + + + | [facility] | [address] | [place] [address] | | + + + + + Troponin I (09/28/2017 8:09 PM) + + + + + | Component | Value | Ref Range | Performed At | + + + + + | TROPONIN I | <0.020Comment: 0.00 to | 0.00 - 0.10 ng/mL | [facility] | | | 0.10 CONSISTENT | | | | | WITH NORMAL | | | | | POPULATION0.11 to | | | | | 0.60 CONSISTENT WITH | | | | | INCREASED RISK FOR | | | | | ADVERSE OUTCOMES> | | | | | 0.60 | | | | | CONSISTENT WITH WHO | | | | | CRITERIA FOR ACUTE MD | | | | | Testing performed at | | | | | [facility];[address] [facility] | | | | | [facility];[place] [address] | | | + + + + + + + + + + | Performing | Address | City/State/Zipcode | Phone Number | | Organization | | | | + + + + + | [facility] | [address] | [place] [address] | | + + + + + CK MB (09/28/2017 8:09 PM) + + + + + | Component | Value | Ref Range | Performed At | + + + + + | MMB | <1.0 | 0.5 - 3.6 ng/mL | [facility] | + + + + + | CK-MB Index | UNABLE TO | | [facility] | | | CALCULATEComment: | | | | | Testing performed at | | | | | [facility] | | | | | [place] [address] | | | + + + + + + + + + + | Performing | Address | City/State/Zipcode | Phone Number | | Organization | | | | + + + + + | [facility] | [address] | [place] [address] | | + + + + + CPK (09/28/2017 8:09 PM) + + + + + | Component | Value | Ref Range | Performed At | + + + + + | CPK | 51 (L)Comment: Testing | 55 - 400 U/L | [facility] | | | performed at [facility];[address] | | | | | [address];[place] | | | | | [address] | | | + + + + + + + + + + | Performing | Address | City/State/Zipcode | Phone Number | | Organization | | | | + + + + + | [facility] | [address] | [place] [address] | | + + + + + POC Arterial Blood Gas (09/28/2017 7:41 PM) + + + + + | Component | Value | Ref Range | Performed At | + + + + + | POC FIO2 | 28 | % | [facility] | + + + + + | pH, Art | 7.402 | 7.350 - 7.450 | [facility] | + + + + + | POC PCO2 | 40 | 35 - 45 mmHg | [facility] | + + + + + | POC p02 | 66 (L) | 80 - 105 mmHg | [facility] | + + + + + | POC HCO3 | 25 | 22 - 26 mmol/L | [facility] | + + + + + | POC TCO2 | 26 | 23 - 27 mEq/L | [facility] | + + + + + | POC BASE EXCESS | 0 | 0 - 3 mEq/L | [facility] | + + + + + | POC S02 | 93 (L)Comment: Testing | 95 - 98 % | [facility] | | | performed at [facility];[address] | | | | | [address];[place] | | | | | [address] | | | + + + + + + + + + + | Performing | Address | City/State/Zipcode | Phone Number | | Organization | | | | + + + + + | [facility] | [address] | [place] [address] | | + + + + + XR chest PA and lateral (09/28/2017 7:04 PM) + + + | Impressions | Performed At | + + + | Bilateral pulmonary vascular congestion. Bibasilar atelectasis. | [facility] | | | RADIOLOGY | + + + + + + | Narrative | Performed At | + + + | [facility]PUS CHRISTI 1950 67 years Male XR CHEST 2 VIEW | [facility] | | FRONTAL AND LATERAL 09/28/2017 7:04 PM INDICATION: Shortness of | RADIOLOGY | | breath COMPARISON: August 28, 2017 TECHNIQUE: Two view chest, PA | | | and lateral views FINDINGS: Bilateral pulmonary vascular | | | congestion. Bibasilar mild atelectasis. No pneumothorax. Upper | | | mediastinal contours and heart size are normal. No acute osseous | | | abnormality. | | + + + + + | Procedure Note | + + | Chapito, Rad Results In - 09/28/2017 7:15 PM PDT [facility] | | 1950 | | 67 years Male | | XR CHEST 2 VIEW FRONTAL AND LATERAL | | 09/28/2017 7:04 PM | | | | INDICATION: Shortness of breath | | | | COMPARISON: August 28, 2017 | | | | TECHNIQUE: Two view chest, PA and lateral views | | | | FINDINGS: | | Bilateral pulmonary vascular congestion. Bibasilar mild atelectasis. | | | | No pneumothorax. | | | | Upper mediastinal contours and heart size are normal. | | | | No acute osseous abnormality. | | | | IMPRESSION: | | Bilateral pulmonary vascular congestion. Bibasilar atelectasis. | | | | | + + + + + + + | Performing | Address | City/State/Zipcode | Phone Number | | Organization | | | | + + + + + | [facility] | [address] | [place] [address] | | + + + + + aPTT (09/28/2017 6:00 PM) + + + + + | Component | Value | Ref Range | Performed At | + + + + + | APTT | 29Comment: Testing | 23 - 32 seconds | [facility] | | | performed at [facility];[address] | | | | | [address];[place] | | | | | [address] | | | + + + + + + + + + + | Performing | Address | City/State/Zipcode | Phone Number | | Organization | | | | + + + + + | [facility] | [address] | [place] [address] | | + + + + + Protime-INR (09/28/2017 6:00 PM) + + + + + | Component | Value | Ref Range | Performed At | + + + + + | INR | 1.1Comment: REFERENCE | | [facility] | | | RANGE:0.9 - | | | | | 1.2 NON-ANTICOAGULATE | | | | | D2.0 - 3.0 ALL OTHER | | | | | THERAPEUTIC | | | | | INDICATIONS2.5 - 3.5 | | | | | MECHANICAL HEART VALVES, | | | | | RECURRENT OR SYSTEMIC | | | | | EMBOLISMTesting | | | | | performed at [facility];[address] | | | | | [address];[place], [place] | | | | | [address] | | | + + + + + + + + + + | Performing | Address | City/State/Zipcode | Phone Number | | Organization | | | | + + + + + | [facility] | [address] | [place] [address] | | + + + + + BNP (09/28/2017 5:40 PM) + + + + + | Component | Value | Ref Range | Performed At | + + + + + | BRAIN NATRIURETIC | 32.9Comment: Testing | 0 - 100 pg/mL | [facility] | | PEPTIDE | performed at [facility];[address] | | | | | [address];[place] | | | | | [address] | | | + + + + + + + | Specimen | + + | Blood | + + + + + + + | Performing | Address | City/State/Zipcode | Phone Number | | Organization | | | | + + + + + | [facility] | [address] | [facility] [address] | | + + + + + Cardiac Panel (09/28/2017 5:40 PM) + + + + + | Component | Value | Ref Range | Performed At | + + + + + | WBC | 12.67 (H) | 3.80 - 11.00 K/uL | [facility] | + + + + + | RBC | 4.21 | 4.20 - 5.70 M/uL | [facility] | + + + + + | HGB | 13.5 | 13.2 - 17.0 g/dL | [facility] | + + + + + | HCT | 40.7 | 39.0 - 50.0 % | [facility] | + + + + + | MCV | 96.6 | 80.0 - 100.0 fl | [facility] | + + + + + | MCH | 32.0 | 27.0 - 34.0 pg | [facility] | + + + + + | MCHC | 33.1 | 32.0 - 35.5 g/dL | [facility] | + + + + + | RDW SD | 48.6 | 37 - 53 fl | [facility] | + + + + + | PLT | 194 | 150 - 400 K/uL | [facility] | + + + + + | MPV | 9.4 | fl | [facility] | + + + + + | DIFF TYPE | AUTOMATED | | [facility] | + + + + + | NEUTROPHILS | 78.22 | % | [facility] | + + + + + | LYMPHOCYTES | 11.30 | % | [facility] | + + + + + | MONOCYTES | 8.09 | % | [facility] | + + + + + | EOSINOPHILS | 1.72 | % | [facility] | + + + + + | BASOPHILS | 0.67 | % | [facility] | + + + + + | NEUTROPHILS ABS | 9.91 (H) | 1.90 - 7.40 K/uL | [facility] | + + + + + | LYMPHOCYTES ABS | 1.43 | 1.00 - 3.90 K/uL | [facility] | + + + + + | MONOCYTES ABS | 1.03 (H) | 0.00 - 0.80 K/uL | [facility] | + + + + + | EOSINOPHILS ABS | 0.22 | 0.00 - 0.50 K/uL | [facility] | + + + + + | BASOPHILS ABS | 0.09Comment: Testing | 0.00 - 0.10 K/uL | [facility] | | | performed at [facility];[address] | | | | | [address];[place], [place] | | | | | [address] | | | + + + + + | SODIUM | SPECIMEN HEMOLYZED, WILL | 135 - 145 mmol/L | [facility] | | | BE REDRAWN RN TO SEND | | | + + + + + | POTASSIUM | SPECIMEN HEMOLYZED, WILL | 3.5 - 4.9 mmol/L | [facility] | | | BE REDRAWN RN TO SEND | | | + + + + + | CHLORIDE | SPECIMEN HEMOLYZED, WILL | 99 - 109 mmol/L | [facility] | | | BE REDRAWN RN TO SEND | | | + + + + + | CO2 | SPECIMEN HEMOLYZED, WILL | 23 - 32 mmol/L | [facility] | | | BE REDRAWN RN TO SEND | | | + + + + + | ANION GAP AGAP | SPECIMEN HEMOLYZED, WILL | 5 - 20 mmol/L | [facility] | | | BE REDRAWN RN TO SEND | | | + + + + + | GLUCOSE | SPECIMEN HEMOLYZED, WILL | 65 - 99 mg/dL | [facility] | | | BE REDRAWN RN TO SEND | | | + + + + + | BUN | SPECIMEN HEMOLYZED, WILL | 8 - 25 mg/dL | [facility] | | | BE REDRAWN RN TO SEND | | | + + + + + | CREATININE | SPECIMEN HEMOLYZED, WILL | 0.70 - 1.30 mg/dL | [facility] | | | BE REDRAWN RN TO SEND | | | + + + + + | BUN/CREAT | SPECIMEN HEMOLYZED, WILL | | [facility] | | | BE REDRAWN RN TO SEND | | | + + + + + | CALCIUM | SPECIMEN HEMOLYZED, WILL | 8.5 - 10.5 mg/dL | [facility] | | | BE REDRAWN RN TO SEND | | | + + + + + | TOTAL PROTEIN | SPECIMEN HEMOLYZED, WILL | 6.3 - 8.2 g/dL | [facility] | | | BE REDRAWN RN TO SEND | | | + + + + + | Albumin | SPECIMEN HEMOLYZED, WILL | 3.3 - 4.8 g/dL | [facility] | | | BE REDRAWN RN TO SEND | | | + + + + + | GLOBULIN | SPECIMEN HEMOLYZED, WILL | 1.3 - 4.9 g/dL | [facility] | | | BE REDRAWN RN TO SEND | | | + + + + + | A/G | SPECIMEN HEMOLYZED, WILL | 1.0 - 2.4 | [facility] | | | BE REDRAWN RN TO SEND | | | + + + + + | TBIL | SPECIMEN HEMOLYZED, WILL | 0.1 - 1.5 mg/dL | [facility] | | | BE REDRAWN RN TO SEND | | | + + + + + | ALK PHOS | SPECIMEN HEMOLYZED, WILL | 35 - 115 U/L | [facility] | | | BE REDRAWN RN TO SEND | | | + + + + + | AST | SPECIMEN HEMOLYZED, WILL | 10 - 45 U/L | [facility] | | | BE REDRAWN RN TO SEND | | | + + + + + | ALT | SPECIMEN HEMOLYZED, WILL | 10 - 65 U/L | [facility] | | | BE REDRAWN RN TO SEND | | | + + + + + | EGFR | SPECIMEN HEMOLYZED, WILL | >60 mL/min/1.73m2 | [facility] | | | BE REDRAWN RN TO SEND | | | + + + + + | CPK | SPECIMEN HEMOLYZED, WILL | 55 - 400 U/L | [facility] | | | BE REDRAWN RN TO SEND | | | + + + + + | PROTIME | SPECIMEN HEMOLYZED, WILL | seconds | [facility] | | | BE REDRAWN RN TO SEND | | | + + + + + | INR | SPECIMEN HEMOLYZED, WILL | | [facility] | | | BE REDRAWN RN TO SEND | | | + + + + + | APTT | SPECIMEN HEMOLYZED, WILL | 23 - 32 seconds | [facility] | | | BE REDRAWN RN TO SEND | | | + + + + + | MMB | SPECIMEN HEMOLYZED, WILL | 0.5 - 3.6 ng/mL | [facility] | | | BE REDRAWN RN TO SEND | | | + + + + + | CK-MB Index | SPECIMEN HEMOLYZED, WILL | | [facility] | | | BE REDRAWN ELVIS TO SEND | | | + + + + + + + + + + | Performing | Address | City/State/Zipcode | Phone Number | | Organization | | | | + + + + + | [facility] | [address] | [place] [address] | | + + + + + EKG 12 LEAD UNIT PERFORMED (09/28/2017 5:31 PM) + + + + + | Component | Value | Ref Range | Performed At | + + + + + | Ventricular Rate | 74 | BPM | [facility] | + + + + + | Atrial Rate | 74 | BPM | [facility] | + + + + + | P-R Interval | 158 | ms | [facility] | + + + + + | QRS Duration | 88 | ms | [facility] | + + + + + | Q-T Interval | 378 | ms | [facility] | + + + + + | QTC Calculation | 419 | ms | [facility] | | (Bezet) | | | | + + + + + | Calculated P [place] | 16 | degrees | [facility] | + + + + + | Calculated R [place] | 17 | degrees | [facility] | + + + + + | Calculated T [place] | 18 | degrees | [facility] | + + + + + | Diagnosis | Normal sinus | | [facility] | | | rhythmNormal ECGWhen | | | | | compared with ECG of | | | | | 28-AUG-2017 16:47,No | | | | | significant change was | | | | | foundThis ECG contains | | | | | Unconfirmed | | | | | Interpretation | | | | | Statements. See ED | | | | | Record for Physician | | | | | Interpretation. | | | | | Confirmed by MUSE READ | | | | | ONLY, -COMPUTER ([id number]), | | | | | image editor Keara Beckwith | | | | | ([id number]) on 09/29/2017 | | | | | 3:54:34 AM | | | + + + + + + + + + + | Performing | Address | City/State/Zipcode | Phone Number | | Organization | | | | + + + + + | [facility] | [address] | [place] [address] | | + + + + + ED INFORMATION EXCHANGE (09/28/2017 3:51 PM) + + + | Narrative | Performed At | + + + | [id number] [id number] This patient has registered at the | ED | | [facility] Emergency Department For more | INFORMATION | | information visit: | EXCHANGE | | [email or web address] | | | [phone] Security Events No recent Security Events currently on file | | | ED Care Guidelines from [facility] Last Updated: 08/29/17 | | | 9:04 AM Additional Information: Currently placed at [place] | | | [facility], please contact Glo | | | [place] [phone].Prescription medication goes through [facility], | | | [phone]. These are guidelines and the provider should exercise | | | clinical judgment when providing care. Recent Emergency Department | | | Visit Summary Admit Date Facility City State Type Major Type | | | Diagnoses or [facility] Weakness Shortness of | | | [facility] | | | Emergency Emergency Shortness of Breath Weakness | | | Lymphedema, not elsewhere classified E.D. Visit Count | | | (12 mo.) Facility Visits Low Acuity [facility] | | | 3 0 Total 3 0 Note: Visits indicate total known visits. Medicaid | | | Low Acuity Dx are the number of primary diagnoses on the Medicaid's | | | Low Acuity dx list. Recent Inpatient Visit Summary No | | | recorded inpatient visits. PDMP Report PDMP query found no | | | report. Care Providers Provider PRC Type Phone Fax Service Dates | | | [facility] Provider [phone] | | | [phone] Current Known Aliases No known aliases. | | | Criteria met Care Guidelines The above information is | | | provided for the sole purpose of patient treatment. Use of this | | | information beyond the terms of Data Sharing Memorandum of | | | Understanding and License Agreement is prohibited. In certain cases | | | not all visits may be represented. Consult the aforementioned | | | facilities for additional information. 2018 [employer] | | | [employer] - [place], [place] - | | | [email or web address] | | + + + + + | Procedure Note | + + | [place], Lab - 09/28/2017 3:52 PM PDT Formatting of this note may be different | | from the original.[id number] [id number] patient has registered at the [facility] | | [facility] Emergency Department For more information visit: | | [email or web address] Security | | EventsNo recent Security Events currently on fileED Care Guidelines from [employer] - | | Alexis Updated: 08/29/17 9:04 AM Additional Information:Currently placed at | | [facility], please contact Glo [place] | | [phone].Prescription medication goes through [facility], .These are | | guidelines and the provider should exercise clinical judgment when providing care.Recent | | Emergency Department Visit SummaryAdmit Date Facility City State Type Major Type | | Diagnoses or Chief Complaint Sep 28, 2017 [facility] [place] Emergency | | Emergency Weakness Shortness of Breath Aug 28, 2017 [facility] [place]. | | [place] Emergency Emergency Shortness of Breath Weakness Lymphedema, not elsewhere | | classified E.D. Visit Count (12 mo.)Facility Visits Low Acuity [facility] | | Center 3 0 Total 3 0 Note: Visits indicate total known visits. Medicaid Low Acuity Dx | | are the number of primary diagnoses on the Medicaid's Low Acuity dx list. Recent | | Inpatient Visit SummaryNo recorded inpatient visits. PDMP ReportPDMP query found no | | report.Care ProvidersProvider PRC Type Phone Fax Service Dates [facility] | | Mental Health Provider Current Known AliasesNo known aliases. Criteria | | met Care GuidelinesThe above information is provided for the sole purpose of patient | | treatment. Use of this information beyond the terms of Data Sharing Memorandum of | | Understanding and License Agreement is prohibited. In certain cases not all visits may | | be represented. Consult the aforementioned facilities for additional information. 2018 | | [employer] - [place], [place] - | | [email or web address] | | | | | | | |E.D. Visit Count (12 mo.) | |Facility Visits Low Acuity | |[facility] 3 0 | |Total 3 0 | |Note: Visits indicate total known visits. Medicaid Low Acuity Dx are the number of primary diagnoses on the Medicaid's Low Acuity dx list. | | | |Recent Inpatient Visit Summary | |No recorded inpatient visits. | | | |PDMP Report | |PDMP query found no report. | | | |Care Providers | |Provider PRC Type Phone Fax Service Dates | |[facility] Provider Current | | | |Known Aliases | |No known aliases. | |Criteria met | | | | Care Guidelines | | | |The above information is provided for the sole purpose of patient treatment. Use of this in formation beyond the terms of Data Sharing Memorandum of Understanding and License Agreement is prohibited. In | |certain cases not all visits may be represented. Consult the aforementioned facilities for additional information. | |2018 [employer] - [place], [place] - [email or web address] | + + + +---------+ + + | Performing | Address | City/State/Zipcode | Phone Number | | Organization | | | | + +---------+ + + | ED INFORMATION | | | | | EXCHANGE | | | | + +---------+ + + in this encounter Visit Diagnoses + + | Diagnosis | + + | Hypoxemia - Primary | + + | COPD with acute exacerbation (HCC) | + + | Obstructive chronic bronchitis with exacerbation | + + | Dyspnea on exertion | + + | Other dyspnea and respiratory abnormality | + + | Leg swelling | + + | Swelling of limb | + + | BMI 31.0-31.9,adult | + + | Body Mass Index 31.0-31.9, adult | + + | Schizoaffective disorder (HCC) | + + | Schizoaffective disorder, unspecified condition | + + | COPD (chronic obstructive pulmonary disease) ([facility]) | + + | Chronic airway obstruction, not elsewhere classified | + + Admitting Diagnoses + + | Diagnosis | + + | Hypoxemia | + + | Dyspnea on exertion | + + | Other dyspnea and respiratory abnormality | + + | Leg swelling | + + | Swelling of limb | + + | COPD with acute exacerbation (HCC) | + + | Obstructive chronic bronchitis with exacerbation | + + Administered Medications + +--------+---------+------+------+------+ | Medication Order | MAR | Action | Dose | Rate | Site | | | Action | Date | | | | + +--------+---------+------+------+------+ + +---+ | acetaminophen (TYLENOL) | | | suppository 650 mg 650 mg, | | | Rectal, Every 6 Hours PRN, Mild | | | Pain (1-3), Fever, Starting Sun | | | 09/28/17 at 1959 | | + +---+ | | | + +---+ | acetaminophen (TYLENOL) tablet | | | 650 mg 650 mg, Oral, Every 6 | | | Hours PRN, Mild Pain (1-3), | | | Fever, Starting Sun09/28/17 at | | | 1959 | | + +---+ | | | + +---+ + +-------+ +-------+---+---+ | atorvastatin (LIPITOR) tablet | Given | | 20 mg | | | | 20 mg 20 mg, Oral, Nightly, | | 8 22:27 | | | | | First dose on Sun09/28/17 at 2200 | | PDT | | | | + +-------+ +-------+---+---+ +-------+ +-------+---+---+ | Given | | 20 mg | | | | | 8 22:03 | | | | | | PDT | | | | +-------+ +-------+---+---+ | Given | | 20 mg | | | | | 8 20:42 | | | | | | PDT | | | | +-------+ +-------+---+---+ +---+---+ | | | +---+---+ + +---------+ +--------+-------+---+ | azithromycin (ZITHROMAX) IVPB | New Bag | | 500 mg | 250 | | | 500 mg 500 mg, Intravenous, | | 8 19:39 | | mL/hr | | | Administer over 60 Minutes, Once, | | PDT | | | | | 09/28/17 at 1911, For 1 dose | | | | | | + +---------+ +--------+-------+---+ +---+---+ | | | +---+---+ + +-------+ +--------+---+---+ | budesonide (PULMICORT) | Given | | 0.5 mg | | | | nebulizer suspension 0.5 mg 0.5 | | 8 06:55 | | | | | mg, Nebulization, 2 Times Daily, | | PDT | | | | | First dose on Sun09/28/17 at 2100 | | | | | | + +-------+ +--------+---+---+ +-------+ +--------+---+---+ | Given | | 0.5 mg | | | | | 8 20:21 | | | | | | PDT | | | | +-------+ +--------+---+---+ | Given | | 0.5 mg | | | | | 8 07:00 | | | | | | PDT | | | | +-------+ +--------+---+---+ +---+---+ | | | +---+---+ + +-------+ +--------+---+---+ | buPROPion (WELLBUTRIN XL) 24 hr | Given | | 300 mg | | | | tablet 300 mg 300 mg, Oral, | | 8 10:35 | | | | | Every Morning, First dose on Sat | | PDT | | | | | 09/29/17 at 0900 | | | | | | + +-------+ +--------+---+---+ +-------+ +--------+---+---+ | Given | | 300 mg | | | | | 8 09:48 | | | | | | PDT | | | | +-------+ +--------+---+---+ | Given | | 300 mg | | | | | 8 09:37 | | | | | | PDT | | | | +-------+ +--------+---+---+ +---+---+ | | | +---+---+ + +-------+ +-------+---+---+ | enoxaparin (LOVENOX) injection | Given | | 40 mg | | | | 40 mg 40 mg, Subcutaneous, Every | | 8 22:26 | | | | | 24 Hours, First dose on Fri | | PDT | | | | | 09/28/17 at 2030 | | | | | | + +-------+ +-------+---+---+ +-------+ +-------+---+---+ | Given | | 40 mg | | | | | 8 22:03 | | | | | | PDT | | | | +-------+ +-------+---+---+ | Given | | 40 mg | | | | | 8 20:42 | | | | | | PDT | | | | +-------+ +-------+---+---+ + +---+ | | | + +---+ | famotidine (PEPCID) IVPB 20 mg | | | 20 mg, Intravenous, Administer | | | over 30 Minutes, 2 Times Daily, | | | First dose on Sun09/28/17 at 2100 | | + +---+ | | | + +---+ + +-------+ +-------+---+---+ | famotidine (PEPCID) tablet 20 | Given | | 20 mg | | | | mg 20 mg, Oral, 2 Times Daily, | | 8 09:49 | | | | | First dose on Sun09/28/17 at 2100 | | PDT | | | | + +-------+ +-------+---+---+ +-------+ +-------+---+---+ | Given | | 20 mg | | | | | 8 20:42 | | | | | | PDT | | | | +-------+ +-------+---+---+ | Given | | 20 mg | | | | | 8 09:36 | | | | | | PDT | | | | +-------+ +-------+---+---+ +---+---+ | | | +---+---+ + +-------+ +-------+---+---+ | furosemide (LASIX) tablet 20 mg | Given | | 20 mg | | | | 20 mg, Oral, Daily, First dose | | 8 10:30 | | | | | on Sun09/29/17 at 0900 | | PDT | | | | + +-------+ +-------+---+---+ +-------+ +-------+---+---+ | Given | | 20 mg | | | | | 8 09:49 | | | | | | PDT | | | | +-------+ +-------+---+---+ | Given | | 20 mg | | | | | 8 09:36 | | | | | | PDT | | | | +-------+ +-------+---+---+ +---+---+ | | | +---+---+ + +-------+ +---------+---+---+ | iopamidol (ISOVUE-370) 76 % | Given | | 100 mLs | | | | injection 100 mL 100 mL, | | 8 23:23 | | | | | Intravenous, Img Once PRN, Other, | | PDT | | | | | Starting 09/28/17 at 2313, | | | | | | | For 1 dose | | | | | | + +-------+ +---------+---+---+ +---+---+ | | | +---+---+ + +-------+ +-------+---+---+ | ipratropium-albuterol (DUO-NEB) | Given | | 3 mLs | | | | 0.5-2.5 mg/3mL nebulizer | | 8 17:48 | | | | | solution 3 mL 3 mL, | | PDT | | | | | Nebulization, Once RT, Fri | | | | | | | 09/28/17 at 1724, For 1 dose | | | | | | + +-------+ +-------+---+---+ +---+---+ | | | +---+---+ + +-------+ +-------+---+---+ | ipratropium-albuterol (DUO-NEB) | Given | | 3 mLs | | | | 0.5-2.5 mg/3mL nebulizer | | 8 23:20 | | | | | solution 3 mL 3 mL, | | PDT | | | | | Nebulization, Every 4 Hours While | | | | | | | Awake, First dose on Sun09/28/17 | | | | | | | at 2200 | | | | | | + +-------+ +-------+---+---+ +-------+ +-------+---+---+ | Given | | 3 mLs | | | | | 8 07:00 | | | | | | PDT | | | | +-------+ +-------+---+---+ | Given | | 3 mLs | | | | | 8 11:00 | | | | | | PDT | | | | +-------+ +-------+---+---+ +---+---+ | | | +---+---+ + +-------+ +--------+-------+---+ | levofloxacin (LEVAQUIN) IVPB | Given | | 500 mg | 100 | | | 500 mg 500 mg, Intravenous, | | 8 00:30 | | mL/hr | | | Administer over 60 Minutes, Every | | PDT | | | | | 24 Hours, First dose on Sat | | | | | | | 09/29/17 at 0000 | | | | | | + +-------+ +--------+-------+---+ +-------+ +--------+-------+---+ | Given | | 500 mg | 100 | | | | 8 01:30 | | mL/hr | | | | PDT | | | | +-------+ +--------+-------+---+ | Given | | 500 mg | 100 | | | | 8 23:52 | | mL/hr | | | | PDT | | | | +-------+ +--------+-------+---+ +---+---+ | | | +---+---+ + +-------+ +-------+---+---+ | lurasidone (LATUDA) tablet 40 | Given | | 40 mg | | | | mg 40 mg, Oral, Daily, First | | 8 22:26 | | | | | dose on Sun09/28/17 at 2100 | | PDT | | | | + +-------+ +-------+---+---+ +-------+ +-------+---+---+ | Given | | 40 mg | | | | | 8 22:03 | | | | | | PDT | | | | +-------+ +-------+---+---+ | Given | | 40 mg | | | | | 8 20:42 | | | | | | PDT | | | | +-------+ +-------+---+---+ +---+---+ | | | +---+---+ + +-------+ +--------+---+---+ | methylPREDNISolone | Given | | 125 mg | | | | (Solu-MEDROL) injection 125 mg | | 8 18:02 | | | | | 125 mg, Intravenous, Once, Sun | | PDT | | | | | 09/28/17 at 1724, For 1 dose | | | | | | + +-------+ +--------+---+---+ +---+---+ | | | +---+---+ + +-------+ +-------+---+---+ | OLANZapine (ZyPREXA) tablet 10 | Given | | 10 mg | | | | mg 10 mg, Oral, 2 Times Daily, | | 8 09:49 | | | | | First dose on Sun09/28/17 at 2100 | | PDT | | | | + +-------+ +-------+---+---+ +-------+ +-------+---+---+ | Given | | 10 mg | | | | | 8 20:43 | | | | | | PDT | | | | +-------+ +-------+---+---+ | Given | | 10 mg | | | | | 8 09:37 | | | | | | PDT | | | | +-------+ +-------+---+---+ +---+---+ | | | +---+---+ + +-------+ +-------+---+---+ | pantoprazole (PROTONIX) EC | Given | | 40 mg | | | | tablet 40 mg 40 mg, Oral, Every | | 8 05:33 | | | | | Morning Before Breakfast, First | | PDT | | | | | dose on 09/29/17 at 0630 | | | | | | + +-------+ +-------+---+---+ +-------+ +-------+---+---+ | Given | | 40 mg | | | | | 8 05:45 | | | | | | PDT | | | | +-------+ +-------+---+---+ | Given | | 40 mg | | | | | 8 08:00 | | | | | | PDT | | | | +-------+ +-------+---+---+ +---+---+ | | | +---+---+ + +-------+ +--------+---+---+ | potassium chloride (K-DUR) CR | Given | | 40 mEq | | | | tablet 40 mEq 40 mEq, Oral, | | 8 09:36 | | | | | Once, 10/01/17 at 0800, For 1 | | PDT | | | | | dose | | | | | | + +-------+ +--------+---+---+ +---+---+ | | | +---+---+ + +-------+ +-------+---+---+ | predniSONE (DELTASONE) tablet | Given | | 50 mg | | | | 50 mg 50 mg, Oral, Daily With | | 8 10:29 | | | | | Breakfast, First dose on Sat | | PDT | | | | | 09/29/17 at 0800 | | | | | | + +-------+ +-------+---+---+ +-------+ +-------+---+---+ | Given | | 50 mg | | | | | 8 09:49 | | | | | | PDT | | | | +-------+ +-------+---+---+ | Given | | 50 mg | | | | | 8 09:36 | | | | | | PDT | | | | +-------+ +-------+---+---+ +---+---+ | | | +---+---+ + +-------+ +-------+---+---+ | propranolol (INDERAL) tablet 20 | Given | | 20 mg | | | | mg 20 mg, Oral, 2 Times Daily, | | 8 09:48 | | | | | First dose on Sun09/28/17 at 2100 | | PDT | | | | + +-------+ +-------+---+---+ +-------+ +-------+---+---+ | Given | 7/29/201 | 20 mg | | | | | 8 20:43 | | | | | | PDT | | | | +-------+ +-------+---+---+ | Given | | 20 mg | | | | | 8 09:36 | | | | | | PDT | | | | +-------+ +-------+---+---+ +---+---+ | | | +---+---+ + +-------+ +--------+---+---+ | sertraline (ZOLOFT) tablet 100 | Given | | 100 mg | | | | mg 100 mg, Oral, Daily, First | | 8 10:30 | | | | | dose on 09/29/17 at 0800 | | PDT | | | | + +-------+ +--------+---+---+ +-------+ +--------+---+---+ | Given | | 100 mg | | | | | 8 09:49 | | | | | | PDT | | | | +-------+ +--------+---+---+ | Given | | 100 mg | | | | | 8 09:43 | | | | | | PDT | | | | +-------+ +--------+---+---+ +---+---+ | | | +---+---+ + +-------+ +-------+---+---+ | sertraline (ZOLOFT) tablet 50 | Given | | 50 mg | | | | mg 50 mg, Oral, See Admin | | 8 15:55 | | | | | Instructions, Starting Sat | | PDT | | | | | 09/29/17 at 1500 | | | | | | + +-------+ +-------+---+---+ +-------+ +-------+---+---+ | Given | | 50 mg | | | | | 8 15:09 | | | | | | PDT | | | | +-------+ +-------+---+---+ + +---+ | | | + +---+ | sertraline (ZOLOFT) tablet 50 | | | mg 50 mg, Oral, Every Evening, | | | First dose on 10/01/17 at 1600 | | + +---+ | | | + +---+ + +-------+ +--------+---+---+ | sodium chloride (PF) 0.9 % | Given | | 10 mLs | | | | flush 10 mL 10 mL, Intravenous, | | 8 12:09 | | | | | Every 8 Hours, First dose on Fri | | PDT | | | | | 09/28/17 at 2030 | | | | | | + +-------+ +--------+---+---+ +-------+ +--------+---+---+ | Given | | 10 mLs | | | | | 8 20:44 | | | | | | PDT | | | | +-------+ +--------+---+---+ | Given | | 10 mLs | | | | | 8 09:36 | | | | | | PDT | | | | +-------+ +--------+---+---+ +---+---+ | | | +---+---+ + +-------+ +-------+---+---+ | topiramate (TOPAMAX) tablet 25 | Given | | 25 mg | | | | mg 25 mg, Oral, 2 Times Daily, | | 8 09:49 | | | | | First dose on Sun09/28/17 at 2100 | | PDT | | | | + +-------+ +-------+---+---+ +-------+ +-------+---+---+ | Given | | 25 mg | | | | | 8 20:42 | | | | | | PDT | | | | +-------+ +-------+---+---+ | Given | | 25 mg | | | | | 8 09:37 | | | | | | PDT | | | | +-------+ +-------+---+---+ +---+---+ | | | +---+---+ + +-------+ +--------+---+---+ | umeclidinium-vilanterol (ANORO | Given | | 1 puff | | | | ELLIPTA) 62.5-25 MCG/INH inhaler | | 8 10:28 | | | | | 1 puff 1 puff, Inhalation, | | PDT | | | | | Daily, First dose on Sun09/28/17 | | | | | | | at 2030 | | | | | | + +-------+ +--------+---+---+ +-------+ +--------+---+---+ | Given | | 1 puff | | | | | 8 09:47 | | | | | | PDT | | | | +-------+ +--------+---+---+ | Given | | 1 puff | | | | | 8 09:36 | | | | | | PDT | | | | +-------+ +--------+---+---+ +---+---+ | | | +---+---+ in this encounter
--- OUTSIDE RECORDS SUMMARY | ~2017-11-20 | XMS | Encounter Summary ---
Demographics + + + | Address | [address] | | | [place] [address] | + + + | Home Phone | | + + + | Preferred Language | Unknown | + + + | Marital Status | | + + + | Buddhism Affiliation | 1041 | + + + | Race | Unknown | + + + | Ethnic Group | Unknown | + + + Author + + + | Author | [facility] | + + + | Organization | [facility] | + + + | Address [...] Team Providers + +------+ + | Care Assistive Technology Trainer Name | Role | Phone | + +------+ + | Julio Motta | PCP | | + +------+ + Reason for Visit + + + | Reason | Comments | + + + | Medication Problem | [facility] | + + + Encounter Details +--------+ + + + + | Date | Type | Department | Care Team | Description | +--------+ + + + + | 10/24/ | Telephone | [facility] | Tammy Bloom | Medication Problem | | 2017 | | [facility] | T, RN | (Ellie Sánchez | | | | [address] | | [place]unn) | | | | [place] [address] | | | | | | [phone] | | | +--------+ + + + [...] Dr | | | | | | [place] [address] | | | | | | [phone] | | | | | | | | +--------+---------+ + + + as of this encounter Visit Diagnoses Not on filein this encounter"
--- OUTSIDE RECORDS SUMMARY | ~2017-11-20 | XMS | Clinical Summary ---
Demographics + + + | Address | [address] | | | [place] [address] | + + + | Home Phone | | + + + | Preferred Language | Unknown | + + + | Marital Status | | + + + | Mosque Affiliation | 1041 | + + + | Race | Unknown | + + + | Ethnic Group | Unknown | + + + Author + + + | Author | [facility] | + + + | Organization | [facility] | + + + | Address [...] Team Providers + +------+ + | [employer] Name | Role | Phone | + +------+ + | Leah Motta | PP | | + +------+ + Allergies + + + + + + | Active Allergy | Reactions | Severity | Noted | Comments | | | | | Date | | + + + + + + | Peanut Oil | Shortness of Breath, | High | 12/20/20 | | | | Hives | | 10 | | + + + + + + Current Medications + + + +---------+------+------+-------+ | Prescription | Sig. | Disp. | Refills | Star | End | Statu | | | | | | t | Date | s | | | | | | Date | | | + + + +---------+------+------+-------+ | ergocalciferol | Take 50,000 Units by | | | | | Activ | | (DRISDOL) [id number] | mouth once a week. | | | | | e | | units capsule | | | | | | | + + + +---------+------+------+-------+ | omeprazole | Take 20 mg by mouth | | | | | Activ | | (PRILOSEC) 20 MG | 2 (two) times daily. | | | | | e | | capsule | | | | | | | + + + +---------+------+------+-------+ | simvastatin | Take 40 mg by mouth | | | | | Activ | | (ZOCOR) 40 MG tablet | nightly. | | | | | e | + + + +---------+------+------+-------+ | polyethylene | Take 17 g by mouth | | | | | Activ | | glycol (GLYCOLAX) | daily. | | | | | e | | packet | | | | | | | + + + +---------+------+------+-------+ | budesonide | Take 0.5 mg by | | | | | Activ | | (PULMICORT) 0.5 | nebulization 2 (two) | | | | | e | | MG/2ML nebulizer | times daily. | | | | | | | suspension | | | | | | | + + + +---------+------+------+-------+ | topiramate | Take 25 mg by mouth | | | | | Activ | | (TOPAMAX) 25 MG | 2 (two) times daily. | | | | | e | | tablet | | | | | | | + + + +---------+------+------+-------+ | sertraline | Take 50-100 mg by | | | | | Activ | | (ZOLOFT) 100 MG | mouth See Admin | | | | | e | | tablet | Instructions. Take | | | | | | | | 100 mg by mouth | | | | | | | | every morning and 50 | | | | | | | | mg by mouth in the | | | | | | | | afternoon | | | | | | + + + +---------+------+------+-------+ | buPROPion | Take 300 mg by mouth | | | | | Activ | | (WELLBUTRIN XL) 300 | every morning. | | | | | e | | MG 24 hr tablet | | | | | | | + + + +---------+------+------+-------+ | OLANZapine | Take 10 mg by mouth | | | | | Activ | | (ZYPREXA) 20 MG | 2 (two) times daily. | | | | | e | | tablet | | | | | | | + + + +---------+------+------+-------+ | L-methylfolate | Take 15 mg by mouth | | | | | Activ | | (DEPLIN) 15 MG | daily with | | | | | e | | tablet | breakfast. | | | | | | + + + +---------+------+------+-------+ | Methylcobalamin | Take 5,000 mcg by | | | | | Activ | | (METHYL B-12 PO) | mouth 2 (two) times | | | | | e | | | daily. | | | | | | + + + +---------+------+------+-------+ | propranolol | Take 20 mg by mouth | | | | | Activ | | (INDERAL) 20 MG | 2 (two) times daily. | | | | | e | | tablet | | | | | | | + + + +---------+------+------+-------+ | lurasidone | Take 40 mg by mouth | | | | | Activ | | (LATUDA) 40 MG | daily. | | | | | e | | tablet | | | | | | | + + + +---------+------+------+-------+ | oxycodone (OXY-IR) | Take 1 capsule by | 30 | 0 | 04/0 | | Activ | | 5 MG capsule | mouth every 6 (six) | capsule | | 8/20 | | e | | | hours as needed. | | | 18 | | | + + + +---------+------+------+-------+ | albuterol | Inhale 2 puffs into | | | | | Activ | | (PROVENTIL | the lungs every 4 | | | | | e | | HFA;VENTOLIN HFA) | (four) hours as | | | | | | | 108 (90 Base) | needed for Wheezing. | | | | | | | MCG/ACT inhaler | | | | | | | + + + +---------+------+------+-------+ | | Inhale 1 puff into | 1 each | 11 | 07/2 | | Activ | | umeclidinium-vilante | the lungs daily. | | | 6/20 | | e | | rol (ANORO ELLIPTA) | | | | 18 | | | | 62.5-25 MCG/INH | | | | | | | | inhalerIndications: | | | | | | | | Asthma with COPD | | | | | | | | (chronic obstructive | | | | | | | | pulmonary disease) | | | | | | | | ([facility]) | | | | | | | + + + +---------+------+------+-------+ | Acetaminophen 500 | Take 1,000 mg by | | | | | Activ | | MG coapsule | mouth 4 (four) times | | | | | e | | | daily. | | | | | | + + + +---------+------+------+-------+ | furosemide (LASIX) | Take 20 mg by mouth | | | | | Activ | | 20 MG tablet | daily. | | | | | e | + + + +---------+------+------+-------+ | guaifenesin | Take 1,200 mg by | | | | | Activ | | (MUCINEX MAX) 1200 | mouth every 6 (six) | | | | | e | | MG 12hr tablet | hours as needed. | | | | | | + + + +---------+------+------+-------+ | dextromethorphan | Take 60 mg by mouth | | | | | Activ | | polistirex (DELSYM) | every 12 (twelve) | | | | | e | | 30 MG/5ML ER | hours as needed for | | | | | | | suspension | Cough. | | | | | | + + + +---------+------+------+-------+ | levofloxacin | Take 1 tablet by | 5 | 0 | 07/3 | | Activ | | (LEVAQUIN) 750 MG | mouth daily. | tablet | | 0/20 | | e | | tablet | | | | 18 | | | + + + +---------+------+------+-------+ | | Every 4 hours x 5 | 360 mL | 0 | 07/3 | | Activ | | ipratropium-albutero | days then Q4H prn | | | 0/20 | | e | | l (DUO-NEB) 0.5-2.5 | for SOB or wheezing | | | 18 | | | | mg/3mL | | | | | | | + + + +---------+------+------+-------+ | predniSONE | Take 2 tabs x 3 days | 6 | 0 | 07/3 | | Activ | | (DELTASONE) 20 MG | then stop | tablet | | 0/20 | | e | | tablet | | | | 18 | | | + + + +---------+------+------+-------+ Active Problems + + + | Problem | Noted Date | + + + | Hypoxemia | 09/28/2017 | + + + | BMI 31.0-31.9,adult | 09/28/2017 | + + + | Schizoaffective disorder (HCC) | 09/28/2017 | + + + | Leg swelling | 09/28/2017 | + + + | COPD (chronic obstructive pulmonary disease) (HCC) | 09/28/2017 | + + + | Asthma with COPD (chronic obstructive pulmonary disease) (HCC) | 09/27/2017 | + + + | Personal history of tobacco use, presenting hazards to health | 09/27/2017 | + + + | Nocturnal hypoxemia | 09/27/2017 | + + + | JONEL (obstructive sleep apnea) | 09/27/2017 | + + + | Multiple pulmonary nodules | 09/27/2017 | + + + | Compression fracture of thoracic vertebra (HCC) | 09/27/2017 | + + + | Traumatic brain injury (HCC) | 09/27/2017 | + + + | Hypoxemia | 06/09/2017 | + + + | COPD (chronic obstructive pulmonary disease) (HCC) | 06/09/2017 | + + + | Schizoaffective disorder (HCC) | 06/09/2017 | + + + | Essential hypertension | 06/09/2017 | + + + | Memory deficits | 06/09/2017 | + + + | GI bleeding | 02/20/2010 | + + + Resolved Problems + + + + | Problem | Noted | Resolved | | | Date | Date | + + + + | Weakness | 06/10/19 | | | | 18 | 8 | + + + + Encounters +--------+ + + + + | Date | Type | Specialty | Care Team | Description | +--------+ + + + + | 11/18/ | Emergency | | | Fall, initial | | 2017 | | | | encounter (Primary | | | | | | Dx); Closed | | | | | | compression fracture | | | | | | of first lumbar | | | | | | vertebra, initial | | | | | | encounter (HCC) | +--------+ + + + + | 10/26/ | Telephone | | Jeana Solitario RN | | | 2017 | | | | | +--------+ + + + + | 10/24/ | Telephone | | Tammy Bloom | Medication Problem | | 2018 | | | T, RN | (Prior auth, [employer] | | | | | | neb, [employer]) | +--------+ + + + + | 09/28/ | Hospital | | Delfino Ochoa | COPD with acute | | 2018 - | Encounter | | DO Robert Lloyd Grace, | exacerbation (HCC) | | | | | Ursula Gaspar MD | (Primary Dx); | | 10/01/ | | | | Dyspnea on exertion; | | 2018 | | | | Hypoxemia; Leg | | | | | | swelling | +--------+ + + + + +---+ + | | Discharge | | | Summaries | | | - Idalia | | | MD Ursula - | | | 10/01/2017 | | | 12:47 PM | | | PDT | | | Formatting | | | of this | | | note may be | | | different | | | from the | | | original.[facility] | | Service: | | | Hospitalist | | | Discharge | | | SummaryDate | | | of | | | Admission: | | | | | | 09/28/2017Da | | | te of | | | Discharge: | | | | | | 10/01/2017Di | | | schalenardge | | | Provider: | | | Ursula Friedman | | | MDTreatment | | | Team: | | | Admitting | | | Provider: | | | Beata | | | Hercl, | | | DODischarge | | | Diagnoses: | | | Principal | | | Problem: | | | HypoxemiaAc | | | tive | | | Problems: | | | BMI | | | 31.0-31.9,a | | | dult | | | Schizoaffec | | | tive | | | disorder | | | (HCC) Leg | | | swelling | | | COPD | | | (chronic | | | obstructive | | | pulmonary | | | disease) | | | (HCC)Resolv | | | ed | | | Problems: | | | * No | | | resolved | | | hospital | | | problems. | | | *Final | | | Diagnoses: | | | Acute on | | | chronic | | | hypoxic | | | respiratory | | | failure | | | CAP JONEL, | | | nocturnal | | | oxygen use | | | but refuses | | | CPAP | | | COPD | | | Schizoaffec | | | tive | | | disorder | | | Persistent | | | leukocytosi | | | s due to | | | prednisoneP | | | rocedures: | | | * No | | | surgery | | | found | | | *Significan | | | t | | | Diagnostic | | | Studies: | | | Xr Chest Pa | | | And | | | LateralResu | | | lt Date: | | | 09/28/2017Bi | | | lateral | | | pulmonary | | | vascular | | | congestion. | | | Bibasilar | | | atelectasis | | | . | | | Electronica | | | lly signed | | | by Jimmie | | | Reeve MD on | | | 09/28/2017 | | | 7:10 PMCta | | | Chest | | | Pulmonary | | | Embolism W | | | Iv | | | ConResult | | | Date: | | | 09/29/20171. | | | Some | | | images are | | | degraded | | | due to | | | motion | | | artifact. | | | No obvious | | | pulmonary | | | emboli. 2. | | | Emphysema | | | with | | | pulmonary | | | vascular | | | congestion | | | and | | | bilateral | | | infiltrate | | | or | | | atelectasis | | | , right | | | greater | | | than left. | | | 3. Dilated | | | ascending | | | aorta | | | measuring | | | 4.4 cm. No | | | aortic | | | dissection. | | | 4. Marked | | | tracheomala | | | zuleima. RADIA | | | | | | Electronica | | | lly signed | | | by Len | | | Mayhle, MD | | | on Sep 29 | | | 2018 | | | 12:56AM | | | Referring | | | Provider | | | Line: | | | [phone] | | | 5SITE ID: | | | [id number] Lower | | | Extremity | | | Venous | | | Doppler | | | BilateralRe | | | sult Date: | | | 09/28/20171. | | | No | | | evidence of | | | lower | | | extremity | | | deep vein | | | thrombosis. | | | | | | Electronica | | | lly signed | | | by Mathew T | | | King, | | | MD on | | | 09/28/2017 | | | 9:48 | | | PMBRIEF | | | HISTORY OF | | | PRESENTATIO | | | N: | | | Cheko L | | | [place] | | | is a 67 | | | y.o. male | | | with PMH | | | significant | | | for pHTN, | | | COPD, JONEL, | | | schizoaffec | | | tive | | | disorder | | | admitted | | | for SOB. | | | Pt is a | | | resident of | | | a group | | | home in | | | [place]. | | | Pt uses | | | nocturnal | | | o2 but | | | refuses | | | CPAP. Pt | | | sees Dr. | | | Guero. | | | Pt wishes | | | to be | | | DNR/DNI. | | | Please | | | refer to | | | H&P for | | | full | | | details.HOS | | | PITAL | | | COURSE: | | | Pt has | | | been having | | | SOB, CONTI, | | | orthopnea, | | | edema in | | | legs, | | | productive | | | cough, | | | wheezing. | | | Pt had CTA | | | chest that | | | was | | | negative | | | for PE but | | | showed | | | emphysema | | | with | | | pulmonary | | | vascular | | | congestion | | | and | | | bilateral | | | infiltrate | | | or | | | atelectasis | | | and marked | | | | | | tracheomala | | | zuleima. RVP | | | was | | | negative, | | | sputum | | | culture was | | | not a good | | | specimen. | | | | | | procalciton | | | in was | | | 0.93. It | | | was felt | | | that his | | | symptoms | | | were due to | | | bilateral | | | PNA with | | | diastolic | | | CHF | | | exacerbatio | | | n with | | | underlying | | | pulm HTN. | | | Pt was | | | started on | | | IV levaquin | | | and was | | | diuresed. | | | Pt also | | | started on | | | prednisone | | | for concern | | | for COPD | | | exacerbatio | | | n but this | | | is felt | | | less likely | | | will taper | | | off the | | | prednisone | | | quickly. | | | Pt still | | | with coarse | | | breath | | | sounds on | | | day of | | | discharge | | | but | | | otherwise | | | hypoxia | | | resolved | | | back to | | | baseline | | | and pt | | | clinically | | | improved. | | | Pt was | | | initially | | | requiring | | | 4L during | | | the day. | | | On day of | | | discharge, | | | pt on RA | | | during the | | | day and 2L | | | at night. | | | Pt can | | | return to | | | adult | | | family | | | home.Past | | | Medical | | | History | | | Diagnosis | | | Date | | | Asthma | | | with COPD | | | (chronic | | | obstructive | | | pulmonary | | | disease) | | | (HCC) | | | 09/27/2017 | | | | | | Back | | | injury | | | Bleeding | | | ulcer | | | COPD | | | (chronic | | | obstructive | | | pulmonary | | | disease) | | | (HCC) | | | Head | | | injury | | | JONEL | | | (obstructiv | | | e sleep | | | apnea) | | | 09/27/2017 | | | | | | Other | | | chronic | | | pain | | | | | | Schizoaffec | | | tive | | | disorder | | | (HCC) | | | History | | | reviewed. | | | No | | | pertinent | | | surgical | | | history.All | | | ergies | | | Allergen | | | Reactions | | | | | | Peanut | | | Oil | | | Shortness | | | of Breath | | | and Hives | | | Prescriptio | | | ns Prior to | | | Admission | | | Medication | | | Sig | | | Dispense | | | Refill Last | | | Dose | | | | | | Acetaminoph | | | en 500 MG | | | coapsule | | | Take 1,000 | | | mg by mouth | | | 4 (four) | | | times | | | daily. | | | 09/28/2017@1 | | | 200 | | | albuterol | | | (PROVENTIL | | | | | | HFA;VENTOLI | | | N HFA) 108 | | | (90 Base) | | | MCG/ACT | | | inhaler | | | Inhale 2 | | | puffs into | | | the lungs | | | every 4 | | | (four) | | | hours as | | | needed for | | | Wheezing. | | | 09/28/2017 | | | | | | | | | budesonide | | | (PULMICORT) | | | 0.5 MG/2ML | | | nebulizer | | | suspension | | | Take 0.5 mg | | | by | | | nebulizatio | | | n 2 (two) | | | times | | | daily. | | | 09/28/2017@0 | | | 800 | | | buPROPion | | | | | | (WELLBUTRIN | | | XL) 300 MG | | | 24 hr | | | tablet Take | | | 300 mg by | | | mouth every | | | morning. | | | | | | 09/28/2017@0 | | | 800 | | | | | | dextrometho | | | rphan | | | polistirex | | | (DELSYM) 30 | | | MG/5ML ER | | | suspension | | | Take 60 mg | | | by mouth | | | every 12 | | | (twelve) | | | hours as | | | needed for | | | Cough. | | | 09/27/2017@P | | | M | | | | | | ergocalcife | | | rol | | | (DRISDOL) | | | 0[address]60 units | | | capsule | | | Take 50,000 | | | Units by | | | mouth once | | | a week. | | | 09/24/2017 | | | | | | | | | furosemide | | | (LASIX) 20 | | | MG tablet | | | Take 20 mg | | | by mouth | | | daily. | | | 09/28/2017@A | | | M | | | | | | guaifenesin | | | (MUCINEX | | | MAX) 1200 | | | MG 12hr | | | tablet Take | | | 1,200 mg | | | by mouth | | | every 6 | | | (six) hours | | | as needed. | | | | | | 09/27/2017@P | | | M | | | | | | L-methylfol | | | ate | | | (DEPLIN) 15 | | | MG tablet | | | Take 15 mg | | | by mouth | | | daily with | | | breakfast. | | | | | | 09/28/2017@0 | | | 800 | | | | | | lurasidone | | | (LATUDA) 40 | | | MG tablet | | | Take 40 mg | | | by mouth | | | daily. | | | 09/27/2017@1 | | | 700 | | | | | | Methylcobal | | | medeiros | | | (METHYL | | | B-12 PO) | | | Take 5,000 | | | mcg by | | | mouth 2 | | | (two) times | | | daily. | | | 09/28/2017@0 | | | 800 | | | | | | OLANZapine | | | (ZYPREXA) | | | 20 MG | | | tablet Take | | | 10 mg by | | | mouth 2 | | | (two) times | | | daily. | | | 09/28/2017@0 | | | 800 | | | | | | omeprazole | | | (PRILOSEC) | | | 20 MG | | | capsule | | | Take 20 mg | | | by mouth 2 | | | (two) times | | | daily. | | | 09/28/2017@A | | | M | | | oxycodone | | | (OXY-IR) 5 | | | MG capsule | | | Take 1 | | | capsule by | | | mouth every | | | 6 (six) | | | hours as | | | needed. 30 | | | capsule 0 2 | | | weeks ago | | | | | | | | | polyethylen | | | e glycol | | | (GLYCOLAX) | | | packet Take | | | 17 g by | | | mouth | | | daily. | | | 09/28/2017@0 | | | 800 | | | | | | propranolol | | | (INDERAL) | | | 20 MG | | | tablet Take | | | 20 mg by | | | mouth 2 | | | (two) times | | | daily. | | | 09/28/2017@0 | | | 800 | | | | | | sertraline | | | (ZOLOFT) | | | 100 MG | | | tablet Take | | | 50-100 mg | | | by mouth | | | See Admin | | | Instruction | | | s. Take 100 | | | mg by | | | mouth every | | | morning | | | and 50 mg | | | by mouth in | | | the | | | afternoon | | | | | | 09/28/2017@0 | | | 800 | | | | | | simvastatin | | | (ZOCOR) 40 | | | MG tablet | | | Take 40 mg | | | by mouth | | | nightly. | | | 09/27/2017@P | | | M | | | | | | topiramate | | | (TOPAMAX) | | | 25 MG | | | tablet Take | | | 25 mg by | | | mouth 2 | | | (two) times | | | daily. | | | 09/28/2017@0 | | | 700 | | | | | | umeclidiniu | | | m-vilantero | | | l (ANORO | | | ELLIPTA) | | | 62.5-25 | | | MCG/INH | | | inhaler | | | Inhale 1 | | | puff into | | | the lungs | | | daily. 1 | | | each 11 | | | 09/28/2017@0 | | | 800 | | | DISCHARGE | | | EXAMVital | | | Signs:BP | | | (BP | | | Location: | | | Left upper | | | arm) | | | | Pulse 71 | | | | Temp 98.8 | | | F (37.1 | | | C) (Oral) | | | | Resp 20 | | | | Ht | | | 1.753 m (5' | | | 9") | Wt | | | 99.7 kg | | | (219 lb | | | 12.8 oz) | | | | SpO2 91% | | | | BMI 32.46 | | | kg/m | | | Temp: | | | [97.7 F | | | (36.5 | | | C)-98.8 | | | F (37.1 | | | C)] 98.8 | | | F (37.1 | | | C) (10/01 | | | 1230)BP: | | | (101-122)/( | | | 64-75) | | | 111/68 | | | (10/01 | | | 1230)Heart | | | Rate: | | | [68-87] 71 | | | (10/01 | | | 1230)Resp: | | | [16-20] 20 | | | (10/01 | | | 1230)SpO2: | | | [91 %-95 | | | %] 91 % | | | (10/01 | | | 1230)Weight | | | : [99.7 kg | | | (219 lb | | | 12.8 oz)] | | | 99.7 kg | | | (219 lb | | | 12.8 oz) | | | (10/01 | | | 0258)Physic | | | al Exam | | | Constitutio | | | nal: He is | | | oriented to | | | person, | | | place, and | | | time. He | | | appears | | | well-develo | | | ped and | | | well-nouris | | | hed. No | | | distress. | | | HENT: Head: | | | | | | Normocephal | | | ic and | | | atraumatic. | | | Eyes: | | | Pupils are | | | equal, | | | round, and | | | reactive to | | | light. EOM | | | are | | | normal. | | | Cardiovascu | | | lar: Normal | | | rate, | | | regular | | | rhythm and | | | normal | | | heart | | | sounds. No | | | murmur | | | heard.Pulmo | | | nary/Chest: | | | No | | | respiratory | | | distress. | | | He has no | | | wheezes. | | | Coarse | | | breath | | | sounds at | | | bases but | | | with | | | adequate | | | air | | | exchange | | | Abdomina/Gl | | | : Soft. | | | Bowel | | | sounds are | | | normal. He | | | exhibits no | | | | | | distension. | | | There is | | | no | | | tenderness. | | | | | | Musculoskel | | | etal: | | | Normal | | | range of | | | motion. He | | | exhibits no | | | edema. | | | Neurologica | | | l: He is | | | alert and | | | oriented to | | | person, | | | place, and | | | time. Skin: | | | Skin is | | | warm and | | | dry. | | | DATACBC: | | | Lab Results | | | Component | | | Value Date | | | WBC 11.28 | | | (H) | | | 10/01/2017 | | | RBC 4.04 | | | (L) | | | 10/01/2017 | | | HGB 13.1 | | | (L) | | | 10/01/2017 | | | HCT 38.8 | | | (L) | | | 10/01/2017 | | | MCV 96.1 | | | 10/01/2017 | | | MCH 32.3 | | | 10/01/2017 | | | MCHC 33.6 | | | 10/01/2017 | | | RDW 48.6 | | | 10/01/2017 | | | PLT 196 | | | 10/01/2017 | | | MPV 9.9 | | | 10/01/2017 | | | DIFFTYPE | | | AUTOMATED | | | 10/01/2017 | | | CMP: Lab | | | Results | | | Component | | | Value Date | | | NA 144 | | | 10/01/2017 | | | K 3.4 (L) | | | 10/01/2017 | | | CL 107 | | | 10/01/2017 | | | CO2 26 | | | 10/01/2017 | | | ANIONGAP | | | 14 | | | 10/01/2017 | | | GLUF 106 | | | (H) | | | 10/01/2017 | | | BUN 17 | | | 10/01/2017 | | | CREATININE | | | 0.8 | | | 10/01/2017 | | | BCR 21 | | | 10/01/2017 | | | CA 8.8 | | | 10/01/2017 | | | PROT 6.8 | | | 09/30/2017 | | | ALB 2.8 | | | (L) | | | 09/30/2017 | | | GLOB 4.0 | | | 09/30/2017 | | | BILITOT | | | 0.2 | | | 09/30/2017 | | | ALP 76 | | | 09/30/2017 | | | AST 20 | | | 09/30/2017 | | | ALT 26 | | | 09/30/2017 | | | EGFR >60 | | | 10/01/2017 | | | Magnesium: | | | Lab | | | Results | | | Component | | | Value Date | | | MG 2.3 | | | 09/29/2017 | | | Phosphorus: | | | Lab | | | Results | | | Component | | | Value Date | | | PHOS 2.1 | | | (L) | | | 09/29/2017 | | | Last 3 | | | Troponin: | | | Lab Results | | | Component | | | Value Date | | | TROPONINI | | | <0.020 | | | 09/28/2017 | | | TROPONINI | | | <0.020 | | | 06/09/2017 | | | TROPONINI | | | <0.020 | | | 06/09/2017 | | | Results | | | Procedure | | | Component | | | Value Units | | | Date/Time | | | Sputum | | | culture | | | [[id number]] | | | Collected: | | | 09/29/17 | | | 0800 | | | Specimen: | | | Sputum from | | | Sputum | | | Updated: | | | 09/29/17 | | | 1513 | | | Specimen | | | Description | | | SPUTUM | | | GRAM STAIN | | | GREATER | | | THAN 10 | | | SEC/LPF | | | GRAM STAIN | | | LESS THAN | | | 10 WBCS/LPF | | | GRAM | | | STAIN 3+ | | | GRAM STAIN | | | GRAM | | | POSITIVE | | | COCCI | | | CULTURE | | | SMEAR | | | CONTAINS | | | GREATER | | | THAN 10 | | | SEC/LPF | | | SUGGESTIVE | | | OF POOR | | | QUALITY | | | SPECIMEN. | | | SPECIMEN | | | WILL NOT BE | | | CULTURED | | | OR WILL BE | | | CULTURED BY | | | SPECIAL | | | REQUEST | | | ONLY. | | | PLEASE | | | RECOLLECT | | | IF | | | CLINICALLY | | | INDICATED. | | | SPECIMEN | | | WILL BE | | | HELD 48 | | | HOURS. | | | Respiratory | | | Filmarray | | | [[id number]] | | | Collected: | | | 09/28/17 | | | 2234 | | | Specimen: | | | Nasopharyng | | | eal Culture | | | Updated: | | | 09/29/17 | | | 0337 | | | ADENOVIRUS | | | Not | | | Detected | | | CORONAVIRUS | | | 229E Not | | | Detected | | | CORONAVIRUS | | | HKU1 Not | | | Detected | | | CORONAVIRUS | | | NL63 Not | | | Detected | | | CORONAVIRUS | | | OC43 Not | | | Detected | | | HUMAN | | | METAPNEUMOV | | | IRUS Not | | | Detected | | | HUMAN | | | RHINO/ENTER | | | O Not | | | Detected | | | INFLUENZA A | | | Not | | | Detected | | | INFLUENZA B | | | Not | | | Detected | | | PARAINFLUEN | | | ZA 1 Not | | | Detected | | | PARAINFLUEN | | | ZA 2 Not | | | Detected | | | PARAINFLUEN | | | ZA 3 Not | | | Detected | | | PARAINFLUEN | | | ZA 4 Not | | | Detected | | | RESP | | | SYNCYTIAL | | | VIRUS Not | | | Detected | | | BORDETELLA | | | PERTUSSIS | | | Not | | | Detected | | | CHLAMYDIAE | | | PNEUMONIAE | | | Not | | | Detected | | | MYCOPLASMA | | | PNEUMONIAE | | | Not | | | Detected | | | RESP PANEL | | | INTERP | | | Testing | | | performed | | | by | | | Molecular | | | Methodology | | | PLAN1. | | | Return to | | | [facility]. | | | Complete | | | antibiotics | | | Disposition | | | : | | | [facility]onditio | | | n: | | | Improved/go | | | odCode | | | Status: | | | DNR/DNINo | | | discharge | | | procedures | | | on | | | file.Follow | | | up:Per Pt | | | None | | | Medication | | | List START | | | taking | | | these | | | medications | | | | | | ipratropium | | | -albuterol | | | 0.5-2.5 | | | mg/3mLQTY: | | | 360 | | | mLRefills: | | | 0Commonly | | | known as: | | | DUO-NEBEver | | | y 4 hours x | | | 5 days | | | then Q4H | | | prn for SOB | | | or | | | wheezing | | | levofloxaci | | | n 750 MG | | | tabletQTY: | | | 5 | | | tabletRefil | | | ls: | | | 0Commonly | | | known as: | | | LEVAQUINTak | | | e 1 tablet | | | by mouth | | | daily. | | | predniSONE | | | 20 MG | | | tabletQTY: | | | 6 | | | tabletRefil | | | ls: | | | 0Commonly | | | known as: | | | DELTASONETa | | | ke 2 tabs x | | | 3 days | | | then stop | | | CONTINUE | | | taking | | | these | | | medications | | | | | | Acetaminoph | | | en 500 MG | | | coapsuleRef | | | ills: 0 | | | albuterol | | | 108 (90 | | | Base) | | | MCG/ACT | | | inhalerRefi | | | lls: | | | 0Commonly | | | known as: | | | PROVENTIL | | | HFA;VENTOLI | | | N HFA | | | budesonide | | | 0.5 MG/2ML | | | nebulizer | | | suspensionR | | | efills: | | | 0Commonly | | | known as: | | | PULMICORT | | | buPROPion | | | 300 MG 24 | | | hr | | | tabletRefil | | | ls: | | | 0Commonly | | | known as: | | | WELLBUTRIN | | | XL | | | dextrometho | | | rphan | | | polistirex | | | 30 MG/5ML | | | ER | | | suspensionR | | | efills: | | | 0Commonly | | | known as: | | | DELSYM | | | ergocalcife | | | rol [id number] | | | units | | | capsuleRefi | | | lls: | | | 0Commonly | | | known as: | | | DRISDOL | | | furosemide | | | 20 MG | | | tabletRefil | | | ls: | | | 0Commonly | | | known as: | | | LASIX | | | guaifenesin | | | 1200 MG | | | 12hr | | | tabletRefil | | | ls: | | | 0Commonly | | | known as: | | | MUCINEX MAX | | | | | | L-methylfol | | | ate 15 MG | | | tabletRefil | | | ls: | | | 0Commonly | | | known as: | | | DEPLIN | | | LATUDA 40 | | | MG | | | tabletRefil | | | ls: | | | 0Generic | | | drug: | | | lurasidone | | | METHYL B-12 | | | PORefills: | | | 0 | | | OLANZapine | | | 20 MG | | | tabletRefil | | | ls: | | | 0Commonly | | | known as: | | | ZyPREXA | | | omeprazole | | | 20 MG | | | capsuleRefi | | | lls: | | | 0Commonly | | | known as: | | | PRILOSEC | | | oxycodone 5 | | | MG | | | capsuleQTY: | | | 30 | | | capsuleRefi | | | lls: | | | 0Commonly | | | known as: | | | OXY-IRTake | | | 1 capsule | | | by mouth | | | every 6 | | | (six) hours | | | as needed. | | | | | | polyethylen | | | e glycol | | | packetRefil | | | ls: | | | 0Commonly | | | known as: | | | GLYCOLAX | | | propranolol | | | 20 MG | | | tabletRefil | | | ls: | | | 0Commonly | | | known as: | | | INDERAL | | | sertraline | | | 100 MG | | | tabletRefil | | | ls: | | | 0Commonly | | | known as: | | | ZOLOFT | | | simvastatin | | | 40 MG | | | tabletRefil | | | ls: | | | 0Commonly | | | known as: | | | ZOCOR | | | topiramate | | | 25 MG | | | tabletRefil | | | ls: | | | 0Commonly | | | known as: | | | TOPAMAX | | | umeclidiniu | | | m-vilantero | | | l 62.5-25 | | | MCG/INH | | | inhalerQTY: | | | 1 | | | eachRefills | | | : 11For | | | diagnoses: | | | Asthma | | | with COPD | | | (chronic | | | obstructive | | | pulmonary | | | disease)Com | | | monly known | | | as: ANORO | | | | | | ELLIPTAInha | | | le 1 puff | | | into the | | | lungs | | | daily. You | | | might also | | | be taking | | | other | | | medications | | | not listed | | | above. If | | | you have | | | questions | | | about any | | | of your | | | other | | | medications | | | , talk to | | | the person | | | who | | | prescribed | | | them or | | | your | | | Primary | | | Care | | | Provider. | | | Where to | | | Get Your | | | Medications | | | These | | | medications | | | were sent | | | to | | | [facility] | | | - | | | [place], | | | [place] - [address], | | | [facility] | | | [place] [address] | | | Phone: | | | [phone] | | | 2 | | | levofloxaci | | | n 750 MG | | | tablet You | | | can get | | | these | | | medications | | | from any | | | pharmacy | | | Bring a | | | paper | | | prescriptio | | | n for each | | | of these | | | medications | | | | | | ipratropium | | | -albuterol | | | 0.5-2.5 | | | mg/3mL | | | predniSONE | | | 20 MG | | | tablet | | | Discharge | | | took >30 | | | minutes, to | | | include | | | final | | | examination | | | , | | | discussion | | | of | | | admission, | | | and | | | preparation | | | of | | | prescriptio | | | ns, | | | instruction | | | s for | | | on-going | | | care, | | | follow-up | | | and | | | documentati | | | on of | | | discharge | | | summary.Sidra | | | h Idalia, | | | MD10/01/2017 | +---+ + +--------+ +---+ + + | 09/27/ | Office | | Guero, | Asthma with COPD | | 2017 | Visit | | Luzmaria Jimenez, | (chronic obstructive | | | | | MD | pulmonary disease) | | | | | | (HCC) (Primary Dx); | | | | | | Nocturnal hypoxemia; | | | | | | Multiple pulmonary | | | | | | nodules; JONEL | | | | | | (obstructive sleep | | | | | | apnea); Personal | | | | | | history of tobacco | | | | | | use, presenting | | | | | | hazards to health | +--------+ +---+ + + | 08/28/ | Emergency | | Ivan Ann DO | Lymphedema (Primary | | 2017 | | | | Dx); Generalized | | | | | | weakness | +--------+ +---+ + + from Last 3 Months Immunizations + + + + | Name | Dates Previously Given | Next Due | + + + + | Pneumococcal | 02/21/2010 | | | Polysaccharide | | | | 23-valent | | | + + + + Family History + + +------+ + | Medical History | Relation | Name | Comments | + + +------+ + | Heart attack | Father | | | + + +------+ + | Alzheimer's disease | Mother | | | + + +------+ + | Cancer | Mother | | | + + +------+ + + +------+ + + | Relation | Name | Status | Comments | + +------+ + + | Father | | | | + +------+ + + | Mother | | | | + +------+ + + Social History + +-------+ +--------+ [...] | | | + +---+---+---+ + + | Tobacco Cessation: Counseling Given: No | + + + + +---------+ + | Alcohol Use | Drinks/We | oz/Week | Comments | | | ek | | | + + +---------+ + | No | | | | + + +---------+ + + + + | Sex Assigned at | Date Recorded | | | | + + + | Not on file | | + + + Last Filed Vital Signs + + + + | Vital Sign | Reading | Time Taken | + + + + | Blood Pressure | 128/80 | 11/18/2017 4:32 PM PDT | + + + + | Pulse | 88 | 11/18/2017 4:32 PM PDT | + + + + | Temperature | 36.7 C (98 F) | 11/18/2017 3:10 PM PDT | + + + + | Respiratory Rate | 20 | 11/18/2017 4:32 PM PDT | + + + + | Oxygen Saturation | 96% | 11/18/2017 4:32 PM PDT | + + + + | Inhaled Oxygen | - | - | | Concentration | | | + + + + | Weight | 98.9 kg (218 lb 0.6 | 11/18/2017 2:02 PM PDT | | | oz) | | + + + + | Height | 175.3 cm (5' 9") | 09/28/2017 8:00 PM PDT | + + + + | Body Mass Index | 32.2 | 11/18/2017 2:02 PM PDT | + + + + Plan of Treatment +--------+---------+ + + + | Date | Type | Specialty | Care Team | Description | +--------+---------+ + + + | 12/21/ | Office | | Guero, | | | 2018 | Visit | | Luzmaria Jimenez, | | | | | | MD [address] | | | | | | [place] [address] | | | | | | [phone] | | | | | | | | +--------+---------+ + + + Procedures + +--------+ + + + | Procedure Name | Priori | Date/Time | Associated Diagnosis | Comments | | | ty | | | | + +--------+ + + + | XR LUMBAR SPINE | MICHELE | 11/18/2017 | | Results for this | | LIMITED 2-3 VIEW | | 3:10 PM | | procedure are in the | | | | PDT | | results section. | + +--------+ + + + | XR CHEST 2 VIEW | MICHELE | 11/18/2017 | | Results for this | | FRONTAL AND LATERAL | | 3:09 PM | | procedure are in the | | | | PDT | | results section. | + +--------+ + + + | XR SACRUM AND COCCYX | MICHELE | 11/18/2017 | | Results for this | | | | 3:09 PM | | procedure are in the | | | | PDT | | results section. | + +--------+ + + + | URINALYSIS (REFLEX | STAT | 11/18/2017 | | Results for this | | TO | | 2:48 PM | | procedure are in the | | MICROSCOPIC/REFLEX | | PDT | | results section. | | TO CULTURE) | | | | | + +--------+ + + + | BLOOD CULTURE, SET 2 | STAT | 11/18/2017 | | | | | | 2:42 PM | | | | | | PDT | | | + +--------+ + + + | TROPONIN I | STAT | 11/18/2017 | | Results for this | | | | 2:35 PM | | procedure are in the | | | | PDT | | results section. | + +--------+ + + + | [facility] SEPTIC LACTIC | STAT | 11/18/2017 | | Results for this | | ACID | | 2:35 PM | | procedure are in the | | | | PDT | | results section. | + +--------+ + + + | COMPREHENSIVE | STAT | 11/18/2017 | | Results for this | | METABOLIC PANEL | | 2:35 PM | | procedure are in the | | | | PDT | | results section. | + +--------+ + + + | CBC W/AUTO DIFF | STAT | 11/18/2017 | | Results for this | | (REFLEX TO MANUAL) | | 2:35 PM | | procedure are in the | | | | PDT | | results section. | + +--------+ + + + | BLOOD CULTURE, SET 1 | STAT | 11/18/2017 | | | | | | 2:35 PM | | | | | | PDT | | | + +--------+ + + + | EKG 12 LEAD UNIT | Routin | 11/18/2017 | | Results for this | | PERFORMED | e | 2:33 PM | | procedure are in the | | | | PDT | | results section. | + +--------+ + + + | NEBULIZER/INHALATION | STAT | 11/18/2017 | | | | TREATMENT | | 2:30 PM | | | | | | PDT | | | + +--------+ + + + | ED INFORMATION | Routin | 11/18/2017 | | Results for this | | EXCHANGE | e | 1:59 PM | | procedure are in the [...] | + +--------+ + + + | [facility] | STAT | 09/28/2017 | | [...] | + +--------+ + + + | [facility] CARD PANEL W/O | STAT | 09/28/2017 [...] + + | US LOWER EXTREMITY | MICHELE | 08/28/2017 | | Results for this | | VENOUS DOPPLER RIGHT | | 6:30 PM | | procedure are in the | | | | PDT | | results section. | + +--------+ + + + | XR CHEST 2 VIEW | STAT | 08/28/2017 | | Results for this | | FRONTAL AND LATERAL | | 5:29 PM | | procedure are in the | | | | PDT | | results section. | + +--------+ + + + | POC CARDIAC TROPONIN | Routin | 08/28/2017 | | Results for this | | | e | 5:05 PM | | procedure are in the | | | | PDT | | results section. | + +--------+ + + + | BRAIN NATRIURETIC | STAT | 08/28/2017 | | Results for this | | PEPTIDE | | 4:50 PM | | procedure are in the | | | | PDT | | results section. | + +--------+ + + + | [facility] CARD PANEL W/O | STAT | 08/28/2017 | | Results for this | | TRP (ED ONLY) | | 4:50 PM | | procedure are in the | | | | PDT | | results section. | + +--------+ + + + | EKG 12 LEAD UNIT | STAT | 08/28/2017 | | Results for this | | PERFORMED | | 4:47 PM | | procedure are in the | | | | PDT | | results section. | + +--------+ + + + | URINALYSIS (REFLEX | STAT | 08/28/2017 | | Results for this | | TO | | 4:01 PM | | procedure are in the | | MICROSCOPIC/REFLEX | | PDT | | results section. | | TO CULTURE) | | | | | + +--------+ + + + from Last 3 Months Results XR Lumbar Spine 3 View (11/18/2017 3:10 PM) + + + | Impressions | Performed At | + + + | 1. Lumbar spine: Mild compression of the superior endplate of L1 | [facility] | | of approximately 20%, age indeterminate with mild spondylotic changes | [facility] | | of the spine. 2. No evidence of sacrococcygeal fracture. | | | | | + + + + + + | Narrative | Performed At | + + + | HISTORY: Sacrococcygeal injury. Lumbar spine injury. Fall. | [facility] | | COMPARISON: None. TECHNIQUE: AP, lateral films of the lumbar | [facility] | | spine. AP, angled AP, lateral films of the sacrum and coccyx. | | | FINDINGS: Lumbar spine: Mild diffuse osteopenia. Compression of the | | | superior endplate of L1 of approximately 10-20%, age indeterminate. | | | Coil in the right paraspinal T12 level. Mild L5-S1, L4-L5 degenerative | | | facet changes. Sacrum: SI joints unremarkable. No definable | | | sacral or coccygeal fracture. Oval density in the low pelvis probably | | | represents partially distended urinary bladder. | | + + + + + | Procedure Note | + + | ChapitoChad fishman In - 11/18/2017 3:42 PM PDT HISTORY:Sacrococcygeal injury. Lumbar | | spine injury. Fall.COMPARISON:None.TECHNIQUE:AP, lateral films of the lumbar spine.AP, | | angled AP, lateral films of the sacrum and coccyx.FINDINGS:Lumbar spine:Mild diffuse | | osteopenia. Compression of the superior endplate of L1 of approximately 10-20%, age | | indeterminate. Coil in the right paraspinal T12 level. Mild L5-S1, L4-L5 degenerative | | facet changes.Sacrum:SI joints unremarkable. No definable sacral or coccygeal fracture. | | Oval density in the low pelvis probably represents partially distended urinary | | bladder.IMPRESSION:1. Lumbar spine: Mild compression of the superior endplate of L1 of | | approximately 20%, age indeterminate with mild spondylotic changes of the spine.2. No | | evidence of sacrococcygeal fracture.Electronically signed by Anjum Seay MD on | | 11/18/2017 3:37 PM | |Lumbar spine: | |Mild diffuse osteopenia. Compression of the superior endplate of L1 of approximately 10-20% , age indeterminate. Coil in the right paraspinal T12 level. Mild L5-S1, L4-L5 degenerative facet changes. | | | |Sacrum: | |SI joints unremarkable. No definable sacral or coccygeal fracture. Oval density in the low pelvis probably represents partially distended urinary bladder. | | | |IMPRESSION: | |1. Lumbar spine: Mild compression of the superior endplate of L1 of approximately 20%, age indeterminate with mild spondylotic changes of the spine. | |2. No evidence of sacrococcygeal fracture. | | | | | + + + + + + + | Performing | Address | City/State/Zipcode | Phone Number | | Organization | | | | + + + + + | [facility] | [address] | [place] [address] | | + + + + + XR Chest PA and Lateral (11/18/2017 3:09 PM)Only the most recent of 3 results within the period is included. + + + | Impressions | Performed At | + + + | 1. Mild bilateral perihilar and bibasilar atelectasis. | [facility] | | 2. Distention of the stomach. | | + + + + + + | Narrative | Performed At | + + + | HISTORY: Cough. Congestion. Question pneumonia. COMPARISON: | [facility] | | 09/28/17. TECHNIQUE: AP and lateral films of the chest. | [facility] | | FINDINGS: Heart size is normal. Mild ectasia and tortuosity of the | | | thoracic aorta. Minimal strandy change in both lung bases along the | | | hemidiaphragms consistent with atelectasis. Subtle bilateral perihilar | | | atelectasis. No infiltrates. No effusions. Mild degenerative changes | | | of the spine. Distention of the stomach. | | + + + + + | Procedure Note | + + | Chapito, Rad Results In - 11/18/2017 3:40 PM PDT HISTORY:Cough. Congestion. Question | | pneumonia.COMPARISON:09/28/17.TECHNIQUE:AP and lateral films of the chest.FINDINGS:Heart | | size is normal. Mild ectasia and tortuosity of the thoracic aorta. Minimal strandy | | change in both lung bases along the hemidiaphragms consistent with atelectasis. Subtle | | bilateral perihilar atelectasis. No infiltrates. No effusions. Mild degenerative changes | | of the spine. Distention of the stomach.IMPRESSION:1. Mild bilateral perihilar and | | bibasilar atelectasis.2. Distention of the stomach. | | | |FINDINGS: | |Heart size is normal. Mild ectasia and tortuosity of the thoracic aorta. Minimal strandy ch tika in both lung bases along the hemidiaphragms consistent with atelectasis. Subtle bilater al perihilar atelectasis. No | |infiltrates. No effusions. Mild degenerative changes of the spine. Distention of the stomac h. | | | |IMPRESSION: | |1. Mild bilateral perihilar and bibasilar atelectasis. | |2. Distention of the stomach. | | | | | + + + + + + + | Performing | Address | City/State/Zipcode | Phone Number | | Organization | | | | + + + + + | [facility] | [address] | [place] [address] | | + + + + + XR Sacrum and Coccyx (11/18/2017 3:09 PM) + + + | Impressions | Performed At | + + + | 1. Lumbar spine: Mild compression of the superior endplate of L1 | [facility] | | of approximately 20%, age indeterminate with mild spondylotic changes | [facility] | | of the spine. 2. No evidence of sacrococcygeal fracture. | | | | | + + + + + + | Narrative | Performed At | + + + | HISTORY: Sacrococcygeal injury. Lumbar spine injury. Fall. | [facility] | | COMPARISON: None. TECHNIQUE: AP, lateral films of the lumbar | [facility] | | spine. AP, angled AP, lateral films of the sacrum and coccyx. | | | FINDINGS: Lumbar spine: Mild diffuse osteopenia. Compression of the | | | superior endplate of L1 of approximately 10-20%, age indeterminate. | | | Coil in the right paraspinal T12 level. Mild L5-S1, L4-L5 degenerative | | | facet changes. Sacrum: SI joints unremarkable. No definable | | | sacral or coccygeal fracture. Oval density in the low pelvis probably | | | represents partially distended urinary bladder. | | + + + + + | Procedure Note | + + | Chapito, Rad Results In - 11/18/2017 3:42 PM PDT HISTORY:Sacrococcygeal injury. Lumbar | | spine injury. Fall.COMPARISON:None.TECHNIQUE:AP, lateral films of the lumbar spine.AP, | | angled AP, lateral films of the sacrum and coccyx.FINDINGS:Lumbar spine:Mild diffuse | | osteopenia. Compression of the superior endplate of L1 of approximately 10-20%, age | | indeterminate. Coil in the right paraspinal T12 level. Mild L5-S1, L4-L5 degenerative | | facet changes.Sacrum:SI joints unremarkable. No definable sacral or coccygeal fracture. | | Oval density in the low pelvis probably represents partially distended urinary | | bladder.IMPRESSION:1. Lumbar spine: Mild compression of the superior endplate of L1 of | | approximately 20%, age indeterminate with mild spondylotic changes of the spine.2. No | | evidence of sacrococcygeal fracture.Electronically signed by Anjum Seay MD on | | 11/18/2017 3:37 PM | |Lumbar spine: | |Mild diffuse osteopenia. Compression of the superior endplate of L1 of approximately 10-20% , age indeterminate. Coil in the right paraspinal T12 level. Mild L5-S1, L4-L5 degenerative facet changes. | | | |Sacrum: | |SI joints unremarkable. No definable sacral or coccygeal fracture. Oval density in the low pelvis probably represents partially distended urinary bladder. | | | |IMPRESSION: | |1. Lumbar spine: Mild compression of the superior endplate of L1 of approximately 20%, age indeterminate with mild spondylotic changes of the spine. | |2. No evidence of sacrococcygeal fracture. | | | | | + + + + + + + | Performing | Address | City/State/Zipcode | Phone Number | | Organization | | | | + + + + + | [facility] | [address] | [place] [address] | | + + + + + Urinalysis (reflex to micro/reflex to culture) (11/18/2017 2:48 PM)Only the most recent of 2 results within the time period is included. + + + + + | Component | Value | Ref Range | Performed At | + + + + + | COLOR UA | YELLOW | | [facility] | + + + + + | CLARITY | HAZY | | [facility] | + + + + + | Specific Potter, UA | 1.013 | 1.002 - 1.030 | [facility] | + + + + + | LEUKOCYTE ESTERASE | NEGATIVE | NEGATIVE | [facility] | + + + + + | NITRITE | NEGATIVE | NEGATIVE | [facility] | + + + + + | UROBILINOGEN | NORMAL | <1.1 mg/dL | [facility] | + + + + + | PROTEIN | NEGATIVE | NEGATIVE mg/dL | [facility] | + + + + + | PH,URINE | 7.0 | 5.0 - 8.0 | [facility] | + + + + + | BLOOD | NEGATIVE | NEGATIVE | [facility] | + + + + + | KETONES | NEGATIVE | NEGATIVE mg/dL | [facility] | + + + + + | BILIRUBIN | NEGATIVE | NEGATIVE | [facility] | + + + + + | GLUCOSE | NEGATIVEComment: Testing | NEGATIVE mg/dL | [facility] | | | performed at [facility];[address] | | | | [address];[place] | | | | | [address] | | | + + + + + + + | Specimen | + + | Urine, Clean Catch | + + + + + + + | Performing | Address | City/State/Zipcode | Phone Number | | Organization | | | | + + + + + | [facility] | [address] | [place] [address] | | + + + + + Septic Lactic Acid (11/18/2017 2:35 PM)Only the most recent of 2 results within the time p mazin is included. + + + + + | Component | Value | Ref Range | Performed At | + + + + + | LACTIC ACID | 1.3Comment: Testing | 0.4 - 2.0 mmol/L | [facility] | | | performed at [facility];[address];[place] | | | | | [address] | | | + + + + + + + + + + | Performing | Address | City/State/Zipcode | Phone Number | | Organization | | | | + + + + + | [facility] | [address] | [place] [address] | | + + + + + Troponin I, Lab (11/18/2017 2:35 PM)Only the most recent of 2 results within the time sujit od is included. + + + + + | Component | Value | Ref Range | Performed At | + + + + + | TROPONIN I | <0.020Comment: 0.00 to | 0.00 - 0.10 ng/mL | [facility] | | | 0.10 CONSISTENT | [...] | | | | CRITERIA FOR ACUTE ME | | | | | Testing performed at | | | | | [facility];[address] | | | | | [place] [address] | | | + + + + + + + | Specimen | + + | Blood | + + + + + + + | Performing | Address | City/State/Zipcode | Phone Number | | Organization | | | | + + + + + | [facility] | [address] | [place] [address] | | + + + + + CBC with differential (11/18/2017 2:35 PM)Only the most recent of 4 results within the period is included. + + + + + | Component | Value | Ref Range | Performed At | + + + + + | WBC | 9.14 | 3.80 - 11.00 K/uL | [facility] | + + + + + | RBC | 4.42 | 4.20 - 5.70 M/uL | [facility] | + + + + + | HGB | 14.0 | 13.2 - 17.0 g/dL | [facility] | + + + + + | HCT | 42.5 | 39.0 - 50.0 % | [facility] | + + + + + | MCV | 96.1 | 80.0 - 100.0 fl | [facility] | + + + + + | MCH | 31.6 | 27.0 - 34.0 pg | [facility] | + + + + + | MCHC | 32.9 | 32.0 - 35.5 g/dL | [facility] | + + + + + | RDW SD | 45.5 | 37 - 53 fl | [facility] | + + + + + | PLT | 317 | 150 - 400 K/uL | [facility] | + + + + + | MPV | 8.6 | fl | [facility] | + + + + + | DIFF TYPE | AUTOMATED | | [facility] | + + + + + | NEUTROPHILS | 80.59 | % | [facility] | + + + + + | LYMPHOCYTES | 11.41 | % | [facility] | + + + + + | MONOCYTES | 5.80 | % | [facility] | + + + + + | EOSINOPHILS | 1.45 | % | [facility] | + + + + + | BASOPHILS | 0.75 | % | [facility] | + + + + + | NEUTROPHILS ABS | 7.36 | 1.90 - 7.40 K/uL | [facility] | + + + + + | LYMPHOCYTES ABS | 1.04 | 1.00 - 3.90 K/uL | [facility] | + + + + + | MONOCYTES ABS | 0.53 | 0.00 - 0.80 K/uL | [facility] | + + + + + | EOSINOPHILS ABS | 0.13 | 0.00 - 0.50 K/uL | [facility] | + + + + + | BASOPHILS ABS | 0.07Comment: Testing | 0.00 - 0.10 K/uL | [facility] | | | performed at [facility] | | | | | [address];[place] | | | | | [address] | | | + + + + + + + | Specimen | + + | Blood | + + + + + + + | Performing | Address | City/State/Zipcode | Phone Number | | Organization | | | | + + + + + | [facility] | [address] | [place] [address] | | + + + + + Comprehensive metabolic panel (11/18/2017 2:35 PM)Only the most recent of 4 results within the time period is included. + + + + + | Component | Value | Ref Range | Performed At | + + + + + | SODIUM | 140 | 135 - 145 mmol/L | [facility] | + + + + + | POTASSIUM | 3.8 | 3.5 - 4.9 mmol/L | [facility] | + + + + + | CHLORIDE | 106 | 99 - 109 mmol/L | [facility] | + + + + + | CO2 | 28 | 23 - 32 mmol/L | [facility] | + + + + + | ANION GAP AGAP | 10 | 5 - 20 mmol/L | [facility] | + + + + + | GLUCOSE | 149 (H) | 65 - 99 mg/dL | [facility] | + + + + + | BUN | 14 | 8 - 25 mg/dL | [facility] | + + + + + | CREATININE | 0.84 | 0.70 - 1.30 mg/dL | [facility] | + + + + + | BUN/CREAT | 17 | | [facility] | + + + + + | CALCIUM | 8.3 (L) | 8.5 - 10.5 mg/dL | [facility] | + + + + + | TOTAL PROTEIN | 7.1 | 6.3 - 8.2 g/dL | [facility] | + + + + + | Albumin | 3.1 (L) | 3.3 - 4.8 g/dL | [facility] | + + + + + | GLOBULIN | 4.1 | 1.3 - 4.9 g/dL | [facility] | + + + + + | A/G | 0.8 (L) | 1.0 - 2.4 | [facility] | + + + + + | TBIL | 0.3 | 0.1 - 1.5 mg/dL | [facility] | + + + + + | ALK PHOS | 80 | 35 - 115 U/L | [facility] | + + + + + | AST | 19 | 10 - 45 U/L | [facility] | + + + + + | ALT | 25 | 10 - 65 U/L | [facility] | + + + + + | EGFR | >60Comment: GFR <60: | >60 mL/min/1.73m2 | [facility] | | | CHRONIC KIDNEY DISEASE, [...] the | | | | | MDRD MAMS traceable | | | | | equation.Testing | | | | | performed at [facility] | | | | | [facility];[place], [place] | | | | | [id number] | | | + + + + + + + | Specimen | + + | Blood | + + + + + + + | Performing | Address | City/State/Zipcode | Phone Number | | Organization | | | | + + + + + | [facility] | [address] | [place] [address] | | + + + + + EKG 12 LEAD UNIT PERFORMED (11/18/2017 2:33 PM)Only the most recent of 3 results within e time period is included. + + + + + | Component | Value | Ref Range | Performed At | + + + + + | Ventricular Rate | 90 | BPM | [facility] | + + + + + | Atrial Rate | 90 | BPM | [facility] | + + + + + | P-R Interval | 152 | ms | [facility] | + + + + + | QRS Duration | 80 | ms | [facility] | + + + + + | Q-T Interval | 354 | ms | [facility] | + + + + + | QTC Calculation | 433 | ms | [facility] | | (Georgina) | | | | + + + + + | Calculated P Shellman | 46 | degrees | [facility] | + + + + + | Calculated R Shellman | 25 | degrees | [facility] | + + + + + | Calculated T Shellman | 40 | degrees | [facility] | + + + + + | Diagnosis | Normal sinus | | [facility] | | | rhythmNormal ECGWhen | | | | | compared with ECG of | | | | | 28-SEP-2017 17:31,No | | | | | significant change [...] | | | | | ONLY, -COMPUTER ([id number]), | | | | | editor greeting card Keara Beckwith | | | | | ([id number]) on 11/19/2017 | | | | | 2:52:05 AM | | | + + + + + + + + + + | Performing | Address | City/State/Zipcode | Phone Number | | Organization | | | | + + + + + | [facility] | [address] | [place] [address] | | + + + + + ED INFORMATION EXCHANGE (11/18/2017 1:59 PM)Only the most recent of 2 results within the t rin period is included. + + + | Narrative | Performed At | + + + | [id number] [id number] This patient has registered at the | ED | | [facility] Emergency Department For more | INFORMATION | | information visit: | EXCHANGE | | [email or web address] | | | [id number] Security Events No recent Security Events currently on file | | | ED Care Guidelines from [facility] Last Updated: 08/29/17 | | | 9:04 AM Additional Information: Currently placed at [facility] | | | Care [facility] Adult [facility], please contact Glo | | | [place] [phone].Prescription medication goes through [facility], | | | [phone]. These are guidelines and the provider should exercise | | | clinical judgment when providing care. Recent Emergency Department | | | Visit Summary Admit Date Facility City State Type Major Type | | | Diagnoses or Chief Complaint [facility] Emergency Emergency increased confusion, | | | dizziness, weakness, and coughing. pt has UTI, MRSA, and recent hx of | | | pneumonia Nov 09, 2017 [facility] [place] | | | Emergency Emergency Chief Complaint: URO MALE Sep 28[facility] 2017 | [facility] | | | Weakness Shortness of Breath Chronic obstructive | | | pulmonary disease with (acute) exacerbation Other forms of | | | dyspnea Aug [facility] 2017 [facility] | | | Emergency Emergency Shortness of Breath Weakness | | | Lymphedema, not elsewhere classified E.D. Visit Count | | | (12 mo.) Facility Visits Low Acuity [facility] | | | System 1 0 [facility] 4 0 Total 5 0 Note: | | | Visits indicate total known visits. Medicaid Low Acuity Dx are the | | | number of primary diagnoses on the Medicaid's Low Acuity dx list. | | | Recent Inpatient Visit Summary Admit Date [facility] City State | | | Type Major Type Diagnoses or Chief Complaint Sep 28, 2017 [facility] | | | [facility] Medicine Inpatient Other | | | forms of dyspnea Chronic obstructive pulmonary disease with | | | (acute) exacerbation Hypoxemia Other specified soft | | | tissue disorders PDMP Report PDMP query found no report. | | | Care Providers Provider PRC Type Phone Fax Service Dates LUCERO, | | | EULALIO AVILA Physician [facility] [employer] | | | Current ALYSSA Stevens Messenger Copy ([phone] | | | [phone] Current [facility] | | | Health Provider Current Known Aliases No | | | known aliases. Criteria met Care Guidelines The above | | | information is provided for the sole purpose of patient treatment. Use | | | of this information beyond the terms of Data Sharing Memorandum of | | | Understanding and License Agreement is prohibited. In certain cases | | | not all visits may be represented. Consult the aforementioned | | | facilities for additional information. 2018 [employer] | | | [employer] - [place], [place] - | | | [email or web address] | | + + + + + | Procedure Note | + + | Interface, Lab - 11/18/2017 2:00 PM PDT Formatting of this note may be different | | from the original.CHRISTOFERIE13:55CASSIUS [id number] patient has registered at the [facility] | | [facility] Emergency Department For more information visit: | | [email or web address] Security | | EventsNo recent Security Events currently on fileED Care Guidelines from [employer] - | | [place] Updated: 08/29/17 9:04 AM Additional Information:Currently placed at | | [facility], please contact Glo [place] | | [phone].Prescription medication goes through [facility], .These are | | guidelines and the provider should exercise clinical judgment when providing care.Recent | | Emergency Department Visit SummaryAdmit Date Facility [facility] Major Type | | Diagnoses or Chief Complaint Nov 18, 2017 [facility] Emergency | | Emergency increased confusion, dizziness, weakness, and coughing. pt has UTI, MRSA, | | and recent hx of pneumonia Nov 09, 2017 [facility] [place] | | Emergency Emergency Chief Complaint: URO MALE Sep 28, 2017 [facility] | | [facility] Emergency Emergency Weakness Shortness of Breath Chronic obstructive | | pulmonary disease with (acute) exacerbation Other forms of dyspnea Aug 28, 2017 | | State [facility] Emergency Emergency Shortness of Breath Weakness | | Lymphedema, not elsewhere classified E.D. Visit Count (12 mo.)Facility Visits Low | | Acuity [facility] 1 0 [facility] 4 0 Total 5 0 | | Note: Visits indicate total known visits. Medicaid Low Acuity Dx are the number of | | primary diagnoses on the Medicaid's Low Acuity dx list. Recent Inpatient Visit | | SummaryAdmit Date Facility [facility] Type Major Type Diagnoses or Chief Complaint Sep | | 2017 [facility] facility General Medicine Inpatient Other forms of | | dyspnea Chronic obstructive pulmonary disease with (acute) exacerbation Hypoxemia | | Other specified soft tissue disorders PDMP ReportPDMP query found no report.Care | | ProvidersProvider [facility] Type Phone Fax Service Dates LEAH MOTTA PA Physician | | [employer] Current ALYSSA Stevens Social | | Worker Current [facility] | | Provider Current Known AliasesNo known aliases. Criteria met Care | | GuidelinesThe above information is provided for the sole purpose of patient treatment. | | Use of this information beyond the terms of Data Sharing Memorandum of Understanding and | | License Agreement is prohibited. In certain cases not all visits may be represented. | | Consult the aforementioned facilities for additional information. 2018 [employer] | | [employer] [place], [place] - [email or web address] | |E.D. Visit Count (12 mo.) | |Facility Visits Low Acuity | |[facility] 1 0 | |[facility] 4 0 | |Total 5 0 | |Note: Visits indicate total known visits. Medicaid Low Acuity Dx are the number of primary diagnoses on the Medicaid's Low Acuity dx list. | | | |Recent Inpatient Visit Summary | |Admit Date Facility [facility] State Type Major Type Diagnoses or Chief Complaint | |Sep 28, [facility] General Medicine Inpatient | | Other forms of dyspnea | | Chronic obstructive pulmonary disease with (acute) exacerbation | | Hypoxemia | | Other specified soft tissue disorders | | | | | | | |PDMP Report | |PDMP query found no report. | | | |Care Providers | |Provider PRC Type Phone Fax Service Dates | |LEAH MOTTA PA Physician [facility] [employer] Current | |ALYSSA Stevens Messenger Copy Current | |[facility] Health Provider Current | | | |Known Aliases [...] aforementioned facilities for additional information. | |2018 [email or web address] - [place], [place] - [email or web address] | + + + +---------+ + + | Performing | Address | City/State/Zipcode | Phone Number | | Organization | | | | + +---------+ + + | ED INFORMATION | | | | | EXCHANGE | | | | + +---------+ + + PROCALCITONIN (10/01/2017 4:25 AM)Only the most recent of 2 results within the time period is included. + + + + + | Component | Value | Ref Range | Performed At | + + + + + | PROCALCITONIN | 0.15Comment: | <0.5 ng/mL | [facility] | | | INTERPRETIVE | | [...] performed | | | | | at [facility];[address] | | | | | [place] [address] | | | + + + + + + + + + + | Performing | Address | City/State/Zipcode | Phone Number | | Organization | | | | + + + + + | [facility] | [address] | [place] [address] | | + + + + + [...] 8.8 | 8.5 - 10.5 mg/dL | [facility] [...] the | | | | | MDRD [facility] traceable | | | | | equation.Testing | | | | | performed at [facility], [address] | | | | | [facility], | | | | | [place] [address] | | | + + + + + + + | Specimen | + + | Blood | + + + + + + + | Performing | Address | City/State/Zipcode | Phone Number | | Organization | | | | + + + + + | [facility] | [address] | [place] [address] | [phone] | | LABORATORY | [address]vd[address] | | [...] + + + | [facility] | [address] | [place] [address] | [phone] | | LABORATORY | Blvd. | | | + + + + + Phosphorus (09/29/2017 4:47 AM) + + + + + | Component | Value | Ref Range | Performed At | + + + + + | PHOSPHORUS | 2.1 (L)Comment: Testing | 2.3 - 4.8 mg/dL | [facility] | | | performed at [facility], [address] | | LABORATORY | | | [address], | | | | | [place] [address] | | | + + + + + + + | Specimen | + + | Blood | + + + + + + + | Performing | Address | City/State/Zipcode | Phone Number | | Organization | | | | + + + + + | [facility] | [address] | [place] [address] | [phone] | | LABORATORY | Blvd. | | | + + + + + Magnesium (09/29/2017 4:47 AM) + + + + + | Component | Value | Ref Range | Performed At | + + + + + | MAGNESIUM | 2.3Comment: Testing | 1.7 - 2.4 mg/dL | [facility] | | | performed at [facility], [address] | | LABORATORY | | | [facility], | | | | | [place] [address] | | | + + + + + + + | Specimen | + + | Blood | + + + + + + + | Performing | Address | City/State/Zipcode | Phone Number | | Organization | | | | + + + + + | [facility] | [address] | [place] [address] | [phone] | | LABORATORY | Blvd. | | [...] 12:56AM Referring Provider Line: | | | [phone] ID: [id number] | | + + + + + + | Narrative | Performed At | + + + | EXAM: CT ANGIOGRAM CHEST EXAM DATE: 09/28/2017 11:45 PM. | [facility] | | CLINICAL HISTORY: Hypoxemia. Dyspnea. COPD. [...] Sep 29 2017 12:56AM Referring Provider Line: [phone] ID: [id number] | | | |Mediastinum: Heart [...] 29 2017 12:56AM Referring Provider Line: [phone] ID: [id number] | + + + + + + + | Performing | Address | City/State/Zipcode | Phone Number | | Organization | | | | + + + + + | [facility] | [address] | [place] [address] | | + + + + + POC Arterial Blood Gas (09/28/2017 11:11 PM)Only the most recent of 2 results within the ti ga period is included. + + + + + | Component | Value | Ref Range | Performed At | + + + + + | pH, Art | 7.341 (L) | 7.350 - 7.450 | [facility] | + + + + + | POC PCO2 | 42 | 35 - 45 mmHg | [facility] | + + + + + | POC p02 | 93 | 80 - 105 mmHg | [facility] | + + + + + | POC HCO3 | 23 | 22 - 26 mmol/L | [facility] | + + + + + | POC TCO2 | 24 | 23 - 27 mEq/L | [facility] | + + + + + | POC BASE DEFICIT | 3 (H) | 0.0 - 2.0 mmol/L | [facility] | + + + + + | POC S02 | 97 | 95 - 98 % | [facility] | + + + + + | POC COMMENTS | Christian Test not | | [facility] | | | indicatedComment: Site = | | | | | right radialTesting | | | | | performed at [facility];[address] | | | | | [address];[place] | | | | | [address] | | | + + + + + + + + + + | Performing | Address | City/State/Zipcode | Phone Number | | Organization | | | | + + + + + | [facility] | [address] | [place] [address] | | + + + + + [...] performed at | | | | | [facility], [address] | | | | | [place] | | | | | [address] | | | + + + + + + + | Specimen | + + | Nasopharyngeal | | Culture | + + + + + + + | Performing | Address | City/State/Zipcode | Phone Number | | Organization | | | | + + + + + | [facility] | [address] | [place] [address] | [phone] | | LABORATORY | Blvd. | | | + + + + + US Lower extremity venous doppler bilateral (09/28/2017 9:50 PM) + + + | Impressions | Performed At | + + + | 1. No evidence of lower extremity deep vein thrombosis. | [facility] | | | RADIOLOGY | + + + + + + | Narrative | Performed At | + + + | [facility] LOWER EXTREMITY VENOUS DOPPLER BILAT | [facility] | | 09/28/2017 9:16 PM HISTORY: 67 [...] | [place], Rad Results In - 09/28/2017 9:53 PM PDT [...] | + + + + + | [facility] | [address] | [place] [address] | | + + + + + NEVIN SZYMANSKI (09/28/2017 8:09 PM) + + + + [...] performed at | | | | | [facility];[address] | | | | | Blvd;[place] [address] | | | + + + + + + + + + + | Performing | Address | City/State/Zipcode | Phone Number | | Organization | | | | + + + + + | [facility] | [address] | [place] [address] | | + + + + + aPTT (09/28/2017 8:09 PM)Only the most recent of 2 results within the time period is inclu ded. + + + + + | Component | Value | Ref Range | Performed At | + + + + + | APTT | 31Comment: Testing | 23 - 32 seconds | [facility] | | | performed at [facility];[address] | | [address];[place] | | | | | [address] | | | + + + + + + + + + + | Performing | Address | City/State/Zipcode | Phone Number | | Organization | | | | + + + + + | [facility] | [address] | [place] [address] | | + + + + + Protime-INR (09/28/2017 8:09 PM)Only the most recent of 2 results within the time period i s included. + + + + + | Component | Value | Ref Range | Performed At | + + + + + | INR | 1.1Comment: REFERENCE | | [facility] | | | RANGE:0.9 - | [...] | | | | | performed at [facility];[address] | [address];[place] | | | | | [address] | | | + + + + + + + + + + | Performing | Address | City/State/Zipcode | Phone Number | | Organization | | | | + + + + + | [facility] | [address] | [place] [address] | | + + + + + johnny Thorne (09/28/2017 8:09 PM) + + + + + | Component | Value | Ref Range | Performed At | + + + + + | D DIMER, | 0.59 (H)Comment: D Dimer | 0.19 - 0.50 mg/L FEU | [facility] | | QUANTITATIVE | results less [...] | | | | | performed at [facility] | | | | | [facility];[place], [place] | | | | | [address] | | | + + + + + + + | Specimen | + + | Blood | + + + + + + + | Performing | Address | City/State/Zipcode | Phone Number | | Organization | | | | + + + + + | [facility] | [address] | [place] [address] | | + + + + + CPK (09/28/2017 8:09 PM) + + + + + | Component | Value | Ref Range | Performed At | + + + + + | CPK | 51 (L)Comment: Testing | 55 - 400 U/L | [facility] | | | performed at [facility];[address] | | | | [address];[place] | | | | | [address] | | | + + + + + + + + + + | Performing | Address | City/State/Zipcode | Phone Number | | Organization | | | | + + + + + | [facility] | [address] | [place] [address] | | + + + + + Cardiac Panel (09/28/2017 5:40 PM)Only the most recent of 2 results within the time period is included. + + + + + | Component | Value | Ref Range | Performed At | + + + + + | WBC | 12.67 (H) | 3.80 - 11.00 K/uL | [facility] | + + + + + | RBC | 4.21 | 4.20 - 5.70 M/uL | [facility] | + + + + + | HGB | 13.5 | 13.2 - 17.0 g/dL | [facility] | + + + + + | HCT | 40.7 | 39.0 - 50.0 % | [facility] | + + + + + | MCV | 96.6 | 80.0 - 100.0 fl | [facility] | + + + + + | MCH | 32.0 | 27.0 - 34.0 pg | [facility] | + + + + + | MCHC | 33.1 | 32.0 - 35.5 g/dL | [facility] | + + + + + | RDW SD | 48.6 | 37 - 53 fl | [facility] | + + + + + | PLT | 194 | 150 - 400 K/uL | [facility] | + + + + + | MPV | 9.4 | fl | [facility] | + + + + + | DIFF TYPE | AUTOMATED | | [facility] | + + + + + [...] (H) | 1.90 - 7.40 K/uL | [facility] | + + + + + | LYMPHOCYTES ABS | 1.43 | 1.00 - 3.90 K/uL | [facility] | + + + + + | MONOCYTES ABS | 1.03 (H) | 0.00 - 0.80 K/uL | [facility] | + + + + + | EOSINOPHILS ABS | 0.22 | 0.00 - 0.50 K/uL | [facility] | + + + + + | BASOPHILS ABS | 0.09Comment: Testing | 0.00 - 0.10 K/uL | [facility] | | | performed at [facility];[address] | | | | | [address];[place] | | | | | [address] | | | + + + + + | SODIUM | SPECIMEN HEMOLYZED, WILL | 135 - 145 mmol/L | [facility] | | | BE REDRAWN RN TO SEND | | | + + + + + | POTASSIUM | SPECIMEN HEMOLYZED, WILL | 3.5 - 4.9 mmol/L | [facility] | | | BE REDRAWN RN TO SEND | | | + + + + + | CHLORIDE | SPECIMEN HEMOLYZED, WILL | 99 - 109 mmol/L | [facility] | | | BE REDRAWN RN TO SEND | | | + + + + + | CO2 | SPECIMEN HEMOLYZED, WILL | 23 - 32 mmol/L | [facility] | | | BE REDRAWN RN TO SEND | | | + + + + + | ANION GAP AGAP | SPECIMEN HEMOLYZED, WILL | 5 - 20 mmol/L | [facility] | | | BE REDRAWN RN TO SEND | | | + + + + + | GLUCOSE | SPECIMEN HEMOLYZED, WILL | 65 - 99 mg/dL | [facility] | | | BE REDRAWN RN TO SEND | | | + + + + + | BUN | SPECIMEN HEMOLYZED, WILL | 8 - 25 mg/dL | [facility] | | | BE REDRAWN RN TO SEND | | | + + + + + | CREATININE | SPECIMEN HEMOLYZED, WILL | 0.70 - 1.30 mg/dL | [facility] | | | BE REDRAWN RN TO SEND | | | + + + + + | BUN/CREAT | SPECIMEN HEMOLYZED, WILL | | [facility] | | | BE REDRAWN RN TO SEND | | | + + + + + | CALCIUM | SPECIMEN HEMOLYZED, WILL | 8.5 - 10.5 mg/dL | [facility] | | | BE REDRAWN RN TO SEND | | | + + + + + | TOTAL PROTEIN | SPECIMEN HEMOLYZED, WILL | 6.3 - 8.2 g/dL | [facility] | | | BE REDRAWN RN TO SEND | | | + + + + + | Albumin | SPECIMEN HEMOLYZED, WILL | 3.3 - 4.8 g/dL | [facility] | | | BE REDRAWN RN TO SEND | | | + + + + + | GLOBULIN | SPECIMEN HEMOLYZED, WILL | 1.3 - 4.9 g/dL | [facility] | | | BE REDRAWN RN TO SEND | | | + + + + + | A/G | SPECIMEN HEMOLYZED, WILL | 1.0 - 2.4 | [facility] | | | BE REDRAWN RN TO SEND | | | + + + + + | TBIL | SPECIMEN HEMOLYZED, WILL | 0.1 - 1.5 mg/dL | [facility] | | | BE REDRAWN RN TO SEND | | | + + + + + | ALK PHOS | SPECIMEN HEMOLYZED, WILL | 35 - 115 U/L | [facility] | | | BE REDRAWN RN TO SEND | | | + + + + + | AST | SPECIMEN HEMOLYZED, WILL | 10 - 45 U/L | [facility] | | | BE REDRAWN RN TO SEND | | | + + + + + | ALT | SPECIMEN HEMOLYZED, WILL | 10 - 65 U/L | [facility] | | | BE REDRAWN RN TO SEND | | | + + + + + | EGFR | SPECIMEN HEMOLYZED, WILL | >60 mL/min/1.73m2 | [facility] | | | BE REDRAWN RN TO SEND | | | + + + + + | CPK | SPECIMEN HEMOLYZED, WILL | 55 - 400 U/L | [facility] | | | BE REDRAWN RN TO SEND | | | + + + + + | PROTIME | SPECIMEN HEMOLYZED, WILL | seconds | [facility] | | | BE REDRAWN RN TO SEND | | | + + + + + | INR | SPECIMEN HEMOLYZED, WILL | | [facility] | | | BE REDRAWN RN TO SEND | | | + + + + + | APTT | SPECIMEN HEMOLYZED, WILL | 23 - 32 seconds | [facility] | | | BE REDRAWN RN TO SEND | | | + + + + + | MMB | SPECIMEN HEMOLYZED, WILL | 0.5 - 3.6 ng/mL | [facility] | | | BE REDRAWN RN TO SEND | | | + + + + + | CK-MB Index | SPECIMEN HEMOLYZED, WILL | | [facility] | | | BE REDRAWN RN TO SEND | | | + + + + + + + + + + | Performing | Address | City/State/Zipcode | Phone Number | | Organization | | | | + + + + + | [facility] | [address] | [place] [address] | | + + + + + BNP (09/28/2017 5:40 PM)Only the most recent of 2 results within the time period is includ ed. + + + + + | Component | Value | Ref Range | Performed At | + + + + + | BRAIN NATRIURETIC | 32.9Comment: Testing | 0 - 100 pg/mL | [facility] | | PEPTIDE | performed at [facility];[address] | | | | | [address];[place] | | | | | [address] | | | + + + + + + + | Specimen | + + | Blood | + + + + + + + | Performing | Address | City/State/Zipcode | Phone Number | | Organization | | | | + + + + + | [facility] | [address] | [place] [address] | | + + + + + US lower extremity venous right (08/28/2017 6:30 PM) + + + | Impressions | Performed At | + + + | 1. No evidence of lower extremity deep vein thrombosis. | [facility] | | | RADIOLOGY | + + + + + + | Narrative | Performed At | + + + | [facility] LOWER EXTREMITY VENOUS DOPPLER RIGHT | MARI | | 08/28/2017 6:30 PM HISTORY: 67 years. Male. Shortness of | RADIOLOGY | | breath with right leg swelling. TECHNIQUE: Right lower extremity | | | venous Doppler performed with color Doppler and spectral Doppler | | | waveform analysis. Duplex Doppler analysis. COMPARISON: None. | | | FINDINGS: Normal compressibility, augmentation of flow, and Doppler | | | flow evident within the deep venous system. No evidence of deep venous | | | thrombosis. | | + + + + + | Procedure Note | + + | Chad Uriarte Results In - 08/28/2017 6:37 PM PDT [facility] LOWER EXTREMITY | | VENOUS DOPPLER RIGHT08/28/2017 6:30 PMHISTORY:67 years. Male. Shortness of breath with | | right leg swelling.TECHNIQUE:Right lower extremity venous Doppler performed with color | | Doppler and spectral Doppler waveform analysis. Duplex Doppler | | analysis.COMPARISON:None.FINDINGS:Normal compressibility, augmentation of flow, and | | Doppler flow evident within the deep venous system. No evidence of deep venous | | thrombosis.IMPRESSION:1. No evidence of lower extremity deep vein | | thrombosis. | |Right lower extremity venous Doppler performed with color Doppler and spectral Doppler wave form analysis. Duplex Doppler analysis. | | | |COMPARISON: | |None. | [...] | + + + + + | [facility] | [address] | [place] [address] | | + + + + + POC cardiac troponin (08/28/2017 5:05 PM) + + + + + | Component | Value | Ref Range | Performed At | + + + + + | POC CARDIAC TROPONIN | 0.00Comment: 0.00 to | 0.00 - 0.10 ng/mL | [facility] | | | 0.10 Consistent with | | | | | normal population0.11 to | | | | | 0.40 Consistent with | | | | | increased risk for | | | | | adverse | | | | | outcomes>0.40 | | | | | Consistent with | | | | | WHO criteria for Acute | | | | | ME Testing performed at | | | | | [facility];[address];[place] [address] | | | + + + + + + + + + + | Performing | Address | City/State/Zipcode | Phone Number | | Organization | | | | + + + + + | [facility] | [address] | [place] [address] | | + + + + + from Last 3 Months Insurance + +--------+ +------+-------+ + | Payer | Benefi | Subscriber | Type | Phone | Address | | | t Plan | ID | | | | | | / | | | | | | | Group | | | | | + +--------+ +------+-------+ + | MEDICAID | [employer] | [id number] | | | [address] | | | N | | | | [place], [place] | | | [place] | | | | [phone] | | | [employer] | | | | | + +--------+ +------+-------+ + | MEDICARE | MEDICA | [id number] | | | [address] | | | [place] | | | | [place] [phone] | | | IP-OP | | | | | + +--------+ +------+-------+ + + +--------+ +--------+ + + | Guarantor Name | Accoun | Relation to | Date | Phone | Billing Address | | | t Type | Patient | of | | | | | | | | | | + +--------+ +--------+ + + | CHEKO HOWELL | Person | Self [birth year] Home: | [address] | | | al/Fam | | 1951 | [phone] [place] [id number] | | | asha | | | [phone] | | + +--------+ +--------+ + +
--- OUTSIDE RECORDS SUMMARY | ~2017-11-20 | XMS | Clinical Summary ---
Demographics + + + | Address | [address] | | | [place] [address] | + + + | Home Phone | | + + + | Preferred Language | Unknown | + + + | Marital Status | | + + + | Orthodoxy Affiliation | 1041 | + + + | Race | Unknown | + + + | Ethnic Group | Unknown | + + + Author + + + | Author | [facility] | + + + | Organization | [facility] | + + + | Address [...] Team Providers + +------+ + | Care Bread Oven Operator Name | Role | Phone | + [...] | | | Activ | | (DRISDOL) [id number] | mouth once a week. | | [...] | | | | | | | ([facility]) | | | | | | | [...] | | Cheko L | | | [place] | | | is a 67 | [...] | | | (DRISDOL) | | | [address]757 units | | | capsule | | [...] | | | culture | | | [[id number]] | | | Collected: | | | [...] | | | Filmarray | | | [[id number]] | | | Collected: | | | [...] | | ergocalcife | | | rol [address] | | | units | | | [...] | | | to | | | [place] | [facility] | | | - | | | [place], | | | [place] [address] | | [address], | | | [place] | | | [place] [address] | | | Phone: | | | [phone] | | | [address] | | | [...] Dr | | | | | | [place] [address] | | | | | | [phone] | | | | | | | [...] | + +--------+ + + + | [facility] CARD PANEL W/O | STAT | 09/28/2017 [...] + + + + + | [facility] | [address] | [place] [address] | | + + + + + [...] | + + + + + | [facility] | [address] | [place] [address] | | + + + + + [...] [facility] | [address] | [place] [address] | | + + + + + Urinalysis (reflex to micro/reflex to culture) (11/18/2017 2:48 PM)Only the most recent of 2 results within the time period is included. + + + + + | Component | Value | Ref Range | Performed At | + + + + + | COLOR UA | YELLOW | | [facility] | + + + + + | CLARITY | HAZY | | [facility] | + + + + + | Specific [place], UA | 1.013 | 1.002 - 1.030 | [facility] | + + + + + | LEUKOCYTE ESTERASE | NEGATIVE | NEGATIVE | [facility] | + + + + + [...] KETONES | NEGATIVE | NEGATIVE mg/dL | [facility] | + + + + + | BILIRUBIN | NEGATIVE | NEGATIVE | [facility] | + + + + + | GLUCOSE | NEGATIVEComment: Testing | NEGATIVE mg/dL | [facility] | | | performed at [facility];[address] | | | | | [address];[place] | | | | | [address] | | | + + + + + + + | Specimen | + + | Urine, Clean Catch | + + + + + + + | Performing | Address | City/State/Zipcode | Phone Number | | Organization | | | | + + + + + | [facility] | [address] | [place] [address] | | + + + + + Septic Lactic Acid (11/18/2017 2:35 PM)Only the most recent of 2 results within the time p mazin is included. + + + + + | Component | Value | Ref Range | Performed At | + + + + + | LACTIC ACID | 1.3Comment: Testing | 0.4 - 2.0 mmol/L | [facility] | | | performed at [facility];[address];[place] | | | | | [address] | | | + + + + + + + + + + | Performing | Address | City/State/Zipcode | Phone Number | | Organization | | | | + + + + + | [facility] | [address] | [place] [address] | | + + + + + Troponin I, Lab (11/18/2017 2:35 PM)Only the most recent of 2 results within the time sujit od is included. + + + + + | Component | Value | Ref Range | Performed At | + + + + + | TROPONIN I | <0.020Comment: 0.00 to | 0.00 - 0.10 ng/mL | [facility] | | | 0.10 [...] | | | | CRITERIA FOR ACUTE MA | | | | | Testing performed at | | | | | [facility];[address] | | | | | [place] [address] | | | + + + + + + + | Specimen | + + | Blood | + + + + + + + | Performing | Address | City/State/Zipcode | Phone Number | | Organization | | | | + + + + + | [facility] | [address] | [place] [address] | | + + + + + CBC with differential (11/18/2017 2:35 PM)Only the most recent of 4 results within the period is included. + + + + + | Component | Value | Ref Range | Performed At | + + + + + | WBC | 9.14 | 3.80 - 11.00 K/uL | [facility] | + + + + + | RBC | 4.42 | 4.20 - 5.70 M/uL | [facility] | + + + + + [...] 317 | 150 - 400 K/uL | [facility] | + + + + + | MPV | 8.6 | fl | [facility] | + + + + + | DIFF TYPE | AUTOMATED | | [facility] | + + + + + | NEUTROPHILS | 80.59 | % | [facility] | + + + + + | LYMPHOCYTES | 11.41 | % | [facility] | + + + + + [...] 0.53 | 0.00 - 0.80 K/uL | [facility] | + + + + + | EOSINOPHILS ABS | 0.13 | 0.00 - 0.50 K/uL | [facility] | + + + + + | BASOPHILS ABS | 0.07Comment: Testing | 0.00 - 0.10 K/uL | [facility] | | | performed at [facility] | | | | | [address];[place] | | | | | [address] | | | + + + + + + + | Specimen | + + | Blood | + + + + + + + | Performing | Address | City/State/Zipcode | Phone Number | | Organization | | | | + + + + + | [facility] | [address] | [place] [address] | | + + + + + Comprehensive metabolic panel (11/18/2017 2:35 PM)Only the most recent of 4 results within the time period is included. + + + + + | Component | Value | Ref Range | Performed At | + + + + + | SODIUM | 140 | 135 - 145 mmol/L | [facility] | + + + [...] 80 | 35 - 115 U/L | [facility] | + + + + + | AST | 19 | 10 - 45 U/L | [facility] | + + + + + | ALT | 25 | 10 - 65 U/L | [facility] | + + + + + | EGFR | >60Comment: GFR <60: | >60 mL/min/1.73m2 | [facility] | | | CHRONIC [...] the | | | | | MDRD MDMS traceable | | | | | equation.Testing | | | | | performed at [facility] | | | | | [facility];[place], [place] | | | | | [address] | | | + + + + + + + | Specimen | + + | Blood | + + + + + + + | Performing | Address | City/State/Zipcode | Phone Number | | Organization | | | | + + + + + | [facility] | [address] | [place] [address] | | + + + + + [...] + + + + | Calculated P [place] | 46 | degrees | [facility] | + + + + + | Calculated R [place] | 25 | degrees | [facility] | + + + + + | Calculated T [place] | 40 | degrees | [facility] | + + + + + | Diagnosis | Normal sinus | | [facility] | | | rhythmNormal ECGWhen | [...] | | | | | ONLY, -COMPUTER ([id number]), | | | | | proposal editor Keara Beckwith | | | | | ([id number]) on 11/19/2017 | | | | | 2:52:05 AM | | | + + + + + + + + + + | Performing | Address | City/State/Zipcode | Phone Number | | Organization | | | | + + + + + | [facility] | [address] | [place] [address] | | + + + + + ED INFORMATION EXCHANGE (11/18/2017 1:59 PM)Only the most recent of 2 results within the t rin period is included. + + + | Narrative | Performed At | + + + | [id number] This patient has registered at the | ED | | [facility] Emergency Department For more | INFORMATION | | information visit: | EXCHANGE | | [email or web address] | | | [id number] Security Events No recent Security Events currently on file | | | ED Care Guidelines from [facility] Last Updated: 08/29/17 | | | 9:04 AM Additional Information: Currently placed at [place] | | | Care [facility] Adult [facility], please contact Glo | | | [place] [phone].Prescription medication goes through [facility], | | | [phone]. These are guidelines and the provider should exercise | | | clinical judgment when providing care. Recent Emergency Department | | | Visit Summary Admit Date Facility City State Type Major Type | | | Diagnoses or Chief Complaint Nov [facility], 2017 [facility] | | [facility] Emergency Emergency increased confusion, | | | dizziness, weakness, and coughing. pt has UTI, MRSA, and recent hx of | | | pneumonia Nov 09, 2017 [facility] [place]. [place] | | | Emergency Emergency Chief Complaint: URO MALE Sep 28, 2017 | | | [facility] Emergency | | | Weakness Shortness of Breath Chronic obstructive | | | pulmonary disease with (acute) exacerbation Other forms of | | | dyspnea Aug 28, 2017 [facility] | | | Emergency Emergency Shortness of Breath Weakness | | | Lymphedema, not elsewhere classified E.D. Visit Count | | | (12 mo.) Facility Visits Low Acuity [facility] | | | System 1 0 [facility] 4 0 Total 5 0 Note: | | | Visits indicate total known visits. Medicaid Low Acuity Dx are the | | | number of primary diagnoses on the Medicaid's Low Acuity dx list. | | | Recent Inpatient Visit Summary Admit Date [facility] City State | | | Type Major Type Diagnoses or Chief Complaint Sep 28, 2017 [facility] | | | [facility] General Medicine Inpatient Other | | | forms of dyspnea Chronic obstructive pulmonary disease with | | | (acute) exacerbation Hypoxemia Other specified soft | | | tissue disorders PDMP Report PDMP query found no report. | | | Care Providers Provider PRC Type Phone Fax Service Dates LUCERO, | | | EULALIO AVILA Physician Roller Staker | | | Current ALYSSA Stevens Validation Scientist [phone] | | [phone] Current [facility] | | | Health [...] | | facilities for additional information. 2018 [employer] | | | [place] - [place], [place] - | | | [email or web address] | | + + + + + | Procedure Note | + + | Interface, Lab - 11/18/2017 2:00 PM PDT Formatting of this note may be different | | from the original.[email or web address]:[id number] [id number] patient has registered at the [facility] | | [facility] Emergency Department For more information visit: | | [email or web address] Security | | EventsNo recent Security Events currently on fileED Care Guidelines from [employer] - | | [place] Updated: 08/29/17 9:04 AM Additional Information:Currently placed at | | [facility], please contact [place] | | [phone].Prescription medication goes through [facility], .These are | | guidelines and the provider should exercise clinical judgment when providing care.Recent | | Emergency Department Visit SummaryAdmit Date Facility [facility] Major Type | | Diagnoses or Chief Complaint Nov 18, [address] [facility] Emergency | | Emergency increased confusion, dizziness, weakness, and coughing. pt has UTI, MRSA, | | and recent hx of pneumonia Nov 09, 2017 [facility] [place]. [place] | | Emergency Emergency Chief Complaint: URO MALE Sep 28, 2017 [facility] | | [facility] Emergency Emergency Weakness Shortness of Breath Chronic obstructive | | pulmonary disease with (acute) exacerbation Other forms of dyspnea Aug 28, 2017 | | [facility] Emergency Emergency Shortness of Breath Weakness | | Lymphedema, not elsewhere classified E.D. Visit Count (12 mo.)Facility Visits Low | | Acuity [facility] 1 0 [facility] 4 0 Total 5 0 | | Note: Visits indicate total known visits. Medicaid Low Acuity Dx are the number of | | primary diagnoses on the Medicaid's Low Acuity dx list. Recent Inpatient Visit | | SummaryAdmit Date Facility [facility] Type Major Type Diagnoses or Chief Complaint Sep | | [address] [facility] General Medicine Inpatient Other forms of | | dyspnea Chronic obstructive pulmonary disease with (acute) exacerbation Hypoxemia | | Other specified soft tissue disorders PDMP ReportPDMP query found no report.Care | | ProvidersProvider [facility] Type Phone Fax Service Dates LEAH MOTTA PA Physician | | Roller Staker Current ALYSSA Stevens Social | | Worker Current [facility] | | Provider Current Known AliasesNo [...] for additional information. 2018 [employer] | [email or web address] [place], [place] - [email or web address] |E.D. Visit Count (12 mo.) | |Facility Visits Low Acuity | |[facility] 1 0 | |[facility] 4 0 | |Total 5 0 | |Note: Visits indicate total known visits. Medicaid Low Acuity Dx are the number of primary diagnoses on the Medicaid's Low Acuity dx list. | | | |Recent Inpatient Visit Summary | |Admit Date Facility [facility] State Type Major Type Diagnoses or Chief Complaint | |[facility] General Medicine Inpatient | | Other forms of dyspnea | | Chronic obstructive pulmonary disease with (acute) exacerbation | | Hypoxemia | | Other specified soft tissue disorders | | | | | | | |PDMP Report | |PDMP query found no report. | | | |Care Providers | |Provider PRC Type Phone Fax Service Dates | |LEAH MOTTA PA Physician Roller Staker Current | |ALYSSA Stevens Validation Scientist Current | |[facility] Health Provider Current | [...] aforementioned facilities for additional information. | |2018 [email or web address] - [place], [place] - [email or web address] | + + + +---------+ + + [...] PROCALCITONIN | 0.15Comment: | <0.5 ng/mL | [facility] | | | INTERPRETIVE [...] performed | | | | | at [facility];[address] | | | | | [place] [address] | | | + + + + + + + + + + | Performing | Address | City/State/Zipcode | Phone Number | | Organization | | | | + + + + + | [facility] | [address] | [place] [address] | | + + + + + [...] the | | | | | MDRD [facility] traceable | | | | | equation.Testing | | | | | performed at [facility], [address] | | | | | [facility], | | | | | [place] [address] | | | + + + + + + + | Specimen | + + | Blood | + + + + + + + | Performing | Address | City/State/Zipcode | Phone Number | | Organization | | | | + + + + + | [facility] | [address] | [place] [address] | [phone] | | LABORATORY | [address] | | [...] + + + | [facility] | [address] | [place] [address] | [phone] | | LABORATORY | [address]vd[address] | | | + + + + + Phosphorus (09/29/2017 4:47 AM) + + + + + | Component | Value | Ref Range | Performed At | + + + + + | PHOSPHORUS | 2.1 (L)Comment: Testing | 2.3 - 4.8 mg/dL | [facility] | | | performed at [facility], [address] | | LABORATORY | | | [address], | | | | | [place] [address] | | | + + + + + + + | Specimen | + + | Blood | + + + + + + + | Performing | Address | City/State/Zipcode | Phone Number | | Organization | | | | + + + + + | [facility] | [address] | [place] [address] | [phone] | | LABORATORY | [address]vd[address] | | | + + + + + Magnesium (09/29/2017 4:47 AM) + + + + + | Component | Value | Ref Range | Performed At | + + + + + | MAGNESIUM | 2.3Comment: Testing | 1.7 - 2.4 mg/dL | [facility] | | | performed at [facility], [address] | | LABORATORY | | | [facility], | | | | | [place] [address] | | | + + + + + + + | Specimen | + + | Blood | + + + + + + + | Performing | Address | City/State/Zipcode | Phone Number | | Organization | | | | + + + + + | [facility] | [address] | [place] [address] | [phone] | | LABORATORY | [address]vd[address] | | [...] 12:56AM Referring Provider Line: | | | [phone] ID: [id number] | | + + + [...] Sep 29 2017 12:56AM Referring Provider Line: [phone] ID: [id number] | | | |Mediastinum: Heart [...] 29 2017 12:56AM Referring Provider Line: [phone] ID: [id number] | + + + + + + + | Performing | Address | City/State/Zipcode | Phone Number | | Organization | | | | + + + + + | [facility] | [address] | [place] [address] | | + + + + + POC Arterial Blood Gas (09/28/2017 11:11 PM)Only the most recent of 2 results within the ti ak period is included. + + + + + | Component | Value | Ref Range | Performed At | + + + + + | pH, Art | 7.341 (L) | 7.350 - 7.450 | [facility] | + + + + + | POC PCO2 | 42 | 35 - 45 mmHg | [facility] | + + + + + | POC p02 | 93 | 80 - 105 mmHg | [facility] | + + + + + | POC HCO3 | 23 | 22 - 26 mmol/L | [facility] | + + + + + | POC TCO2 | 24 | 23 - 27 mEq/L | [facility] | + + + + + | POC BASE DEFICIT | 3 (H) | 0.0 - 2.0 mmol/L | [facility] | + + + + + | POC S02 | 97 | 95 - 98 % | [facility] | + + + + + | POC COMMENTS | Christian Test not | | [facility] | | | indicatedComment: Site = | | | | | right radialTesting | | | | | performed at [facility];[address] | | | | | [address];[place] | | | | | [address] | | | + + + + + + + + + + | Performing | Address | City/State/Zipcode | Phone Number | | Organization | | | | + + + + + | [facility] | [address] | [place] [address] | | + + + + + [...] performed at | | | | | [facility], [address] | | | | | [place] | | | | | [address] | | | + + + + + + + | Specimen | + + | Nasopharyngeal | | Culture | + + + + + + + | Performing | Address | City/State/Zipcode | Phone Number | | Organization | | | | + + + + + | [facility] | [address] | [place] [address] | [phone] | | LABORATORY | Blvd. | | [...] | + + + | CHEKO Looney [facility] LOWER EXTREMITY VENOUS DOPPLER BILAT | [facility] [...] MARI MCKENZIE | [address] | [place] [address] | | + + + + + [...] performed at | | | | | [facility];[address] | | | | | Blvd;[place] [address] | | | + + + + + + + + + + | Performing | Address | City/State/Zipcode | Phone Number | | Organization | | | | + + + + + | [facility] | [address] | [place] [address] | | + + + + + aPTT (09/28/2017 8:09 PM)Only the most recent of 2 results within the time period is inclu ded. + + + + + | Component | Value | Ref Range | Performed At | + + + + + | APTT | 31Comment: Testing | 23 - 32 seconds | [facility] | | | performed at [facility];[address];[place] | | | | | [address] | | | + + + + + + + + + + | Performing | Address | City/State/Zipcode | Phone Number | | Organization | | | | + + + + + | [facility] | [address] | [place] [address] | | + + + + + Protime-INR (09/28/2017 8:09 PM)Only the most recent of 2 results within the time period i s included. + + + + + | Component | Value | Ref Range | Performed At | + + + + + | INR | 1.1Comment: REFERENCE | | [facility] | | | RANGE:0.9 [...] | | | | | performed at [facility];[address];[place] | | | | | [address] | | | + + + + + + + + + + | Performing | Address | City/State/Zipcode | Phone Number | | Organization | | | | + + + + + | [facility] | [address] | [place] [address] | | + + + + + johnny Thorne (09/28/2017 8:09 PM) + + + + + | Component | Value | Ref Range | Performed At | + + + + + | D DIMER, | 0.59 (H)Comment: D Dimer | 0.19 - 0.50 mg/L FEU | [facility] | | QUANTITATIVE | [...] | | | | | performed at [facility] | | | | | [facility];[place], [place] | | | | | [address] | | | + + + + + + + | Specimen | + + | Blood | + + + + + + + | Performing | Address | City/State/Zipcode | Phone Number | | Organization | | | | + + + + + | [facility] | [address] | [place] [address] | | + + + + + CPK (09/28/2017 8:09 PM) + + + + + | Component | Value | Ref Range | Performed At | + + + + + | CPK | 51 (L)Comment: Testing | 55 - 400 U/L | [facility] | | | performed at [facility];[address] | [address];[place] | | | | | [address] | | | + + + + + + + + + + | Performing | Address | City/State/Zipcode | Phone Number | | Organization | | | | + + + + + | [facility] | [address] | [place] [address] | | + + + + + Cardiac Panel (09/28/2017 5:40 PM)Only the most recent of 2 results within the time period is included. + + + + + | Component | Value | Ref Range | Performed At | + + + + + | WBC | 12.67 (H) | 3.80 - 11.00 K/uL | [facility] | + + + + + | RBC | 4.21 | 4.20 - 5.70 M/uL | [facility] | + + + + + | HGB | 13.5 | 13.2 - 17.0 g/dL | [facility] | + + + + + | HCT | 40.7 | 39.0 - 50.0 % | [facility] | + + + + + | MCV | 96.6 | 80.0 - 100.0 fl | [facility] | + + + + + | MCH | 32.0 | 27.0 - 34.0 pg | [facility] | + + + + + | MCHC | 33.1 | 32.0 - 35.5 g/dL | [facility] | + + + + + | RDW SD | 48.6 | 37 - 53 fl | [facility] | + + + + + | PLT | 194 | 150 - 400 K/uL | [facility] | + + + + + | MPV | 9.4 | fl | [facility] | + + + + + | DIFF TYPE | AUTOMATED | | [facility] | + + + + + [...] 0.22 | 0.00 - 0.50 K/uL | [facility] | + + + + + | BASOPHILS ABS | 0.09Comment: Testing | 0.00 - 0.10 K/uL | [facility] | | | performed at [facility];[address] | | | | | [address];[place] | | | | | [address] | | | + + + + + | SODIUM | SPECIMEN HEMOLYZED, WILL | 135 - 145 mmol/L | [facility] | | | BE REDRAWN RN TO SEND | | | + + + + + | POTASSIUM | SPECIMEN HEMOLYZED, WILL | 3.5 - 4.9 mmol/L | [facility] | | | BE REDRAWN RN TO SEND | | | + + + + + | CHLORIDE | SPECIMEN HEMOLYZED, WILL | 99 - 109 mmol/L | [facility] | | | BE REDRAWN RN TO SEND | | | + + + + + | CO2 | SPECIMEN HEMOLYZED, WILL | 23 - 32 mmol/L | [facility] | | | BE REDRAWN RN TO SEND | | | + + + + + | ANION GAP AGAP | SPECIMEN HEMOLYZED, WILL | 5 - 20 mmol/L | [facility] | | | BE REDRAWN RN TO SEND | | | + + + + + | GLUCOSE | SPECIMEN HEMOLYZED, WILL | 65 - 99 mg/dL | [facility] | | | BE REDRAWN RN TO SEND | | | + + + + + | BUN | SPECIMEN HEMOLYZED, WILL | 8 - 25 mg/dL | [facility] | | | BE REDRAWN RN TO SEND | | | + + + + + | CREATININE | SPECIMEN HEMOLYZED, WILL | 0.70 - 1.30 mg/dL | [facility] | | | BE REDRAWN RN TO SEND | | | + + + + + | BUN/CREAT | SPECIMEN HEMOLYZED, WILL | | [facility] | | | BE REDRAWN RN TO SEND | | | + + + + + | CALCIUM | SPECIMEN HEMOLYZED, WILL | 8.5 - 10.5 mg/dL | [facility] | | | BE REDRAWN RN TO SEND | | | + + + + + | TOTAL PROTEIN | SPECIMEN HEMOLYZED, WILL | 6.3 - 8.2 g/dL | [facility] | | | BE REDRAWN RN TO SEND | | | + + + + + | Albumin | SPECIMEN HEMOLYZED, WILL | 3.3 - 4.8 g/dL | [facility] | | | BE REDRAWN RN TO SEND | | | + + + + + | GLOBULIN | SPECIMEN HEMOLYZED, WILL | 1.3 - 4.9 g/dL | [facility] | | | BE REDRAWN RN TO SEND | | | + + + + + | A/G | SPECIMEN HEMOLYZED, WILL | 1.0 - 2.4 | [facility] | | | BE REDRAWN RN TO SEND | | | + + + + + | TBIL | SPECIMEN HEMOLYZED, WILL | 0.1 - 1.5 mg/dL | [facility] | | | BE REDRAWN RN TO SEND | | | + + + + + | ALK PHOS | SPECIMEN HEMOLYZED, WILL | 35 - 115 U/L | [facility] | | | BE REDRAWN RN TO SEND | | | + + + + + | AST | SPECIMEN HEMOLYZED, WILL | 10 - 45 U/L | [facility] | | | BE REDRAWN RN TO SEND | | | + + + + + | ALT | SPECIMEN HEMOLYZED, WILL | 10 - 65 U/L | [facility] | | | BE REDRAWN RN TO SEND | | | + + + + + | EGFR | SPECIMEN HEMOLYZED, WILL | >60 mL/min/1.73m2 | [facility] | | | BE REDRAWN RN TO SEND | | | + + + + + | CPK | SPECIMEN HEMOLYZED, WILL | 55 - 400 U/L | [facility] | | | BE REDRAWN RN TO SEND | | | + + + + + | PROTIME | SPECIMEN HEMOLYZED, WILL | seconds | [facility] | | | BE REDRAWN RN TO SEND | | | + + + + + | INR | SPECIMEN HEMOLYZED, WILL | | [facility] | | | BE REDRAWN RN TO SEND | | | + + + + + | APTT | SPECIMEN HEMOLYZED, WILL | 23 - 32 seconds | [facility] | | | BE REDRAWN RN TO SEND | | | + + + + + | MMB | SPECIMEN HEMOLYZED, WILL | 0.5 - 3.6 ng/mL | [facility] | | | BE REDRAWN RN TO SEND | | | + + + + + | CK-MB Index | SPECIMEN HEMOLYZED, WILL | | [facility] | | | BE REDRAWN RN TO SEND | | | + + + + + + + + + + | Performing | Address | City/State/Zipcode | Phone Number | | Organization | | | | + + + + + | [facility] | [address] | [place] [address] | | + + + + + BNP (09/28/2017 5:40 PM)Only the most recent of 2 results within the time period is includ ed. + + + + + | Component | Value | Ref Range | Performed At | + + + + + | BRAIN NATRIURETIC | 32.9Comment: Testing | 0 - 100 pg/mL | [facility] | | PEPTIDE | performed at [facility];[address];[place] | | | | | [address] | | | + + + + + + + | Specimen | + + | Blood | + + + + + + + | Performing | Address | City/State/Zipcode | Phone Number | | Organization | | | | + + + + + | [facility] | [address] | [place] [address] | | + + + + + [...] + + + + + | [facility] | [address] | [place] [address] | | + + + + + POC cardiac troponin (08/28/2017 5:05 PM) + + + + + | Component | Value | Ref Range | Performed At | + + + + + | POC CARDIAC TROPONIN | 0.00Comment: 0.00 to | 0.00 - 0.10 ng/mL | [facility] | | | 0.10 Consistent with [...] for Acute | | | | | MA Testing performed at | | | | | [facility];[address];[place] [address] | | | + + + + + + + + + + | Performing | Address | City/State/Zipcode | Phone Number | | Organization | | | | + + + + + | [facility] | [address] | [place] [address] | | + + + + + [...] +------+-------+ + | MEDICAID | [facility] | [id number] | | | [address] | | | N | | | | [place], [place] | | | [place] | | | | [address] | | | [employer] | | | | | + +--------+ +------+-------+ + | MEDICARE | MEDICA | [id number] | | | [address] | | | RE | | | | [place] [address] | | | IP-OP | | | [...] | 1951 | [phone] [place] [address] | | | asha | | | [address]37 | | + +--------+ +--------+ + +
--- OUTSIDE RECORDS SUMMARY | ~2017-11-20 | XMS | Clinical Summary ---
Demographics + + + | Address | [address] | | | [place] [address] | + + + | Home Phone | | + + + | Preferred Language | Unknown | + + + | Marital Status | Single | + + + | Mormonism Affiliation | CHR | + + + | Race | White | + + + | Ethnic Group | Not or | + + + Author + + + | Author | [facility] | + + + | Organization | [facility] | + + + | Address | Unknown | + + + | Phone | Unavailable | + + + Support + + +---------+ + | Name | Relationship | Address | Phone | + + +---------+ + | DOMO RUTLEDGE | ECON | Unknown | | + + +---------+ + | Shirley Gerber | ECON | Unknown | | + + +---------+ + Care Team Providers + +------+ + | Care Donor Services Manager Name | Role | Phone | + +------+ + | Fracisco Guerrero MD | PP | | + +------+ + Source Comments [facility] is fully live on both EpicCare Ambulatory and EpicCare InPatient[facility] Allergies + + + + + + | Active Allergy | Reactions | Severity | Noted | Comments | | | | | Date | | + + + + + + | Peanut | Hives | | 02/22/20 | | | | | | 10 | | + + + + + + Current Medications + + + +---------+------+------+-------+ | Prescription | Sig. | Disp. | Refills | Star | End | Statu | | | | | | t | Date | s | | | | | | Date | | | + + + +---------+------+------+-------+ | sertraline 100 mg | Take 100 mg by mouth | | | /2 | | Activ | | Oral Tablet | once daily in the | | | 03/24 | | e | | | morning. One tab am | | | 10 | | | | | 1/2 tab at noon | | | | | | + + + +---------+------+------+-------+ | sertraline 50 mg | Take 50 mg by mouth | | | 12/2 | | Activ | | Oral Tablet | once daily at noon. | | | 03/24 | | e | | | | | | 10 | | | + + + +---------+------+------+-------+ | olanzapine | Take 15 mg by mouth | | | 12/2 | | Activ | | (ZYPREXA) 15 mg Oral | once daily at | | | 03/24 | | e | | Tablet | bedtime. 03/06 tab am | | | 10 | | | | | 1 tab pm | | | | | | + + + +---------+------+------+-------+ | simvastatin 40 mg | Take 40 mg by mouth | | | | | Activ | | Oral Tablet | once daily in the | | | | | e | | | evening. | | | | | | + + + +---------+------+------+-------+ | buPROPion SR | Take 100 mg by mouth | | | | | Activ | | (BUDEPRION SR) 100 | two times daily. | | | | | e | | mg Oral Tablet | Two tabs am one tab | | | | | | | Sustained Release | at noon | | | | | | + + + +---------+------+------+-------+ | ergocalciferol | Take 50,000 Units by | | | | | Activ | | (VITAMIN D) 50,000 | mouth every seven | | | | | e | | unit Oral Capsule | days. | | | | | | + + + +---------+------+------+-------+ | oxyCODONE, | Take 1-2 Tabs by | 50 Tab | 0 | 12/2 | | Activ | | immediate release, 5 | mouth every six | | | 7/20 | | e | | mg Oral Tablet | hours as needed for | | | 10 | | | | | moderate pain. | | | | | | + + + +---------+------+------+-------+ | Blood Sugar | As instructed. | 100 | 0 | 12/2 | | Activ | | Diagnostic (BLOOD | | Each | | 7/20 | | e | | GLUCOSE TEST) Strip | | | | 10 | | | + + + +---------+------+------+-------+ | albuterol | Inhale 2 Puffs every | | | | | Activ | | (VENTOLIN HFA) 90 | six hours as | | | | | e | | mcg/actuation | needed. | | | | | | | Inhalation HFA | | | | | | | | Aerosol Inhaler | | | | | | | + + + +---------+------+------+-------+ | metFORMIN 500 mg | Take 500 mg by mouth | | | | | Activ | | Oral Tablet | two times daily. | | | | | e | + + + +---------+------+------+-------+ | omeprazole 20 mg | Take 20 mg by mouth | | | | | Activ | | Oral Capsule, | two times daily. | | | | | e | | Delayed | | | | | | | | Release(E.C.) | | | | | | | + + + +---------+------+------+-------+ | L-Methylfolate | Take 7.5 mg by mouth | | | | | Activ | | (DEPLIN) 15 mg Oral | two times daily. 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 | + + + | Depression | | + + + | Sleep apnea | | + + + | Spinal arthrodesis present | | + + + + + | Overview: T2- T4 | + + + +---+ | Compression fracture of thoracic vertebra (HCC) | | + +---+ + + | Overview: T3 | + + + +---+ | COPD (chronic obstructive pulmonary disease) (HCC) | | + +---+ | Traumatic brain injury (HCC) | | + +---+ Immunizations + + + + | Name | Dates Previously Given | Next Due | + + + + | Pneumococcal 23 | 02/21/2010 | | + + + + Family History + + +------+ + | Medical History | Relation | Name | Comments | + + +------+ + | Heart Disease | Father | | Angina | + + +------+ + | Stroke | Father | | | + + +------+ + | Non-contributory | Mother | | | + + +------+ + + +------+ + + | Relation | Name | Status | Comments | + +------+ + + | Father | | | | + +------+ + + | Mother | | Alive | | + +------+ + + Social History + +-------+ +--------+ + | Tobacco Use | Types | Packs/Day | Years | Date | | | | | Used | | + +-------+ +--------+ + | Former Smoker | | | | Quit: 03/04/1998 | + +-------+ +--------+ + + +---+---+---+ [...] + + + | Blood Pressure | 114/80 | 07/13/2011 12:54 PM PDT | + + + + | Pulse | 88 | 07/13/2011 12:54 PM PDT | + + + + | Temperature | 36.8 C (98.3 F) | 07/13/2011 12:54 PM PDT | + + + + | Respiratory Rate | 20 | 07/13/2011 12:54 PM PDT | + + + + | Oxygen Saturation | 99% | 07/13/2011 12:54 PM PDT | + + + + | Inhaled Oxygen | - | - | | Concentration | | | + + + + | Weight | 79.4 kg (175 lb) | 07/13/2011 12:54 PM PDT | + + + + | Height | 176.5 cm (5' 9.5") | 07/13/2011 12:54 PM PDT | + + + + | Body Mass Index | 25.47 | 07/13/2011 12:54 PM PDT | + + + + Plan of Treatment + + + + + | Health Maintenance | Due Date | Last Done | Comments | + + + + + | Pneumococcal (Adult) | | 02/21/2010 | | | (1 of 2 - PCV13) | 4 | | | + + + + + | INFLUENZA VACCINE | | | | | (FLU SHOT) | 8 | | | + + + + + Results Not on filefrom Last 3 Months
--- OUTSIDE RECORDS SUMMARY | ~2017-11-20 | XMS | Encounter Summary ---
Demographics + + + | Address | [address] | | | [place] [address] | + + + | Home Phone | | + + + | Preferred Language | Unknown | + + + | Marital Status | | + + + | Tenriism Affiliation | [id number] | + + + | Race | Unknown | + + + | Ethnic Group | Unknown | + + + Author + + + | Author | [facility] | + + + | Organization | [facility] | + + + | Address [...] Team Providers + +------+ + | Care Telephone Messenger Name | Role | Phone | + [...] + + | 10/24/ | Telephone | [facility] | Tammy Bloom | Medication Problem | | 2017 | | [facility] | T, RN | (Ellie Sánchez | | | | [address] | | [place]) | | | | [place] [address] | | | | | | [phone] | | | +--------+ + + + [...] Dr | | | | | | [place] [address] | | | | | | [phone] | | | | | | | | +--------+---------+ + + + as of this encounter Visit Diagnoses Not on filein this encounter"
--- OUTSIDE RECORDS SUMMARY | ~2017-11-20 | XMS | Encounter Summary ---
Demographics + + + | Address | [address] | | | [place] [address] | + + + | Home Phone | | + + + | Preferred Language | Unknown | + + + | Marital Status | | + + + | Episcopalian Affiliation | 1041 | + + + | Race | Unknown | + + + | Ethnic Group | Unknown | + + + Author + + + | Author | [facility] | + + + | Organization | [facility] | + + + | Address [...] Team Providers + +------+ + | Care Geometrician Name | Role | Phone | + +------+ + | Leah Motta | PCP | | + +------+ + Reason for Visit + + + | Reason | Comments | + + + | Weakness | | + + + | Altered Mental | | | Status | | + + + | Cough | recent pneumonia | + + + | Urinary Tract | on abx | | Infection | | + + + | Fall | this morning at around 0700 - ground level and landed "on his | | | butt" | + + + Encounter Details +--------+ + + + + | Date | Type | Department | Care Team | Description | +--------+ + + + + | 11/18/ | Emergency | [facility] | | Fall, initial | | 2017 | | Medical Center | | encounter (Primary | | | | Emergency Department | | Dx); Closed | | | | [address] | | compression fracture | | | | [place] [address] | | of first lumbar | | | | [phone] | | vertebra, initial | | | | | | encounter (HCC) | +--------+ + + + + Social [...] + + + + | Height | - | - | + + + + | Body Mass Index | 32.2 | 11/18/2017 2:02 PM PDT | + + + + in this encounter Discharge Instructions Erika Jimenes PA-C - 11/18/2017If blood cultures or urine culture show concerning khai shaikh, you will receive a phone call in 2-3 days with results. The following attachments cannot be sent through Care Everywhere.Fracture, Vertebral Compre ssion (Belgian)in this encounter Medications at Time of Discharge [...] | | | | | | (DRISDOL) 51189 | mouth once a week. | | [...] tablet by | 5 | 0 | 07/30/20 | | | (LEVAQUIN) 750 MG | [...] capsule by | 30 | 0 | // | | | 5 MG capsule | [...] 3 days | 6 | 0 | //20 | | | (DELTASONE) 20 MG | [...] into | 1 each | 11 | 09/28/19 | | | umeclidinium-vilante | the lungs [...] | | | | | | | ([facility]) | | | | | | + + + +---------+ + + as of this encounter Plan of Treatment +--------+---------+ + + + | Date | Type | Specialty | Care Team | Description | +--------+---------+ + + + | 10/19/ | Office | Pulmonology | [place], | | | 2018 | Visit | | Luzmaria Jimenez, | | | | | | MD [address] | | | | | | [place] [address] | | | | | | [phone] | | | | | | | | +--------+---------+ + + + + +--------+ + + | Name | Priori | Associated Diagnoses | Date/Time | | | ty | | | + +--------+ + + | Blood Culture Set 1 | STAT | | 11/18/2017 2:35 PM | | | | | PDT | + +--------+ + + | Blood Culture Set 2 | STAT | | 11/18/2017 2:42 PM | | | | | PDT | + +--------+ + + as of this encounter Procedures [...] + + + in this encounter Results XR Lumbar Spine 3 View (11/18/2017 [...] | + + + + + | [facility] | [address] | [place] [address] | | + + + + + XR Chest PA and Lateral (11/18/2017 3:09 PM) + + + | Impressions | Performed At | + + + | 1. Mild bilateral perihilar and bibasilar atelectasis. | [facility] | | 2. Distention of the stomach. | | + + + + + + | Narrative | Performed At | + + + | HISTORY: Cough. Congestion. Question pneumonia. COMPARISON: | [facility] | | 09/28/17. TECHNIQUE: AP and lateral [...] | + + + + + | [facility] | [address] | [place] [address] | | + + + + + [...] + + + | [facility] | [address] | [place] [address] | | + + + + + Urinalysis (reflex to micro/reflex to culture) (11/18/2017 2:48 PM) + + + + + | Component | Value | Ref Range | Performed At | + + + + + | COLOR UA | YELLOW | | [facility] | + + + + + | CLARITY | HAZY | | [facility] | + + + + + | Specific K[place], UA | 1.013 | 1.002 - 1.030 | [facility] | + + + + + | LEUKOCYTE ESTERASE | NEGATIVE | NEGATIVE | [facility] | + + + + + | NITRITE | NEGATIVE | NEGATIVE | [facility] | + + + + + | UROBILINOGEN | NORMAL | <1.1 mg/dL | [facility] | + + + + + | PROTEIN | NEGATIVE | NEGATIVE mg/dL | [facility] | + + + + + | PH,URINE | 7.0 | 5.0 - 8.0 | [facility] | + + + + + | BLOOD | NEGATIVE | NEGATIVE | [facility] | + + + + + | KETONES | NEGATIVE | NEGATIVE mg/dL | [facility] | + + + + + | BILIRUBIN | NEGATIVE | NEGATIVE | [facility] | + + + + + | GLUCOSE | NEGATIVEComment: Testing | NEGATIVE mg/dL | [facility] | | | performed at [facility] [place] | | | | | [address];[place] | | | | | [address] | | | + + + + + + + | Specimen | + + | Urine, Clean Catch | + + + + + + + | Performing | Address | City/State/Zipcode | Phone Number | | Organization | | | | + + + + + | [facility] | [address] | [place] [address] | | + + + + + Septic Lactic Acid (11/18/2017 2:35 PM) + + + + + | Component | Value | Ref Range | Performed At | + + + + + | LACTIC ACID | 1.3Comment: Testing | 0.4 - 2.0 mmol/L | [facility] | | | performed at [facility] [place] | | | | | [address];[place] | | | | | [address] | | | + + + + + + + + + + | Performing | Address | City/State/Zipcode | Phone Number | | Organization | | | | + + + + + | [facility] | [address] | [place] [address] | | + + + + + Troponin I, Lab (11/18/2017 2:35 PM) + + + + + | Component | Value | Ref Range | Performed At | + + + + + | TROPONIN I | <0.020Comment: 0.00 to | 0.00 - 0.10 ng/mL | [facility] | | | 0.10 CONSISTENT [...] performed at | | | | | [facility] [place];[address] [place] [address] | | | | | Blvd;[place] [address] | | | + + + + + + + | Specimen | + + | Blood | + + + + + + + | Performing | Address | City/State/Zipcode | Phone Number | | Organization | | | | + + + + + | [facility] | [address] | [place] [address] | | + + + + + Comprehensive metabolic panel (11/18/2017 2:35 PM) + + + + + | [...] 28 | 23 - 32 mmol/L | [facility] | + + + + + | ANION GAP AGAP | 10 | 5 - 20 mmol/L | [facility] | + + [...] 7.1 | 6.3 - 8.2 g/dL | [facility] | + + + + + | Albumin | 3.1 (L) | 3.3 - 4.8 g/dL | [facility] [...] 80 | 35 - 115 U/L | [facility] | + + + + + | AST | 19 | 10 - 45 U/L | [facility] | + + + + + | ALT | 25 | 10 - 65 U/L | [facility] | + + + + + | EGFR | >60Comment: GFR <60: | >60 mL/min/1.73m2 | [facility] | | | CHRONIC KIDNEY [...] the | | | | | MDRD DCMS traceable | | | | | equation.Testing | | | | | performed at [facility] [place];[facility] | | | | | [facility];[place], [place] | | | | | [address] | | | + + + + + + + | Specimen | + + | Blood | + + + + + + + | Performing | Address | City/State/Zipcode | Phone Number | | Organization | | | | + + + + + | [facility] | [address] | [place] [address] | | + + + + + CBC with differential (11/18/2017 2:35 PM) + + + + + | Component | Value | Ref Range | Performed At | + + + + + | WBC | 9.14 | 3.80 - 11.00 K/uL | [facility] | + + + + + | RBC | 4.42 | 4.20 - 5.70 M/uL | [facility] | + + + + + | HGB | 14.0 | 13.2 - 17.0 g/dL | [facility] | + + + + + | HCT | 42.5 | 39.0 - 50.0 % | [facility] | + + + + + | MCV | 96.1 | 80.0 - 100.0 fl | [facility] | + + + + + | MCH | 31.6 | 27.0 - 34.0 pg | [facility] | + + + + + | MCHC | 32.9 | 32.0 - 35.5 g/dL | [facility] | + + + + + | RDW SD | 45.5 | 37 - 53 fl | [facility] | + + + + + | PLT | 317 | 150 - 400 K/uL | [facility] | + + + + + | MPV | 8.6 | fl | [facility] | + + + + + | DIFF TYPE | AUTOMATED | | [facility] | + + + + + | NEUTROPHILS | 80.59 | % | [facility] | + + + + + | LYMPHOCYTES | 11.41 | % | [facility] | + + + + + | MONOCYTES | 5.80 | % | [facility] | + + + + + | EOSINOPHILS | 1.45 | % | [facility] | + + + + + | BASOPHILS | 0.75 | % | [facility] | + + + + + | NEUTROPHILS ABS | 7.36 | 1.90 - 7.40 K/uL | [facility] | + + + + + | LYMPHOCYTES ABS | 1.04 | 1.00 - 3.90 K/uL | [facility] | + + + + + | MONOCYTES ABS | 0.53 | 0.00 - 0.80 K/uL | [facility] | + + + + + | EOSINOPHILS ABS | 0.13 | 0.00 - 0.50 K/uL | [facility] | + + + + + | BASOPHILS ABS | 0.07Comment: Testing | 0.00 - 0.10 K/uL | [facility] | | | performed at [facility] [place];[address];[place] | | | | | [address] | | | + + + + + + + | Specimen | + + | Blood | + + + + + + + | Performing | Address | City/State/Zipcode | Phone Number | | Organization | | | | + + + + + | [facility] | [address] | [place] [address] | | + + + + + EKG 12 LEAD UNIT PERFORMED (11/18/2017 2:33 PM) + + + + + | [...] + + + + | Calculated P [place] | 46 | degrees | [facility] | + + + + + | Calculated R [place] | 25 | degrees | [facility] | + + + + + | Calculated T [place] | 40 | degrees | [facility] | + + + + + | Diagnosis | Normal sinus | | [facility] | | | rhythmNormal ECGWhen [...] | | | | | ONLY, -COMPUTER ([id number]), | | | | | acquisition editor Keara Beckwith | | | | | ([phone]) on 11/19/2017 | | | | | 2:52:05 AM | | | + + + + + + + + + + | Performing | Address | City/State/Zipcode | Phone Number | | Organization | | | | + + + + + | [facility] | [address] | [place] [address] | | + + + + + ED INFORMATION EXCHANGE (11/18/2017 1:59 PM) + + + | Narrative | Performed At | + + + | [id number] [id number] This patient has registered at the | ED | | [facility] Emergency Department For more | INFORMATION | | information visit: | EXCHANGE | | [email or web address] | | | [id number] Security Events No recent Security Events currently on file | | | ED Care Guidelines from [facility] Last Updated: 08/29/17 | | | 9:04 AM Additional Information: Currently placed at [place] | | | [facility] [place] please contact Glo | | | [place] [phone].Prescription medication goes through [facility], | | | [phone]. These are guidelines and the provider should exercise | | | clinical judgment when providing care. Recent Emergency Department | | | Visit Summary Admit Date Facility City State Type Major Type | | | Diagnoses or Chief Complaint [facility] | [place] [facility] Emergency increased confusion, | | | dizziness, weakness, and coughing. pt has UTI, MRSA, and recent hx of | | | pneumonia Nov 09, 2017 [facility] [place]. [place] | | | Emergency Emergency Chief Complaint: URO MALE Sep 28, 2017 | | | [facility] Emergency Emergency | | | Weakness Shortness of Breath Chronic obstructive | | | pulmonary disease with (acute) exacerbation Other forms of | | | dyspnea Aug 28, 2017 [facility] | | | Emergency Emergency Shortness of Breath Weakness | | | Lymphedema, not elsewhere classified E.D. Visit Count | | | (12 mo.) Facility Visits Low Acuity [facility] | | | System 1 0 [facility] 4 0 Total 5 0 Note: | | | Visits indicate total known visits. Medicaid Low Acuity Dx are the | | | number of primary diagnoses on the Medicaid's Low Acuity dx list. | | | Recent Inpatient Visit Summary Admit Date Facility [facility] State | | | Type Major Type Diagnoses or Chief Complaint Sep 28, 2017 [facility] | | | [facility] General Medicine Inpatient Other | | | forms of dyspnea Chronic obstructive pulmonary disease with | | | (acute) exacerbation Hypoxemia Other specified soft | | | tissue disorders PDMP Report PDMP query found no report. | | | Care Providers Provider PRC Type Phone Fax Service Dates [facility], | | | EULALIO AVILA Physician Drill Runner | | | Current Jim Chang René Fence Manufacture Supervisor [phone] | | | [phone] Current [facility] | | | Health Provider [...] | | facilities for additional information. 2018 [employer] | | | [email or web address]. - [place], [place] - | | | [email or web address] | | + + + + + | Procedure Note | + + | Interface, Lab - 11/18/2017 2:00 PM PDT Formatting of this note may be different | | from the original.[id number] [id number] patient has registered at the [facility] | | [facility] Emergency Department For more information visit: | | [email or web address] Security | | EventsNo recent Security Events currently on fileED Care Guidelines from [employer] - | | [place] Updated: 08/29/17 9:04 AM Additional Information:Currently placed at | | [facility], please contact Glo [place] | | [phone].Prescription medication goes through [facility], .These are | | guidelines and the provider should exercise clinical judgment when providing care.Recent | | Emergency Department Visit SummaryAdmit Date Facility [facility] Type Major Type | | Diagnoses or Chief Complaint Nov 18, 2017 [facility] Emergency | | Emergency increased confusion, dizziness, weakness, and coughing. pt has UTI, MRSA, | | and recent hx of pneumonia Nov 09, 2017 [facility] [place]. [place] | | Emergency Emergency Chief Complaint: URO MALE Sep 28, 2017 [facility] | | [facility] Emergency Emergency Weakness Shortness of Breath Chronic obstructive | | pulmonary disease with (acute) exacerbation Other forms of dyspnea Aug 28, 2017 | | [facility] Emergency Emergency Shortness of Breath Weakness | | Lymphedema, not elsewhere classified E.D. Visit Count (12 mo.)Facility Visits Low | | Acuity [facility] 1 0 [facility] 4 0 Total 5 0 | | Note: Visits indicate total known visits. Medicaid Low Acuity Dx are the number of | | primary diagnoses on the Medicaid's Low Acuity dx list. Recent Inpatient Visit | | SummaryAdmit Date Facility [facility] Type Major Type Diagnoses or Chief Complaint Sep | | 2017 [facility] General Medicine Inpatient Other forms of | | dyspnea Chronic obstructive pulmonary disease with (acute) exacerbation Hypoxemia | | Other specified soft tissue disorders PDMP ReportPDMP query found no report.Care | | ProvidersProvider PRC Type Phone Fax Service Dates LEAH MOTTA PA Physician | | Drill Runner [phone] Current ALYSSA Stevens Social | | Worker Current [facility] | | Provider Current Known AliasesNo [...] for additional information. 2018 [employer] | | [employer]. - [place], [place] - [email or web address] | |E.D. Visit Count (12 mo.) | |Facility Visits Low Acuity | |[facility] 1 0 | |[facility] 4 0 | |Total 5 0 | |Note: Visits indicate total known visits. Medicaid Low Acuity Dx are the number of primary diagnoses on the Medicaid's Low Acuity dx list. | | | |Recent Inpatient Visit Summary | |Admit Date Facility City State Type Major Type Diagnoses or Chief Complaint | |Sep 28, [address] [facility] [place]. [place] General Medicine Inpatient | | Other forms of dyspnea | | Chronic obstructive pulmonary disease with (acute) exacerbation | | Hypoxemia | | Other specified soft tissue disorders | | | | | | | |PDMP Report | |PDMP query found no report. | | | |Care Providers | |Provider PRC Type Phone Fax Service Dates | |LEAH MOTTA PA Physician Drill Runner Current | |ALYSSA Stevens Fence Manufacture Supervisor Current | |[facility] Provider Current | | | |Known [...] aforementioned facilities for additional information. | |2018 [employer] - [place], [place] - [email or web address] | + + + +---------+ + + | Performing | Address | City/State/Zipcode | Phone Number | | Organization | | | | + +---------+ + + | ED INFORMATION | | | | | EXCHANGE | | | | + +---------+ + + in this encounter Visit Diagnoses + + | Diagnosis | + + | Fall, initial encounter - Primary | + + | Closed compression fracture of first lumbar vertebra, initial encounter (HCC) | + + Admitting Diagnoses + + | Diagnosis | + + | Fall, initial encounter | + + | Closed compression fracture of first lumbar vertebra, initial encounter (HCC) | + + Administered Medications + +--------+ +-------+------+------+ | Medication Order | MAR | Action | Dose | Rate | Site | | | Action | Date | | | | + +--------+ +-------+------+------+ | ipratropium-albuterol (DUO-NEB) | Given | | 3 mLs | | | | 0.5-2.5 mg/3mL nebulizer | | 8 15:17 | | | | | solution 3 mL 3 mL, | | PDT | | | | | Nebulization, Once RT, Tia | | | | | | | 11/18/17 at 1432, For 1 dose | | | | | | + +--------+ +-------+------+------+ + +---+ | | | + +---+ | sodium chloride 0.9 % flush 10 | | | mL 10 mL, Intravenous, Every 8 | | | Hours, First dose on 11/18/17 | | | at 1432 | | + +---+ | | | + +---+ in this encounter
--- OUTSIDE RECORDS SUMMARY | ~2017-11-20 | XMS | Encounter Summary ---
Demographics + + + | Address | [address] | | | [place] [address] | + + + | Home Phone | | + + + | Preferred Language | Unknown | + + + | Marital Status | | + + + | Pentecostalism Affiliation | 1041 | + + + | Race | Unknown | + + + | Ethnic Group | Unknown | + + + Author + + + | Author | [facility] | + + + | Organization | [facility] | + + + | Address [...] Team Providers + +------+ + | Care Hair Sample Matcher Name | Role | Phone | + +------+ + | Julio Motta | PCP | | + +------+ + Encounter Details +--------+ + + + + | Date | Type | Department | Care Team | Description | +--------+ + + + + | 10/26/ | Telephone | [facility] | Jeana Solitario RN | | | 2017 | | Pulmonology [address] | | | | | | [address] | | | | | | [place] | | | | | | [address] | | | | | | [phone] | | | +--------+ + + + [...] Dr | | | | | | [facility] [address] | | | | | | [phone] | | | | | | | | +--------+---------+ + + + as of this encounter Visit Diagnoses Not on filein this encounter"
--- OUTSIDE RECORDS SUMMARY | ~2017-11-20 | XMS | Encounter Summary ---
Demographics + + + | Address | [address] | | | [place] [address] | + + + | Home Phone | | + + + | Preferred Language | Unknown | + + + | Marital Status | | + + + | Latter-Day Affiliation | 1041 | + + + | Race | Unknown | + + + | Ethnic Group | Unknown | + + + Author + + + | Author | [facility] | + + + | Organization | [facility] | + + + | Address [...] Team Providers + +------+ + | Care Senior Python Developer Name | Role | Phone | + +------+ + | Fracisco Guerrero MD | PCP | | + +------+ + Reason for Visit + + + | Reason | Comments | + + + | Weakness | | + + + | Shortness of Breath | | + + + Encounter Details +--------+ + + + + | Date | Type | Department | Care Team | Description | +--------+ + + + + | 08/28/ | Emergency | [facility] | Ivan Ann DO | Lymphedema (Primary | | 2018 | | Medical Center | Emergency | Dx); Generalized | | | | Emergency Department | Department [address] | weakness | | | | [address] | [address] | | | | | [place] [address] | [place] [address] | | | | | [phone] | [phone] | | | | | | | | +--------+ + + + + Social History + +-------+ +--------+ + | Tobacco Use | Types | Packs/Day | Years | Date | | | | | Used | | + +-------+ +--------+ + | Former Smoker | | | | Quit: 06/09/1997 | + +-------+ +--------+ [...] + + + | Blood Pressure | 121/69 | 08/28/2017 4:16 PM PDT | + + + + | Pulse | 91 | 08/28/2017 6:48 PM PDT | + + + + | Temperature | 36.6 C (97.8 F) | 08/28/2017 4:16 PM PDT | + + + + | Respiratory Rate | 18 | 08/28/2017 5:43 PM PDT | + + + + | Oxygen Saturation | 93% | 08/28/2017 6:48 PM PDT | + + + + | Inhaled Oxygen | - | - | | Concentration | | | + + + + | Weight | 100.2 kg (220 lb | 08/28/2017 4:16 PM PDT | | | 14.4 oz) | | + + + + | Height | - | - | + + + + | Body Mass Index | 32.62 | 08/28/2017 4:16 PM PDT | + + + + in this encounter Discharge Instructions The following attachments cannot be sent through Care Everywhere.Weakness (Uncertain Cause) (Kenyan)Lymphedema, Managing (Kenyan)in this encounter Medications at Time of Discharge + + +---------+---------+ + + | Medication | Sig. | Disp. | Refills | Start | End Date | | | | | | Date | | + + +---------+---------+ + + | budesonide | Take 0.5 mg by | | | | | | (PULMICORT) 0.5 | nebulization 2 (two) | | | | | | MG/2ML nebulizer | times daily. | | | | | | suspension | | | | | | + + +---------+---------+ + + | buPROPion | Take 300 mg by mouth | | | | | | (WELLBUTRIN XL) 300 | every morning. | | | | | | MG 24 hr tablet | | | | | | + + +---------+---------+ + + | ergocalciferol | Take 50,000 Units by | | | | | | (DRISDOL) 14335 | mouth once a week. | | | | | | units capsule | | | | | | + + +---------+---------+ + + | L-methylfolate | Take 15 mg by mouth | | | | | | (DEPLIN) 15 MG | daily with | | | | | | tablet | breakfast. | | | | | + + +---------+---------+ + + | lurasidone | Take 40 mg by mouth | | | | | | (LATUDA) 40 MG | daily. | | | | | | tablet | | | | | | + + +---------+---------+ + + | Methylcobalamin | Take 5,000 mcg by | | | | | | (METHYL B-12 PO) | mouth 2 (two) times | | | | | | | daily. | | | | | + + +---------+---------+ + + | OLANZapine | Take 10 mg by mouth | | | | | | (ZYPREXA) 20 MG | 2 (two) times daily. | | | | | | tablet | | | | | | + + +---------+---------+ + + | omeprazole | Take 20 mg by mouth | | | | | | (PRILOSEC) 20 MG | 2 (two) times daily. | | | | | | capsule | | | | | | + + +---------+---------+ + + | oxycodone (OXY-IR) | Take 1 capsule by | 30 | 0 | 06/11/19 | | | 5 MG capsule | mouth every 6 (six) | capsule | | 18 | | | | hours as needed. | | | | | + + +---------+---------+ + + | polyethylene | Take 17 g by mouth | | | | | | glycol (GLYCOLAX) | daily. | | | | | | packet | | | | | | + + +---------+---------+ + + | propranolol | Take 20 mg by mouth | | | | | | (INDERAL) 20 MG | 2 (two) times daily. | | | | | | tablet | | | | | | + + +---------+---------+ + + | sertraline | Take 50-100 [...] | | | | | + + +---------+---------+ + + | simvastatin | Take 40 mg by mouth | | | | | | (ZOCOR) 40 MG tablet | nightly. | | | | | + + +---------+---------+ + + | topiramate | Take 25 mg by mouth | | | | | | (TOPAMAX) 25 MG | 2 (two) times daily. | | | | | | tablet | | | | | | + + +---------+---------+ + + | Umeclidinium | Inhale 62.3 mcg into | | | | | | [place] (INCRUSE | the lungs every | | | | 8 | | [place]LL[place]) | morning. | | | | | + + +---------+---------+ + + as of this encounter Plan [...] Dr | | | | | | [place] [address] | | | | | | [phone] | | | | | | | [...] | + +--------+ + + + | [facility] CARD PANEL W/O | STAT | 08/28/2017 [...] | | + +--------+ + + + in this encounter Results US lower extremity venous right (08/28/2017 6:30 PM) + + + | Impressions | Performed At | + + + | 1. No evidence of lower extremity deep vein thrombosis. | [facility] | | | RADIOLOGY | + + + + + + | Narrative | Performed At | + + + | [facility] LOWER EXTREMITY VENOUS DOPPLER RIGHT | MARI [...] + | Chap[place], Rad Results In - 08/28/2017 6:37 PM PDT CHE[facility] Aayush [facility]IA[facility] LOWER EXTREMITY | | VENOUS DOPPLER [...] | + + + + + | [facility] | [address] | [place] [address] | | + + + + + XR Chest PA and Lateral (08/28/2017 5:29 PM) + + + | Impressions | Performed At | + + + | 1. No acute cardiopulmonary process noted. Electronically | [facility] | | signed by Luis Arroyo MD on 08/28/2017 5:32 PM | RADIOLOGY | + + + + + + | Narrative | Performed At | + + + | CHEKO Looney [place] 1950 67 years XR CHEST 2 VIEW FRONTAL | [facility] | | AND LATERAL 08/28/2017 5:29 PM INDICATION: Chest pain. | RADIOLOGY | | COMPARISON study: 06/08/2017 TECHNIQUE: 2 views | | | FINDINGS: Small amount of scarring involving the lower lungs. | | | Otherwise the lungs appear clear. Cardiomediastinal silhouette appears | | | unremarkable. Osseous structures appear unremarkable. No pleural | | | effusion seen. | | + + + + + | Procedure Note | + + | Chapito, Rad Results In - 08/28/2017 5:37 PM PDT CHEKO Looney [place]89 yearsXR | | CHEST 2 VIEW FRONTAL AND LATERAL6/ 5:29 PMINDICATION: Chest pain.COMPARISON | | study: 06/08/2017TECHNIQUE: 2 viewsFINDINGS: Small amount of scarring involving the lower | | lungs. Otherwise the lungs appear clear. Cardiomediastinal silhouette appears | | unremarkable. Osseous structures appear unremarkable. No pleural effusion | | seen.IMPRESSION:1. No acute cardiopulmonary process noted. | | | |COMPARISON study: 06/08/2017 | | | |TECHNIQUE: 2 views | | | |FINDINGS: Small amount of scarring involving the lower lungs. Otherwise the lungs appear c lear. Cardiomediastinal silhouette appears unremarkable. Osseous structures appear unremarka ble. No pleural effusion seen. | | | |IMPRESSION: | |1. No acute cardiopulmonary process noted. | | | | | + + + + + + + | Performing | Address | City/State/Zipcode | Phone Number | | Organization | | | | + + + + + | [facility] | [address] | [place] [address] | | + + + + + POC cardiac troponin (08/28/2017 5:05 PM) + + + + + | Component | Value | Ref Range | Performed At | + + + + + | POC CARDIAC TROPONIN | 0.00Comment: 0.00 to | 0.00 - 0.10 ng/mL | [facility] | | | 0.10 Consistent [...] for Acute | | | | | [place] Testing performed at | | | | | [facility];[address] | [address] | [address];[place] [address] | | | + + + + + + + + + + | Performing | Address | City/State/Zipcode | Phone Number | | Organization | | | | + + + + + | [facility] | [address] | [place] [address] | | + + + + + BNP (08/28/2017 4:50 PM) + + + + + | Component | Value | Ref Range | Performed At | + + + + + | BRAIN NATRIURETIC | 33.1Comment: Testing | 0 - 100 pg/mL | [facility] | | PEPTIDE | performed at [facility];[address] | | | | | [address];[place] | | | | | [address] | | | + + + + + + + | Specimen | + + | Blood | + + + + + + + | Performing | Address | City/State/Zipcode | Phone Number | | Organization | | | | + + + + + | [facility] | [address] | [place] [address] | | + + + + + Cardiac Panel (08/28/2017 4:50 PM) + + + + + | Component | Value | Ref Range | Performed At | + + + + + | WBC | 5.47 | 3.80 - 11.00 K/uL | [facility] | + + + + + | RBC | 4.26 | 4.20 - 5.70 M/uL | [facility] | + + + + + | HGB | 13.7 | 13.2 - 17.0 g/dL | [facility] | + + + + + | HCT | 40.5 | 39.0 - 50.0 % | [facility] | + + + + + | MCV | 95.2 | 80.0 - 100.0 fl | [facility] | + + + + + | MCH | 32.3 | 27.0 - 34.0 pg | [facility] | + + + + + | MCHC | 33.9 | 32.0 - 35.5 g/dL | [facility] | + + + + + | RDW SD | 51.2 | 37 - 53 fl | [facility] | + + + + + | PLT | 175 | 150 - 400 K/uL | [facility] | + + + + + | MPV | 9.0 | fl | [facility] | + + + + + | DIFF TYPE | AUTOMATED | | [facility] | + + + + + | NEUTROPHILS | 56.11 | % | [facility] | + + + + + | LYMPHOCYTES | 25.77 | % | [facility] | + + + + + | MONOCYTES | 11.74 | % | [facility] | + + + + + | EOSINOPHILS | 5.37 | % | [facility] | + + + + + | BASOPHILS | 1.01 | % | [facility] | + + + + + | NEUTROPHILS ABS | 3.07 | 1.90 - 7.40 K/uL | [facility] | + + + + + | LYMPHOCYTES ABS | 1.41 | 1.00 - 3.90 K/uL | [facility] | + + + + + | MONOCYTES ABS | 0.64 | 0.00 - 0.80 K/uL | [facility] | + + + + + | EOSINOPHILS ABS | 0.29 | 0.00 - 0.50 K/uL | [facility] | + + + + + | BASOPHILS ABS | 0.06 | 0.00 - 0.10 K/uL | [facility] | + + + + + | SODIUM | 142 | 135 - 145 mmol/L | [facility] | + + + + + | POTASSIUM | 3.9 | 3.5 - 4.9 mmol/L | [facility] | + + + + + | CHLORIDE | 108 | 99 - 109 mmol/L | [facility] | + + + + + | CO2 | 27 | 23 - 32 mmol/L | [facility] | + + + + + | ANION GAP AGAP | 11 | 5 - 20 mmol/L | [facility] | + + + + + | GLUCOSE | 102 (H) | 65 - 99 mg/dL | [facility] | + + + + + | BUN | 14 | 8 - 25 mg/dL | [facility] | + + + + + | CREATININE | 0.80 | 0.70 - 1.30 mg/dL | [facility] | + + + + + | BUN/CREAT | 17 | | [facility] | + + + + + | CALCIUM | 8.9 | 8.5 - 10.5 mg/dL | [facility] | + + + + + | TOTAL PROTEIN | 6.8 | 6.3 - 8.2 g/dL | [facility] | + + + + + | Albumin | 3.3 | 3.3 - 4.8 g/dL | [facility] | + + + + + | GLOBULIN | 3.6 | 1.3 - 4.9 g/dL | [facility] | + + + + + | A/G | 0.9 (L) | 1.0 - 2.4 | [facility] | + + + + + | TBIL | 0.2 | 0.1 - 1.5 mg/dL | [facility] | + + + + + | ALK PHOS | 74 | 35 - 115 U/L | [facility] | + + + + + | AST | 20 | 10 - 45 U/L | [facility] | + + + + + | ALT | 33 | 10 - 65 U/L | [facility] | + + + + + | EGFR | >60Comment: GFR <60: | >60 mL/min/1.73m2 | [facility] | | | CHRONIC KIDNEY [...] IDMS traceable | | | | | equation. PLEASE NOTE | | | | | NEW CALCULATION | | | | | EFFECTIVE 07/31/2017 | | | + + + + + | CPK | 52 (L) | 55 - 400 U/L | [facility] | + + + + + | INR | 1.0Comment: REFERENCE | | [facility] | | | RANGE:0.9 - | | | | | 1.2 NON-ANTICOAGULATE | | | | | D2.0 - 3.0 ALL OTHER | | | | | THERAPEUTIC | | | | | INDICATIONS2.5 - 3.5 | | | | | MECHANICAL HEART VALVES, | | | | | RECURRENT OR SYSTEMIC | | | | | EMBOLISM | | | + + + + + | APTT | 29 | 23 - 32 seconds | [facility] | + + + + + | MMB | <1.0 | 0.5 - 3.6 ng/mL | [facility] | + + + + + | CK-MB Index | UNABLE TO | | [facility] | | | CALCULATEComment: | | | | | Testing performed at | | | | | [facility];[address];[place] [address] | | | + + + + + + + + + + | Performing | Address | City/State/Zipcode | Phone Number | | Organization | | | | + + + + + | [facility] | [address] | [facility] [place] [address] | | + + + + + EKG 12 LEAD UNIT PERFORMED (08/28/2017 4:47 PM) + + + + + | Component | Value | Ref Range | Performed At | + + + + + | Ventricular Rate | 71 | BPM | [facility] | + + + + + | Atrial Rate | 71 | BPM | [facility] | + + + + + | P-R Interval | 160 | ms | [facility] | + + + + + | QRS Duration | 82 | ms | [facility] | + + + + + | Q-T Interval | 398 | ms | [facility] | + + + + + | QTC Calculation | 432 | ms | [facility] | | (Bezlivier) | | | | + + + + + | Calculated P [place] | 23 | degrees | [facility] | + + + + + | Calculated R [place] | 21 | degrees | [facility] | + + + + + | Calculated T [place] | 25 | degrees | [facility] | + + + + + | Diagnosis | Normal sinus | | [facility] | | | rhythmIncreased R/S | | | | | ratio in V1, consider | | | | | early transition or | | | | | posterior | | | | | infarctAbnormal ECGWhen | | | | | compared with ECG of | | | | | 08-JUN-2017 22:03,No | | | | | significant change [...] | | | | | ONLY, -COMPUTER ([id number]), | | | | | visual effects editor Diomedes Lo | | | | | Roque ([id number]) on 08/28/2017 | | | | | 9:43:27 PM | | | + + + + + + + + + + | Performing | Address | City/State/Zipcode | Phone Number | | Organization | | | | + + + + + | [facility] | [address] | [place] [address] | | + + + + + Urinalysis (reflex to microscopic/reflex to culture) (08/28/2017 4:01 PM) + + + + + | Component | Value | Ref Range | Performed At | + + + + + | COLOR UA | STRAW | | [facility] | + + + + + | CLARITY | CLEAR | | [facility] | + + + + + | Specific [place], UA | 1.004 | 1.002 - 1.030 | [facility] | + + + + + | LEUKOCYTE ESTERASE | NEGATIVE | NEGATIVE | [facility] | + + + + + [...] KETONES | NEGATIVE | NEGATIVE mg/dL | [facility] | + + + + + | BILIRUBIN | NEGATIVE | NEGATIVE | [facility] | + + + + + | GLUCOSE | NEGATIVEComment: Testing | NEGATIVE mg/dL | [facility] | | | performed at [facility];[address] | | | | | [address];[place] | | | | | [address] | | | + + + + + + + | Specimen | + + | Urine, Clean Catch | + + + + + + + | Performing | Address | City/State/Zipcode | Phone Number | | Organization | | | | + + + + + | [facility] | [address] | [place] [address] | | + + + + + in this encounter Visit Diagnoses + + | Diagnosis | + + | Lymphedema - Primary | + + | Other lymphedema | + + | Generalized weakness | + + | Other malaise and fatigue | + + Admitting Diagnoses + + | Diagnosis | + + | Lymphedema | + + | Other lymphedema | + + | Generalized weakness | + + | Other malaise and fatigue | + + Administered Medications + +--------+---------+------+------+------+ | Medication Order | MAR | Action | Dose | Rate | Site | | | Action | Date | | | | + +--------+---------+------+------+------+ + +---+ | sodium chloride 0.9 % flush 10 | | | mL 10 mL, Intravenous, Every 8 | | | Hours, First dose on Sun08/28/17 | | | at 1643 | | + +---+ | | | + +---+ in this encounter"
--- OUTSIDE RECORDS SUMMARY | ~2017-11-20 | XMS | Encounter Summary ---
Demographics + + + | Address | [address] | | | [place] [address] | + + + | Home Phone | | + + + | Preferred Language | Unknown | + + + | Marital Status | | + + + | Yazidi Affiliation | 1041 | + + + | Race | Unknown | + + + | Ethnic Group | Unknown | + + + Author + + + | Author | [facility] | + + + | Organization | [facility] | + + + | Address [...] Team Providers + +------+ + | Care Aircraft Avionics Technician Name | Role | Phone | [...] MD Barbara | | | | | ([facility]) | TATONE | [address] | | | | | Hypoxemia | [place] | | | | | | Pulmonary | [address] | [place], [place] | | | | | nodules | Phone: | [address] Phone: | | | | | | [phone] | [phone] | | | | | | Fax: | Fax: | | | | | | [phone] | [phone] | + +--------+ + + + + Encounter Details +--------+---------+ + + + | Date | Type | Department | Care Team | Description | +--------+---------+ + + + | 09/27/ | Office | [facility] | Guero, | Asthma with COPD | | 2018 | Visit | Pulmonology [address] | Luzmaria Jimenez, | (chronic obstructive | | | | [place] | [address] | pulmonary disease) | | | | [place], [place] | [place] [address] | ([facility]) (Primary Dx); | | | | [address] | [phone] | Nocturnal hypoxemia; | | | | [phone] | | Multiple pulmonary | | | [...] 2 years ago. 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 He underwent IR embolization and ex lap for this. He was found to have a bleeding ulcer, but no evidence of malignancy. He was recently admitted in [facility] in June for an acute worsening of [...] his side to sleep. He snores at [facility]. He denies dysphagia or aspiration episodes. He also denies heart burn or reflux s/s. He h as no seasonal allergies. He comes in with a home health care provider and his sister. SOCIAL HISTORY He is a past smoker, stopped 20 years ago, 2-3 packs a day for 30 years. 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 He denies any occupational exposures. He is origin ally from [place] and moved to [place] in 1979. He has no animals at [...] cough, shortness of breath and wheezing. Negat zca for choking, chest tightness and stridor. Cardiovascular: [...] Hypoxemia 06/09/2017 COPD (chronic obstructive pulmonary disease) ([facility]) 06/09/2017 Schizoaffective disorder ([facility]) 06/09/2017 Essential hypertension 06/09/2017 Memory deficits 06/09/2017 Resolved Ambulatory Problems Diagnosis Date Noted Weakness 06/09/2017 Past Medical History: Diagnosis Date Back injury Bleeding ulcer COPD (chronic obstructive pulmonary disease) ([facility]) Head injury Other chronic pain Schizoaffective disorder ([facility]) History reviewed. No pertinent surgical history. [...] O2 supplementation at night at 2LPM. His home care manager was instructed to let us know if [...] apnea) I suspect that he has untreated JONEL and I have encouraged him to talk [...] Jack MD Pulmonary and Critical Care Medicine [facility] [address] [place] [address] . in this encounter Plan of Treatment +--------+---------+ + + + | Date | Type | Specialty | Care Team | Description | +--------+---------+ + + + | 12/21/ | Office | Pulmonology | [place], | | | 2017 | Visit | | Luzmaria Jimenez, | | | | | | MD [address] | | | | | | [place] [address] | | | | | | [phone] | | | | | | | [...]
--- OUTSIDE RECORDS SUMMARY | ~2017-11-20 | XMS | Encounter Summary ---
Demographics + + + | Address | [address] | | | [place] [address] | + + + | Home Phone | | + + + | Preferred Language | Unknown | + + + | Marital Status | | + + + | Orthodox Affiliation | 1041 | + + + | Race | Unknown | + + + | Ethnic Group | Unknown | + + + Author + + + | Author | [facility] | + + + | Organization | [facility] | + + + | Address [...] Team Providers + +------+ + | Care Nitroglycerin Distributor Name | Role | Phone | + [...] + + | 11/18/ | Emergency | [facility] | | Fall, initial | | 2017 | | [facility] Center | | encounter (Primary | | | | Emergency Department | | Dx); Closed | | | | [address] | | compression fracture | | | | [place] [address] | | of first lumbar | | | | [phone] | | vertebra, initial | | | [...] sent through Care Everywhere.Fracture, Vertebral Compre ssion (Lebanese)in this encounter Medications at Time of Discharge [...] | | | | | | (DRISDOL) [address] | mouth once a week. | | [...] | | | | | ([facility]) | | | | | | + [...] Dr | | | | | | [place] [address] | | | | | | [phone] | | | | | | | [...] | + + + + + | [facility] | [address] | [place] [address] | | + + + + + [...] HISTORY: Cough. Congestion. Question pneumonia. COMPARISON: | [facility] | | 09/28/17. TECHNIQUE: AP and lateral [...] | + + + + + | [facility] | [address] | [place] [address] | | + + + + + [...] MARI MCKENZIE | [address] | [place] [address] | | + + + + + Urinalysis (reflex to micro/reflex to culture) (11/18/2017 2:48 PM) + + + + + | Component | Value | Ref Range | Performed At | + + + + + | COLOR UA | YELLOW | | [facility] | + + + + + | CLARITY | HAZY | | [facility] | + + + + + | Specific [place], UA | 1.013 | 1.002 - 1.030 | [facility] | + + + + + | LEUKOCYTE ESTERASE | NEGATIVE | NEGATIVE | [facility] | + + + + + | NITRITE | NEGATIVE | NEGATIVE | [facility] | + + + + + | UROBILINOGEN | NORMAL | <1.1 mg/dL | [facility] | + + + + + | PROTEIN | NEGATIVE | NEGATIVE mg/dL | [facility] | + + + + + [...] [facility] | | | performed at [facility] | [address];[place] | | | | | [address] | | | + + + + + + + | Specimen | + + | Urine, Clean Catch | + + + + + + + | Performing | Address | City/State/Zipcode | Phone Number | | Organization | | | | + + + + + | [facility] | [address] | [place] [address] | | + + + + + Septic Lactic Acid (11/18/2017 2:35 PM) + + + + + | Component | Value | Ref Range | Performed At | + + + + + | LACTIC ACID | 1.3Comment: Testing | 0.4 - 2.0 mmol/L | [facility] | | | performed at [facility] | | | | | [address];[place] | | | | | [address] | | | + + + + + + + + + + | Performing | Address | City/State/Zipcode | Phone Number | | Organization | | | | + + + + + | [facility] | [address] | [place] [address] | | + + + + + Troponin I, Lab (11/18/2017 2:35 PM) + + + + + | Component | Value | Ref Range | Performed At | + + + + + | TROPONIN I | <0.020Comment: 0.00 to | 0.00 - 0.10 ng/mL | [facility] | | | 0.10 CONSISTENT | [...] | | | | CRITERIA FOR ACUTE SC | | | | | Testing performed at | | | | | [facility];[address] [place] [address] | | | | | Blvd;[place] [address] | | | + + + + + + + | Specimen | + + | Blood | + + + + + + + | Performing | Address | City/State/Zipcode | Phone Number | | Organization | | | | + + + + + | [facility] | [address] | [place] [address] | | + + + + + [...] 7.1 | 6.3 - 8.2 g/dL | [facility] | + + + + + [...] 80 | 35 - 115 U/L | [facility] | + + + + + | AST | 19 | 10 - 45 U/L | [facility] | + + + + + | ALT | 25 | 10 - 65 U/L | [facility] | + + + + + | EGFR | >60Comment: GFR <60: | >60 mL/min/1.73m2 | [facility] | | | CHRONIC KIDNEY DISEASE, [...] the | | | | | MDRD SCMS traceable | | | | | equation.Testing | | | | | performed at [facility] | | | | | [facility];[place], [place] | | | | | [address] | | | + + + + + + + | Specimen | + + | Blood | + + + + + + + | Performing | Address | City/State/Zipcode | Phone Number | | Organization | | | | + + + + + | [facility] | [address] | [facility] [place] [address] | | + + + + + [...] | MPV | 8.6 | fl | [facility] | + + + + + [...] Testing | 0.00 - 0.10 K/uL | [facility] | | | performed at [facility];[address];[place] | | | | | [address] | | | + + + + + + + | Specimen | + + | Blood | + + + + + + + | Performing | Address | City/State/Zipcode | Phone Number | | Organization | | | | + + + + + | [facility] | [address] | [place] [address] | | + + + + + [...] + + + + | Calculated P [place] | 46 | degrees | [facility] | + + + + + | Calculated R [place] | 25 | degrees | [facility] | + + + + + | Calculated T [place] | 40 | degrees | [facility] | + + + + + | Diagnosis | Normal sinus | | [facility] | | | rhythmNormal ECGWhen | [...] | | | | | ONLY, -COMPUTER ([id number]), | | | | | 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 | [place] [address] | | + + + + + ED INFORMATION EXCHANGE (11/18/2017 1:59 PM) + + + | Narrative | Performed At | + + + | [id number] This patient has registered at the | ED | | [facility] Emergency Department For more | INFORMATION | | information visit: | EXCHANGE | | [email or web address] | | | [id number] Security Events No recent Security Events currently on file | | | ED Care Guidelines from [facility] Last Updated: 08/29/17 | | | 9:04 AM Additional Information: Currently placed at [place] | | | [facility], please contact Glo | | | [place] [phone].Prescription medication goes through [facility], | | | [phone]. These are guidelines and the provider should exercise | | | clinical judgment when providing care. Recent Emergency Department | | | Visit Summary Admit Date Facility City State Type Major Type | | | Diagnoses or Chief Complaint [facility] | | [place] [facility] Emergency increased confusion, | | | dizziness, weakness, and coughing. pt has UTI, MRSA, and recent hx of | | | pneumonia Nov 09, 2017 [facility] [place]. [place] | | | Emergency Emergency Chief Complaint: URO MALE Sep 28, 2017 | | | [facility] Emergency Emergency | | | Weakness Shortness of Breath Chronic obstructive | | | pulmonary disease with (acute) exacerbation Other forms of | | | dyspnea Aug 28, 2017 [facility] | | | Emergency Emergency Shortness of Breath Weakness | | | Lymphedema, not elsewhere classified E.D. Visit Count | | | (12 mo.) Facility Visits Low Acuity [facility] | | | System 1 0 [facility] 4 0 Total 5 0 Note: | | | Visits indicate total known visits. Medicaid Low Acuity Dx are the | | | number of primary diagnoses on the Medicaid's Low Acuity dx list. | | | Recent Inpatient Visit Summary Admit Date Facility [facility] State | | | Type Major Type Diagnoses or Chief Complaint Sep 28, 2017 [facility] | | | [facility] General Medicine Inpatient Other | | | forms of dyspnea Chronic obstructive pulmonary disease with | | | (acute) exacerbation Hypoxemia Other specified soft | | | tissue disorders PDMP Report PDMP query found no report. | | | Care Providers Provider PRC Type Phone Fax Service Dates [facility], | | | EULALIO AVILA Physician Orbitread Operator | | | Current Jim Chang René Subscription Clerk [phone] | | | [phone] Current [facility] | | | Health Provider Current Known [...] | | facilities for additional information. 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 - [place], [place] - | | | [email or web address] | | + + + + + | Procedure Note | + + | Interface, Lab - 11/18/2017 2:00 PM PDT Formatting of this note may be different | | from the original.[id number] [id number] patient has registered at the [facility] | | [facility] Emergency Department For more information visit: | | [email or web address] Security | | EventsNo recent Security Events currently on fileED Care Guidelines from [place] | | [place] Updated: 08/29/17 9:04 AM Additional Information:Currently placed at | | [facility], please contact Glo [place] | | [phone].Prescription medication goes through [facility], .These are | | guidelines and the provider should exercise clinical judgment when providing care.Recent | | Emergency Department Visit SummaryAdmit Date Facility [facility] Type Major Type | | Diagnoses or Chief Complaint Nov 18, 2017 [facility] Emergency | | Emergency increased confusion, dizziness, weakness, and coughing. pt has UTI, MRSA, | | and recent hx of pneumonia Nov 09, 2017 [facility] [place]. [place] | | Emergency Emergency Chief Complaint: URO MALE Sep 28, 2017 [facility] | | [facility] Emergency Emergency Weakness Shortness of Breath Chronic obstructive | | pulmonary disease with (acute) exacerbation Other forms of dyspnea Aug 28, 2017 | | [facility] Emergency Emergency Shortness of Breath Weakness | | Lymphedema, not elsewhere classified E.D. Visit Count (12 mo.)Facility Visits Low | | Acuity [facility] 1 0 [facility] 4 0 Total 5 0 | | Note: Visits indicate total known visits. Medicaid Low Acuity Dx are the number of | | primary diagnoses on the Medicaid's Low Acuity dx list. Recent Inpatient Visit | | SummaryAdmit Date Facility [facility] Type Major Type Diagnoses or Chief Complaint Sep | | 2017 [facility] General Medicine Inpatient Other forms of | | dyspnea Chronic obstructive pulmonary disease with (acute) exacerbation Hypoxemia | | Other specified soft tissue disorders PDMP ReportPDMP query found no report.Care | | ProvidersProvider PRC Type Phone Fax Service Dates LEAH MOTTA PA Physician | | Orbitread Operator [phone] Current ALYSSA Stevens Social | | Worker Current [facility] | | Provider Current Known AliasesNo [...] for additional information. 2018 [employer] | | [employer] - [place], [place] - [email or web address] | |E.D. Visit Count (12 mo.) | |Facility Visits Low Acuity | |[facility] 1 0 | |[facility] 4 0 | |Total 5 0 | |Note: Visits indicate total known visits. Medicaid Low Acuity Dx are the number of primary diagnoses on the Medicaid's Low Acuity dx list. | | | |Recent Inpatient Visit Summary | |Admit Date Facility City State Type Major Type Diagnoses or Chief Complaint | |Sep 28, 2017 [facility] [place]. [place] General Medicine Inpatient | | Other forms of dyspnea | | Chronic obstructive pulmonary disease with (acute) exacerbation | | Hypoxemia | | Other specified soft tissue disorders | | | | | | | |PDMP Report | |PDMP query found no report. | | | |Care Providers | |Provider PRC Type Phone Fax Service Dates | |LEAH MOTTA PA Physician Orbitread Operator Current | |ALYSSA Stevens Subscription Clerk Current | |[facility] Provider Current | | | |Known [...] aforementioned facilities for additional information. | |2018 [email or web address] - [place], [place] - [email or web address] | + + + +---------+ + + [...]
--- OUTSIDE RECORDS SUMMARY | ~2017-11-20 | XMS | Clinical Summary ---
Demographics + + + | Address | [address] | | | [place] [address] | + + + | Home Phone | | + + + | Preferred Language | Unknown | + + + | Marital Status | Single | + + + | Uatsdin Affiliation | CHR | + + + [...] Team Providers + +------+ + | Care Regional Operations Manager Name | Role | Phone | + +------+ + | Fracisco Guerrero MD | PP | | + +------+ + Source Comments JIMI is fully live on both EpicCare Ambulatory and EpicCare InPatient.[facility] Allergies + + + + + [...]
--- OUTSIDE RECORDS SUMMARY | ~2017-11-20 | XMS | Encounter Summary ---
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 | Role | Phone | [...] | | Internal | Diagnoses | | [facility] 8th | | | | Medicine | Dyspnea on | | [address] | | | | | exertion | | [address] | | | | | COPD with | | [address] | | | | | acute | | [place], [place] | | | | | exacerbation | | [address] Phone: | | | | | ([facility]) | | [phone] | +--------+--------+ + + + + Encounter Details +--------+ + + + + | Date | Type | Department | Care Team | Description | +--------+ + + + + | 09/28/ | Hospital | [facility] | Delfino Ochoa | COPD with acute | | 2018 - | Encounter | [facility] 8th | D, DO [address] | exacerbation (HCC) | | | | [address] | Blvd [place], [place] | (Primary Dx); | | 10/01/ | | [address] | [address] | Dyspnea on exertion; | | 2017 | | [place] [address] | Beata Jones DO | Hypoxemia; Leg | | | | [phone] | [address] | swelling | | | | | [place] [address] | | | | | | [phone] | | | | | | | | | | | | Ursula Friedman MD [address] | | | | [address] | | | | | | [place] [address] | | | | | | [phone] | | | | | | | [...] note may be different from the or [facility] Service: Hospitalist Discharge Summary Date of Admission: [...] 29 2017 12:56AM Referrin anderson Provider Line: [phone] ID: [id number] Us Lower Extremity Venous Doppler Bilateral Result Date: 09/28/2017 1. No evidence of lower extremity deep vein thrombosis. F HISTORY OF PRESENTATION: Cheko Howell is a 67 y.o. male with PMH significant for pHTN, COPD, JONEL, schiz oaffective disorder admitted for SOB. Pt is a resident of a assisted in [place]. Pt use s nocturnal o2 but refuses [...] COPD (chronic obstructive pulmonary disease) ([facility]) 09/27/2017 Back injury Bleeding ulcer COPD (chronic obstructive pulmonary disease) ([facility]) Head injury JONEL (obstructive sleep apnea) 09/27/2017 Other chronic pain Schizoaffective disorder ([facility]) History reviewed. No pertinent surgical history. Allergies [...] as needed for Cough. 09/27/2017@PM ergocalciferol (DRISDOL) 41113 units capsule Take 50,000 Units by mouth [...] Procedure Component Value Units Date/Time Sputum culture [[id number]] Collected: 09/29/17 0800 Specimen: Sputum from Sputum [...] WILL BE HELD 48 HOURS. Respiratory Filmarray [[id number]] Collected: 09/28/17 2234 Specimen: Nasopharyngeal Culture Updated: [...] Return to [facility] 2. Complete antibiotics Disposition: [facility] Condition: Improved/good Code Status: DNR/DNI No discharge [...] Refills: 0 Commonly known as: DELSYM ergocalciferol 58300 units capsule Refills: 0 Commonly known as: [...] Your Medications These medications were sent to [facility] - [address] [address] levofloxacin 750 MG tablet You can get [...] | | | | | | (DRISDOL) 01347 | mouth once a week. | | [...] | | | | | ([facility]) | | | | | | + + + +---------+ + + as of this encounter Progress Notes Ursula Friedman MD - 09/30/2017 7:47 AM PDTFormatting of this note may be different from the or iginal. [facility] Service: Hospitalist Progress Note Hospital Day: LOS: 2 days Hospital Course: 67 y/o CM with PMH significant for pHTN, COPD, JONEL, schizoaffective disorder admitted for S OB. Pt is a resident of a assisted in [place]. Pt uses nocturnal o2 but refuses CPAP. [...] Procedure Component Value Units Date/Time Sputum culture [[id number]] Collected: 09/29/17 0800 Specimen: Sputum from Sputum [...] WILL BE HELD 48 HOURS. Respiratory Filmarray [[id number]] Collected: 09/28/17 2234 Specimen: Nasopharyngeal Culture Updated: [...] 29 2017 12:56AM Referrin anderson Provider Line: [phone] ID: [id number] Us Lower Extremity Venous Doppler Bilateral Result Date: 09/28/2017 1. No evidence of lower extremity deep vein thrombosis. LEM LIST Principal Problem: Hypoxemia Active Problems: BMI 31.0-31.9,adult Schizoaffective disorder (HCC) Leg swelling COPD (chronic obstructive pulmonary disease) ([facility]) ASSESSMENT & PLAN 1. Acute on chronic [...] continue home meds, stable. Pt lives at assisted 4. Obesity BMI 32 5. JONEL pt [...] may be different from the or iginal. [facility] Service: Hospitalist Progress Note Hospital Day: LOS: 1 day Hospital Course: 67 y/o CM with PMH significant for pHTN, COPD, JONEL, schizoaffective disorder admitted for S OB. Pt is a resident of a assisted in [place]. Pt uses nocturnal o2 but refuses CPAP. [...] Procedure Component Value Units Date/Time Sputum culture [[id number]] Collected: 09/29/17 0800 Specimen: Sputum from Sputum Updated: 09/29/17 0808 Respiratory Filmarray [[id number]] Collected: 09/28/17 2234 Specimen: Nasopharyngeal Culture Updated: [...] 29 2017 12:56AM Brianrin anderson Provider Line: [phone] ID: [id number] Us Lower Extremity Venous Doppler Bilateral Result Date: 09/28/2017 1. No evidence of lower extremity deep vein thrombosis. LEM LIST Principal Problem: Hypoxemia Active Problems: BMI 31.0-31.9,adult Schizoaffective disorder (HCC) Leg swelling COPD (chronic obstructive pulmonary disease) ([facility]) ASSESSMENT & PLAN 1. Acute on chronic [...] continue home meds, stable. Pt lives at assisted 4. Obesity BMI 32 5. JONEL pt [...] Code Ursula Friedman MD 09/29/2017 Dakota Lopez, [facility] - 09/28/2017 9:03 PM PDTNote ccl 92.3ml/min meds reviewed pharma cy will follow [facility] 2[address]in this encounter Plan of Treatment +--------+---------+ + + + | Date | Type | Specialty | Care Team | Description | +--------+---------+ + + + | 12/21/ | Office | Pulmonology | Guero, | | | 2018 | Visit | | Luzmaria Jimenez, | | | | | | MD [address] | | | | | | [place] [address] | | | | | | [phone] | | | | | | | [...] PROCALCITONIN | 0.15Comment: | <0.5 ng/mL | [facility] | | | INTERPRETIVE [...] performed | | | | | at [facility];[address] [place] [address] | | | | | [facility];[place] [address] | | | + + + + + + + + + + | Performing | Address | City/State/Zipcode | Phone Number | | Organization | | | | + + + + + | [facility] | [address] | [place] [address] | | + + + + + [...] 0.8 | 0.70 - 1.30 mg/dL | [facility] | | | | | LABORATORY | + + + + + | BUN/CREAT | 21 | | [facility] | | | | | LABORATORY | + + + + + | CALCIUM | 8.8 | 8.5 - 10.5 mg/dL | [facility] | | | | | LABORATORY | + + + + + | EGFR | >60Comment: GFR <60: | >60 mL/min/1.73m2 | [facility] | | | CHRONIC KIDNEY DISEASE, | [...] | | | | | performed at [facility], [address] | | | | | [facility], | | | | | [place] [address] | | | + + + + + + + | Specimen | + + | Blood | + + + + + + + | Performing | Address | City/State/Zipcode | Phone Number | | Organization | | | | + + + + + | [facility] | [address] [place] [address] | [place] [address] | [phone] | | LABORATORY | [address] | | [...] | [facility] | | | performed at [facility], [address] | | LABORATORY | | | [address], | | | | | [place] [address] | | | + + + + + + + | Specimen | + + | Blood | + + + + + + + | Performing | Address | City/State/Zipcode | Phone Number | | Organization | | | | + + + + + | [facility] | [address] [facility] [address] | [place] [address] | [phone] | | LABORATORY | [address] | | [...] | | | | | performed at [facility], [address] | | | | | [facility], | | | | | [place] [address] | | | + + + + + + + | Specimen | + + | Blood | + + + + + + + | Performing | Address | City/State/Zipcode | Phone Number | | Organization | | | | + + + + + | [facility] | [address] [place] [address] | [place] [address] | [phone] | | LABORATORY | [facility]. | | | + + + [...] | [facility] | | | performed at [facility], [address] | | LABORATORY | | | [place], | | | | | [place] [address] | | | + + + + + + + | Specimen | + + | Blood | + + + + + + + | Performing | Address | City/State/Zipcode | Phone Number | | Organization | | | | + + + + + | [facility] | [address] | [place] [address] | [phone] | | LABORATORY | [address]vd[address] | | [...] + + + + | [facility] | [address] | [place] [address] | [phone] | | LABORATORY | [address] | | [...] | | | | | performed at [facility], [address] | | | | | [facility], | | | | | [place] [address] | | | + + + + + + + | Specimen | + + | Blood | + + + + + + + | Performing | Address | City/State/Zipcode | Phone Number | | Organization | | | | + + + + + | [facility] | [address] | [place] [address] | [phone] | | LABORATORY | [address] | | [...] performed at | | | | | [facility], [address] [facility] | | | | | [facility], [place] | | | | | [address] | | | + + + + + + + | Specimen | + + | Blood | + + + + + + + | Performing | Address | City/State/Zipcode | Phone Number | | Organization | | | | + + + + + | [facility] | [address] [facility] [address] | [place] [address] | [phone] | | LABORATORY | [address]vd[address] | | | + + + + + Phosphorus (09/29/2017 4:47 AM) + + + + + | Component | Value | Ref Range | Performed At | + + + + + | PHOSPHORUS | 2.1 (L)Comment: Testing | 2.3 - 4.8 mg/dL | [facility] | | | performed at [facility], [address] | | LABORATORY | | | [facility], | | | | | [place] [address] | | | + + + + + + + | Specimen | + + | Blood | + + + + + + + | Performing | Address | City/State/Zipcode | Phone Number | | Organization | | | | + + + + + | [facility] | [address] | [place] [address] | [phone] | | LABORATORY | [address] | | | + + + + + Magnesium (09/29/2017 4:47 AM) + + + + + | Component | Value | Ref Range | Performed At | + + + + + | MAGNESIUM | 2.3Comment: Testing | 1.7 - 2.4 mg/dL | [facility] | | | performed at [facility], [address] | | LABORATORY | | | [facility] [address], | | | | | [place] [address] | | | + + + + + + + | Specimen | + + | Blood | + + + + + + + | Performing | Address | City/State/Zipcode | Phone Number | | Organization | | | | + + + + + | [facility] | [address] [facility] [address] | [place] [address] | [phone] | | LABORATORY | [address]vd[address] | | [...] 12:56AM Referring Provider Line: | | | [phone] ID: [id number] | | + + + [...] Sep 29 2017 12:56AM Referring Provider Line: [phone] ID: [id number] | | | |Mediastinum: Heart [...] 29 2017 12:56AM Referring Provider Line: [phone] ID: [id number] | + + + + + + + | Performing | Address | City/State/Zipcode | Phone Number | | Organization | | | | + + + + + | [facility] | [address] | [place] [address] | | + + + + + POC Arterial Blood Gas (09/28/2017 11:11 PM) + + + + + | Component | Value | Ref Range | Performed At | + + + + + | pH, Art | 7.341 (L) | 7.350 - 7.450 | [facility] | + + + [...] 97 | 95 - 98 % | [facility] | + + + + + | POC COMMENTS | Christian Test not | | [facility] | | | indicatedComment: Site = | | | | | right radialTesting | | | | | performed at [facility] | | | | | [address];[place], [place] | | | | | [address] | | | + + + + + + + + + + | Performing | Address | City/State/Zipcode | Phone Number | | Organization | | | | + + + + + | [facility] | [address] | [place] [address] | | + + + + + [...] at | | | | | [facility], [address] [place] [address] | | | | | [place] | | | | | [address] | | | + + + + + + + | Specimen | + + | Nasopharyngeal | | Culture | + + + + + + + | Performing | Address | City/State/Zipcode | Phone Number | | Organization | | | | + + + + + | [facility] | [address] [facility] [address] | [place] [address] | [phone] | | LABORATORY | [address] | | [...] | + + + + + | [facility] | [address] | [place] [address] | | + + + + + aPTT (09/28/2017 8:09 PM) + + + + + | Component | Value | Ref Range | Performed At | + + + + + | APTT | 31Comment: Testing | 23 - 32 seconds | [facility] | | | performed at [facility];[address] | | [address];[place] | | | | | [address] | | | + + + + + + + + + + | Performing | Address | City/State/Zipcode | Phone Number | | Organization | | | | + + + + + | [facility] | [address] | [place] [address] | | + + + + + Protime-INR (09/28/2017 8:09 PM) + + + + + | Component | Value | Ref Range | Performed At | + + + + + | INR | 1.1Comment: REFERENCE | | [facility] | | | RANGE:0.9 [...] | | | | | performed at [facility];[address] | | [address];[place] | | | | | [address] | | | + + + + + + + + + + | Performing | Address | City/State/Zipcode | Phone Number | | Organization | | | | + + + + + | [facility] | [address] | [place] [address] | | + + + + + Septic Lactic Acid (09/28/2017 8:09 PM) + + + + + | Component | Value | Ref Range | Performed At | + + + + + | LACTIC ACID | 1.0Comment: Testing | 0.4 - 2.0 mmol/L | [facility] | | | performed at [facility];[address] | | | | | [address];[place] | | | | | [address] | | | + + + + + + + + + + | Performing | Address | City/State/Zipcode | Phone Number | | Organization | | | | + + + + + | [facility] | [address] | [place] [address] | | + + + + + D dimer,quant (09/28/2017 8:09 PM) + + + + + | Component | Value | Ref Range | Performed At | + + + + + | D DIMER, | 0.59 (H)Comment: D Dimer | 0.19 - 0.50 mg/L FEU | [facility] | | QUANTITATIVE | [...] | | | | | performed at [facility];[address] | | | | | [facility];[place], [place] | | | | | [address] | | | + + + + + + + | Specimen | + + | Blood | + + + + + + + | Performing | Address | City/State/Zipcode | Phone Number | | Organization | | | | + + + + + | [facility] | [address] | [place] [address] | | + + + + + PROCALCITONIN (09/28/2017 8:09 PM) + + + + + | Component | Value | Ref Range | Performed At | + + + + + | PROCALCITONIN | 0.93 (H)Comment: | <0.5 ng/mL | [facility] | | | INTERPRETIVE [...] performed | | | | | at [facility];[address] | [address];[place] [address] | | | + + + + + + + + + + | Performing | Address | City/State/Zipcode | Phone Number | | Organization | | | | + + + + + | [facility] | [address] | [place] [address] | | + + + + + [...] 78 | 35 - 115 U/L | [facility] | + + + + + | AST | 15 | 10 - 45 U/L | [facility] | + + + + + | ALT | 27 | 10 - 65 U/L | [facility] | + + + + + | EGFR | >60Comment: GFR <60: | >60 mL/min/1.73m2 | [facility] | | | CHRONIC [...] | | | | | performed at [facility] | | | | | [facility];[place] | | | | | [address] | | | + + + + + + + + + + | Performing | Address | City/State/Zipcode | Phone Number | | Organization | | | | + + + + + | [facility] | [address] | [place] [address] | | + + + + + Troponin I (09/28/2017 8:09 PM) + + + + + | Component | Value | Ref Range | Performed At | + + + + + | TROPONIN I | <0.020Comment: 0.00 to | 0.00 - 0.10 ng/mL | [facility] | | | 0.10 [...] | | | | CRITERIA FOR ACUTE MO | | | | | Testing performed at | | | | | [facility];[address] [facility] | | | | | [facility];[place] [address] | | | + + + + + + + + + + | Performing | Address | City/State/Zipcode | Phone Number | | Organization | | | | + + + + + | [facility] | [address] | [place] [address] | | + + + + + [...] performed at | | | | | [facility] | | | | | [address];[place] [address] | | | + + + + + + + + + + | Performing | Address | City/State/Zipcode | Phone Number | | Organization | | | | + + + + + | [facility] | [address] | [place] [address] | | + + + + + CPK (09/28/2017 8:09 PM) + + + + + | Component | Value | Ref Range | Performed At | + + + + + | CPK | 51 (L)Comment: Testing | 55 - 400 U/L | [facility] | | | performed at [facility];[address] | | | | | [address];[place] | | | | | [address] | | | + + + + + + + + + + | Performing | Address | City/State/Zipcode | Phone Number | | Organization | | | | + + + + + | [facility] | [address] | [place] [address] | | + + + + + [...] 0 | 0 - 3 mEq/L | [facility] | + + + + + | POC S02 | 93 (L)Comment: Testing | 95 - 98 % | [facility] | | | performed at [facility];[address] | | | | | [address];[place] | | | | | [address] | | | + + + + + + + + + + | Performing | Address | City/State/Zipcode | Phone Number | | Organization | | | | + + + + + | [facility] | [address] | [place] [address] | | + + + + + XR chest PA and lateral (09/28/2017 7:04 PM) + + + | Impressions | Performed At | + + + | Bilateral pulmonary vascular congestion. Bibasilar atelectasis. | [facility] | | | RADIOLOG[facility] | + + + + + + | Narrative | Performed At | + + + | CHEKO Looney CLAVERACK 1950 67 years Male XR CHEST 2 [...] | + + + + + | [facility] | [address] | [place] [address] | | + + + + + aPTT (09/28/2017 6:00 PM) + + + + + | Component | Value | Ref Range | Performed At | + + + + + | APTT | 29Comment: Testing | 23 - 32 seconds | [facility] | | | performed at [facility];[address] | | | | | [address];[place] | | | | | [address] | | | + + + + + + + + + + | Performing | Address | City/State/Zipcode | Phone Number | | Organization | | | | + + + + + | [facility] | [address] | [place] [address] | | + + + + + Protime-INR (09/28/2017 6:00 PM) + + + + + | Component | Value | Ref Range | Performed At | + + + + + | INR | 1.1Comment: REFERENCE | | [facility] | | | RANGE:0.9 [...] | | | | | performed at [facility];[address] | | | | | [address];[place], [place] | | | | | [address] | | | + + + + + + + + + + | Performing | Address | City/State/Zipcode | Phone Number | | Organization | | | | + + + + + | [facility] | [address] | [place] [address] | | + + + + + BNP (09/28/2017 5:40 PM) + + + + + | Component | Value | Ref Range | Performed At | + + + + + | BRAIN NATRIURETIC | 32.9Comment: Testing | 0 - 100 pg/mL | [facility] | | PEPTIDE | performed at [facility];[address] | | | | | [address];[place] | | | | | [address] | | | + + + + + + + | Specimen | + + | Blood | + + + + + + + | Performing | Address | City/State/Zipcode | Phone Number | | Organization | | | | + + + + + | [facility] | [address] | [place] [address] | | + + + + + [...] 32.0 | 27.0 - 34.0 pg | [facility] | + + + + + | MCHC | 33.1 | 32.0 - 35.5 g/dL | [facility] | + + + + + | RDW SD | 48.6 | 37 - 53 fl | [facility] | + + + + + | PLT | 194 | 150 - 400 K/uL | [facility] | + + + + + | MPV | 9.4 | fl | [facility] | + + + + + [...] Testing | 0.00 - 0.10 K/uL | [facility] | | | performed at [facility];[address] | | | | | [address];[place], [place] | | | | | [address] | | | + + + + + | SODIUM | SPECIMEN HEMOLYZED, WILL | 135 - 145 mmol/L | [facility] | | | BE REDRAWN RN TO SEND | | | + + + + + | POTASSIUM | SPECIMEN HEMOLYZED, WILL | 3.5 - 4.9 mmol/L | [facility] | | | BE REDRAWN RN TO SEND | | | + + + + + | CHLORIDE | SPECIMEN HEMOLYZED, WILL | 99 - 109 mmol/L | [facility] | | | BE REDRAWN RN TO SEND | | | + + + + + | CO2 | SPECIMEN HEMOLYZED, WILL | 23 - 32 mmol/L | [facility] | | | BE REDRAWN RN TO SEND | | | + + + + + | ANION GAP AGAP | SPECIMEN HEMOLYZED, WILL | 5 - 20 mmol/L | [facility] | | | BE REDRAWN RN TO SEND | | | + + + + + | GLUCOSE | SPECIMEN HEMOLYZED, WILL | 65 - 99 mg/dL | [facility] | | | BE REDRAWN RN TO SEND | | | + + + + + | BUN | SPECIMEN HEMOLYZED, WILL | 8 - 25 mg/dL | [facility] | | | BE REDRAWN RN TO SEND | | | + + + + + | CREATININE | SPECIMEN HEMOLYZED, WILL | 0.70 - 1.30 mg/dL | [facility] | | | BE REDRAWN RN TO SEND | | | + + + + + | BUN/CREAT | SPECIMEN HEMOLYZED, WILL | | [facility] | | | BE REDRAWN RN TO SEND | | | + + + + + | CALCIUM | SPECIMEN HEMOLYZED, WILL | 8.5 - 10.5 mg/dL | [facility] | | | BE REDRAWN RN TO SEND | | | + + + + + | TOTAL PROTEIN | SPECIMEN HEMOLYZED, WILL | 6.3 - 8.2 g/dL | [facility] | | | BE REDRAWN RN TO SEND | | | + + + + + | Albumin | SPECIMEN HEMOLYZED, WILL | 3.3 - 4.8 g/dL | [facility] | | | BE REDRAWN RN TO SEND | | | + + + + + | GLOBULIN | SPECIMEN HEMOLYZED, WILL | 1.3 - 4.9 g/dL | [facility] | | | BE REDRAWN RN TO SEND | | | + + + + + | A/G | SPECIMEN HEMOLYZED, WILL | 1.0 - 2.4 | [facility] | | | BE REDRAWN RN TO SEND | | | + + + + + | TBIL | SPECIMEN HEMOLYZED, WILL | 0.1 - 1.5 mg/dL | [facility] | | | BE REDRAWN RN TO SEND | | | + + + + + | ALK PHOS | SPECIMEN HEMOLYZED, WILL | 35 - 115 U/L | [facility] | | | BE REDRAWN RN TO SEND | | | + + + + + | AST | SPECIMEN HEMOLYZED, WILL | 10 - 45 U/L | [facility] | | | BE REDRAWN RN TO SEND | | | + + + + + | ALT | SPECIMEN HEMOLYZED, WILL | 10 - 65 U/L | [facility] | | | BE REDRAWN RN TO SEND | | | + + + + + | EGFR | SPECIMEN HEMOLYZED, WILL | >60 mL/min/1.73m2 | [facility] | | | BE REDRAWN RN TO SEND | | | + + + + + | CPK | SPECIMEN HEMOLYZED, WILL | 55 - 400 U/L | [facility] | | | BE REDRAWN RN TO SEND | | | + + + + + | PROTIME | SPECIMEN HEMOLYZED, WILL | seconds | [facility] | | | BE REDRAWN RN TO SEND | | | + + + + + | INR | SPECIMEN HEMOLYZED, WILL | | [facility] | | | BE REDRAWN RN TO SEND | | | + + + + + | APTT | SPECIMEN HEMOLYZED, WILL | 23 - 32 seconds | [facility] | | | BE REDRAWN RN TO SEND | | | + + + + + | MMB | SPECIMEN HEMOLYZED, WILL | 0.5 - 3.6 ng/mL | [facility] | | | BE REDRAWN RN TO SEND | | | + + + + + | CK-MB Index | SPECIMEN HEMOLYZED, WILL | | [facility] [facility] | | | BE REDRAWN ELVIS TO SEND | | | + + + + + + + + + + | Performing | Address | City/State/Zipcode | Phone Number | | Organization | | | | + + + + + | [facility] | [address] | [place] [address] | | + + + + + [...] + + + + | Calculated P [place] | 16 | degrees | [facility] | + + + + + | Calculated R [place] | 17 | degrees | [facility] | + + + + + | Calculated T [place] | 18 | degrees | [facility] [...] | | | | | ONLY, -COMPUTER ([id number]), | | | | | editor in chief newspaper Keara Beckwith | | | | | ([id number]) on 09/29/2017 | | | | | 3:54:34 AM | | | + + + + + + + + + + | Performing | Address | City/State/Zipcode | Phone Number | | Organization | | | | + + + + + | [facility] | [address] | [place] [address] | | + + + + + ED INFORMATION EXCHANGE (09/28/2017 3:51 PM) + + + | Narrative | Performed At | + + + | [id number] This patient has registered at the | ED | | [facility] Emergency Department For more | INFORMATION | | information visit: | EXCHANGE | | [email or web address] | | | [phone] Security Events No recent Security Events currently on file | | | ED Care Guidelines from [facility] Last Updated: 08/29/17 | | | 9:04 AM Additional Information: Currently placed at [place] | | | Care [facility], please contact Glo | | | El[place] [phone].Prescription medication goes through [facility], | | | [phone]. These are guidelines and the provider should exercise | | | clinical judgment when providing care. Recent Emergency Department | | | Visit Summary Admit Date Facility City State Type Major Type | | | Diagnoses or Chief Complaint [facility] Emergency Emergency Weakness Shortness of | | | Breath [facility] | | | Emergency Emergency Shortness of Breath Weakness | | | Lymphedema, not elsewhere classified E.D. Visit Count | | | (12 mo.) Facility Visits Low Acuity [facility] | | | 3 0 Total 3 [...] Phone Fax Service Dates | | | [facility] Provider ([phone]) | | | [phone] Current Known Aliases No known aliases. | [...] | | facilities for additional information. 2018 [employer] | | | [employer] - [place], [place] - | | | [email or web address] | | + + + + + | Procedure Note | + + | Elsy, Lab - 09/28/2017 3:52 PM PDT Formatting of this note may be different | | from the original.[id number] patient has registered at the [facility] | | [facility] Emergency Department For more information visit: | | [email or web address] Security | | EventsNo recent Security Events currently on fileED Care Guidelines from [employer] - | | Alexis Updated: 08/29/17 9:04 AM Additional Information:Currently placed at | | [facility], please contact Glo [place] | | [phone].Prescription medication goes through [facility], .These are | | guidelines and the provider should exercise clinical judgment when providing care.Recent | | Emergency Department Visit SummaryAdmit Date Facility City State Type Major Type | | Diagnoses or Chief Complaint Sep 28, 2017 [facility] [place]. [place] Emergency | | Emergency Weakness Shortness of Breath Aug 28, 2017 [facility] Nestor Hoyos. | | [place] Emergency Emergency Shortness of Breath Weakness Lymphedema, not elsewhere | | classified E.D. Visit Count (12 mo.)Facility Visits Low Acuity [facility] | | Center 3 0 Total 3 0 Note: Visits indicate total known visits. Medicaid Low Acuity Dx | | are the number of primary diagnoses on the Medicaid's Low Acuity dx list. Recent | | Inpatient Visit SummaryNo recorded inpatient visits. PDMP ReportPDMP query found no | | report.Care ProvidersProvider PRC Type Phone Fax Service Dates [facility] Edvin | | Mental Health Provider Current [...] facilities for additional information. 2018 | | [employer] - [place], [place] - | | [email or web address] | | | | | | | |E.D. Visit Count (12 mo.) | |Facility Visits Low Acuity | |[facility] 3 0 | |Total 3 0 | [...] PRC Type Phone Fax Service Dates | |[facility] Mental [facility] Provider Current | | | |Known [...] aforementioned facilities for additional information. | |2018 [employer] - [place], [place] - [email or web address] | + + + +---------+ + + [...] COPD (chronic obstructive pulmonary disease) ([facility]) | + + | Chronic airway obstruction, [...]
--- OUTSIDE RECORDS SUMMARY | ~2017-11-20 | XMS | Encounter Summary ---
Demographics + + + | Address | [address] | | | [place] [address] | + + + | Home Phone | | + + + | Preferred Language | Unknown | + + + | Marital Status | | + + + | Episcopal Affiliation | 1041 | + + + | Race | Unknown | + + + | Ethnic Group | Unknown | + + + Author + + + | Author | [facility] | + + + | Organization | [facility] | + + + | Address [...] Team Providers + +------+ + | Care Teleprinter Name | Role | Phone | + [...] + + | 08/28/ | Emergency | [facility] | Ivan Ann DO | Lymphedema (Primary | | 2018 | | Medical Center | Emergency | Dx); Generalized | | | | Emergency Department | Department [address] | weakness | | | | [address] | [address] | | | | | [place] [address] | [place] [address] | | | | | [phone] | [phone] | | | | | | | [...] be sent through Care Everywhere.Weakness (Uncertain Cause) (Japanese)Lymphedema, Managing (Japanese)in this encounter Medications at Time of Discharge [...] | | | | | | (DRISDOL) [address] | mouth once a week. 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 RIGHT | MARI [...] | + + + + + | [facility] | [address] | [place] [address] | | + + + + + [...] | + + + | [place]KO [place]oney [place] 1950 67 years XR CHEST 2 VIEW [...] - 08/28/2017 5:37 PM PDT [place]oney [place] yearsXR | | CHEST 2 VIEW FRONTAL [...] | + + + + + | [facility] | [address] | [place] [address] | | + + + + + POC cardiac troponin (08/28/2017 5:05 PM) + + + + + | Component | Value | Ref Range | Performed At | + + + + + | POC CARDIAC TROPONIN | 0.00Comment: 0.00 to | 0.00 - 0.10 ng/mL | [facility] | | | 0.10 Consistent [...] for Acute | | | | | [place] Testing performed at | | | | | [facility];[address] | | | | | [address];[place] [address] | | | + + + + + + + + + + | Performing | Address | City/State/Zipcode | Phone Number | | Organization | | | | + + + + + | [facility] | [address] | [place] [address] | | + + + + + BNP (08/28/2017 4:50 PM) + + + + + | Component | Value | Ref Range | Performed At | + + + + + | BRAIN NATRIURETIC | 33.1Comment: Testing | 0 - 100 pg/mL | [facility] | | PEPTIDE | performed at [facility];[address];[place] | | | | | [address] | | | + + + + + + + | Specimen | + + | Blood | + + + + + + + | Performing | Address | City/State/Zipcode | Phone Number | | Organization | | | | + + + + + | [facility] | [address] | [place] [address] | | + + + + + Cardiac Panel (08/28/2017 4:50 PM) + + + + + | Component | Value | Ref Range | Performed At | + + + + + | WBC | 5.47 | 3.80 - 11.00 K/uL | [facility] | + + + + + | RBC | 4.26 | 4.20 - 5.70 M/uL | [facility] | + + + + + | HGB | 13.7 | 13.2 - 17.0 g/dL | [facility] | + + + + + [...] 51.2 | 37 - 53 fl | [facility] | + + + + + | PLT | 175 | 150 - 400 K/uL | [facility] | + + + + + | MPV | 9.0 | fl | [facility] | + + + + + | DIFF TYPE | AUTOMATED | | [facility] | + + + + + [...] 3.9 | 3.5 - 4.9 mmol/L | [facility] | + + + + [...] 0.9 (L) | 1.0 - 2.4 | [facility] | + + + + + | TBIL | 0.2 | 0.1 - 1.5 mg/dL | [facility] | + + + + + | ALK PHOS | 74 | 35 - 115 U/L | [facility] | + + + + + | AST | 20 | 10 - 45 U/L | [facility] | + + + + + | ALT | 33 | 10 - 65 U/L | [facility] | + + + + + | EGFR | >60Comment: GFR <60: | >60 mL/min/1.73m2 | [facility] | | | CHRONIC KIDNEY [...] (L) | 55 - 400 U/L | [facility] | + + + + + | INR | 1.0Comment: REFERENCE | | [facility] | | | RANGE:0.9 - [...] 29 | 23 - 32 seconds | [facility] | + + + + + | MMB | <1.0 | 0.5 - 3.6 ng/mL | [facility] | + + + + + | CK-MB Index | UNABLE TO | | [facility] | | | CALCULATEComment: | | | | | Testing performed at | | | | | [facility];[address];[place] [address] | | | + + + + + + + + + + | Performing | Address | City/State/Zipcode | Phone Number | | Organization | | | | + + + + + | [facility] | [address] | [facility] [place] [id number] | | + + + + + [...] + + + + | Calculated P [place] | 23 | degrees | [facility] | + + + + + | Calculated R [place] | 21 | degrees | [facility] | + + + + + | Calculated T [place] | 25 | degrees | [facility] [...] -COMPUTER ([id number]), | | | | | fan mail editor Diomedes Lo | | | | | Roque (123) on 08/28/2017 | | | | | 9:43:27 PM | | | + + + + + + + + + + | Performing | Address | City/State/Zipcode | Phone Number | | Organization | | | | + + + + + | [facility] | [address] | [place] [address] | | + + + + + Urinalysis (reflex to microscopic/reflex to culture) (08/28/2017 4:01 PM) + + + + + | Component | Value | Ref Range | Performed At | + + + + + | COLOR UA | STRAW | | [facility] | + + + + + | CLARITY | CLEAR | | [facility] | + + + + + | Specific [place], UA | 1.004 | 1.002 - 1.030 | [facility] | + + + + + | LEUKOCYTE ESTERASE | NEGATIVE | NEGATIVE | [facility] | + + + + + [...] KETONES | NEGATIVE | NEGATIVE mg/dL | [facility] | + + + + + | BILIRUBIN | NEGATIVE | NEGATIVE | [facility] | + + + + + | GLUCOSE | NEGATIVEComment: Testing | NEGATIVE mg/dL | [facility] | | | performed at [facility];[address];[place] | | | | | [address] | | | + + + + + + + | Specimen | + + | Urine, Clean Catch | + + + + + + + | Performing | Address | City/State/Zipcode | Phone Number | | Organization | | | | + + + + + | [facility] | [address] | [place] [address] | | + + + + + [...]
--- OUTSIDE RECORDS SUMMARY | 2017-11-20 13:50 | XMS ---
PreManage Notification: VIVIENNE HOWELL Security Material Flow Analyst Events No recent Security Events currently on file CRITERIA MET - 6 ED Visits in 6 Months - [facility] - Has Care Guidelines - POLST - [facility] - 3 Facilities in 90 Days - [facility] - 2 Visits in 30 Days CARE PROVIDERS LEAH BARKER Physician Geophysics Professor Current PHONE: [phone] Jim Barker- Rotary Shear Cutter Current [employer]id PHONE: [phone] [facility] Mental Health Provider [facility] PHONE: [phone] Guidelines Source: Reyna Reis Guidelines Date: 08/29/2017 Additional Information: Currently placed at [facility], please contact Glo Granger [phone].\T\[facility]; Prescription medication goes through [facility], . ESalome VISIT COUNT (12 MO.) [address] 1 SHARON Jaquez TOTAL 6 NOTE: Visits indicate total known visits. ED/UCC VISIT TRACKING (12 MO.) 11/20/2017 13:47 [facility] [place]ente [place] TYPE: Emergency COMPLAINT: - SOB/BACK PAIN/FALL [facility] DIAGNOSES: - Cough - Unspecified fall, initial encounter - Weakness - Fall - Urinary Tract Infection - Wedge compression fracture of first lumbar vertebra, initial encounter for closed fracture - Altered Mental Status - increased confusion, dizziness, weakness, and coughing. pt has UTI, MRSA, and recent hx of pneumonia 11/09/2017 01:37 [facility] TYPE: Emergency COMPLAINT: - URO MALE 09/28/2017 15:[facility] DIAGNOSES: - Chronic obstructive pulmonary disease with (acute) exacerbation - Other forms of dyspnea - Weakness - Shortness of Breath 08/28/2017 15:[facility] DIAGNOSES: - Weakness - Shortness of Breath - Weakness - Lymphedema, not elsewhere classified 06/08/2017 17:50 [facility] TYPE: Emergency DIAGNOSES: - Shortness of Breath - Swelling - Hypoxemia INPATIENT VISIT TRACKING (12 MO.) 09/28/2017 15:48 [facility] DIAGNOSES: - Hypoxemia - Other forms of dyspnea - Chronic obstructive pulmonary disease with (acute) exacerbation - Other specified soft tissue disorders [email or web address]
[2017-11-20] MEDS ORDERED: VITAMIN D50000 UNI1 PO (14:33)
[2017-11-20] MEDS ORDERED: ZOCOR40 MG PO (14:34)
[2017-11-20] MEDS ORDERED: OMEPRAZOLE20 MG PO (14:34)
[2017-11-20] MEDS ORDERED: IPRAT-ALBUT 0.5-3 ML INH (14:36)
[2017-11-20] MEDS ORDERED: DOCUSATE SODIUM (14:36)
[2017-11-20] MEDS ORDERED: LIDODERM1 EACH TD (18:28)
--- NOTE | 2017-11-20 20:51 | EKG ---
[facility] [address] [place], [place] [address] Signed Normal sinus rhythm Normal ECG No previous ECGs available Confirmed by CHRIS PARTIDA DO ([id number]) on 11/20/2017 8:51:15 PM Electronically Signed By: CHRIS PARTIDA DO 11/20/172050 PATIENT NAME: ALEXIS HOWELLMIKEL Lonoey Electrocardiogram DATE OF : 46 PHYSICIAN: CHRIS PARTIDA DO REPORT #: [id number] REPORT IS CONFIDENTIAL AND NOT TO BE RELEASED WITHOUT AUTHORIZATION
== END 2017-11-20 19:10 | disposition home or self-care (01) ==
LOC: ED 13:46
DX: G93.41 Metabolic encephalopathy (principal); S32.019D Unspecified fracture of first lumbar vertebra, subsequent encounter for fracture with routine healing; Z79.899 Other long term (current) drug therapy
CPT/HCPCS: 36600; 70450; 71045; 80053; 81001; 82803; 83605; 85025; 93005; 93010; 99285